=== PATIENT | female | born 1945 | race American Indian/Alaskan Native ===

== ENCOUNTER 2016-06-17 13:46 | Emergency (ER) | payer MEDICARE, MEDICAID ==
[2016-06-17] MEDS ORDERED: Ondansetron ODT TAB* 4 MG PO ONE (14:49)
[2016-06-17] MEDS ORDERED: Phenazopyridine TAB* 100 MG PO ONE (14:49)
--- NOTE | 2016-06-17 15:39 | RAD ---
Indication: Right great toe injury. 3 views of the right great toe demonstrates no fracture. No other bone or joint abnormality is identified. IMPRESSION: No fracture of the right great toe is noted.
--- NOTE | 2016-06-17 15:43 | ED ---
Skin Complaint - HPI Summary HPI Summary: 71F w/ PMH of DM and HTN presents with right great toe injury today. She state she does not take anything for her DM but has diabetic neuropathy in her feet. She states she did not notice any injury today but her toe was normal today and then she noticed her nail was bleeding. She is here for antibiotic prophylaxis as she has a previous foot infection and almost had her foot amputated. She cleaned the area and placed neosporin on it. The nail is still on her foot but is very loose. Denies any chest pain, SOB, or headache. Has history of HTN and took medication today. - History of Current Complaint Chief Complaint: EDExtremityLower Time Seen by Provider: 06/17/16 14:48 Stated Complaint: TOE PAIN Pain Intensity: 0 - Additional Pertinent History Primary Care Physician: JORDAN - Allergy/Home Medications Allergies/Adverse Reactions: Allergies Allergy/AdvReac Type Severity Reaction Status Date / Time Codeine Allergy Intermediate Hives Verified 10/06/15 13:42 Latex Allergy Intermediate Hives Verified 10/06/15 13:42 Sulfa Drugs Allergy Intermediate Hives Verified 10/06/15 13:42 Adhesive Tape Allergy Rash Verified 10/06/15 13:42 PMH/Surg Hx/FS Hx/Imm Hx Endocrine/Hematology History: Reports: Hx Diabetes - TYPE II- NO MEDICATION FOR - DIET CONTROLLED PER PATIENT, Hx Thyroid Disease - GOITERS Denies: Hx Anticoagulant Therapy Cardiovascular History: Reports: Hx Hypercholesterolemia, Hx Hypertension - ON MEDICATION FOR Denies: Hx Congestive Heart Failure, Hx Pacemaker/ICD Respiratory History: Reports: Hx Asthma, Hx Chronic Obstructive Pulmonary Disease (COPD) Denies: Hx Sleep Apnea GI History: Reports: Hx Gastroesophageal Reflux Disease, Other GI Disorders - ESOPHAGUS "WEAK"-DIFF SWALLOWING PILLS AT TIMES History: Reports: Hx Kidney Infection, Other Problems/Disorders - KIDNEY INFECTIONS Denies: Hx Renal Disease Musculoskeletal History: Reports: Hx Arthritis, Hx Rheumatoid Arthritis, Hx Gout , Other Musculoskeletal History - ARTHRITIS Sensory History: Reports: Hx Contacts or Glasses - reading Denies: Hx Hearing Aid Opthamlomology History: Reports: Hx Contacts or Glasses - reading Neurological History: Reports: Hx Headaches - ONCE IN A WHILE, Hx Seizures - A CHILD, Hx Transient Ischemic Attacks (TIA) Denies: Hx Dementia Psychiatric History: Reports: Hx Depression, Hx Suicide Attempt - in the past- 1980, Hx Substance Abuse - in the past - Surgical History Surgery Procedure, Year, and Place: TONSILECTOMY. ADENOIDECTOMY. TUBAL LIGATION-[facility]. HYSTERECTOMY-[facility]. CHOLECYSTECTOMY-[facility]. PARTIAL THYROIDECTOMY LEFT- [facility] Hx Anesthesia Reactions: No - Immunization History Date of Tetanus Vaccine: UNKNOWN Date of Influenza Vaccine: UNKNOWN Infectious Disease History: No Infectious Disease History: Denies: Hx Hepatitis, Hx Human Immunodeficiency Virus (HIV), Traveled Outside the [place] in Last 30 Days - Family History Known Family History: Positive: None - reviewed & noncontributory, Cardiac Disease - AAA - Social History Alcohol Use: None Hx Substance Use: No Substance Use Type: Reports: None Hx Tobacco Use: Yes - quit 1985 Smoking Status (MU): Former Smoker Type: Cigarettes Amount Used/How Often: 2 PPD X 23 YEARS Have You Smoked in the Last Year: No Review of Systems Negative: Fever Negative: Chest Pain Negative: Shortness Of Breath Positive: Other - nail abrasion All Other Systems Reviewed And Are Negative: Yes Physical Exam Triage Information Reviewed: Yes Vital Signs On Initial Exam: Initial Vitals Temp Pulse Resp BP Pulse Ox 97.3 F 57 97 06/17/16 13:58 06/17/16 13:58 06/17/16 13:58 06/17/16 13:58 06/17/16 13:58 Vital Signs Reviewed: Yes Appearance: Positive: Well-Appearing Skin: Positive: Warm, Dry Head/Face: Positive: Normal Head/Face Inspection Eyes: Positive: Normal, Conjunctiva Clear Respiratory/Lung Sounds: Positive: Clear to Auscultation, Breath Sounds Present Cardiovascular: Positive: Normal, RRR Musculoskeletal: Positive: Strength/ROM Intact - of great toe right, Other - good pulsess, has no sensation of toe at baseline, nail is loose on nailbed with abrasion around nail Diagnostics - Vital Signs Vital Signs Temp Pulse Resp BP Pulse Ox 06/17/16 14:26 97.3 F 57 97 06/17/16 13:58 97.3 F 57 97 - Laboratory Lab Statement: Any lab studies that have been ordered have been reviewed, and results considered in the medical decision making process. - Radiology toe Xray Interpretation: No Acute Changes Radiology Interpretation Completed By: Radiologist Course/Dx - Course Course Of Treatment: 71F presents with injury to right great toe today that does not know how got as has DM neuropathy and can not feel toes. Cleaned area prior to arrival. on exam no suturable area clean toe and placed steri strips on to keep nail on as long as possible, will place on keflex due to DM and previous foot infection. xray toe normal. told to follow up with primary as BP is high and for wound check. BP on manual was 178/80 and denies any symptoms for HTN. patient understands and agrees with plan - Differential Diagnoses - Skin Complaint Differential Diagnoses: Abscess, Cellulitis, Other - laceration - Diagnoses Provider Diagnoses: Injury of great toe, Hypertension Discharge - Discharge Plan Condition: Good Disposition: HOME Prescriptions: Cephalexin CAP* [Keflex CAP*] 500 mg PO QID #27 cap Referrals: Neno Busch MD [Primary Care Provider] - Additional Instructions: Take antibiotics four times a day for 7 days, first dose given in ED Keep area clean and dry, apply neosporin to area Follow up with primary within 3 days for wound check and for high blood pressure Establish care with sawdust drier for foot care Return to ED if develop fever, spread redness, or any new or worsening symptoms
[2016-06-17] MEDS ORDERED: Cephalexin CAP* 500 MG PO ONE (15:45)
[2016-06-17 15:46] VITALS: BP 172/80
== END 2016-06-17 16:05 | disposition home or self-care (01) ==
LOC: ED 13:46
DX: S90.411A Abrasion, right great toe, initial encounter (principal); I10 Essential (primary) hypertension; X58.XXXA Exposure to other specified factors, initial encounter; Y93.9 Activity, unspecified; Y92.9 Unspecified place or not applicable
CPT/HCPCS: 99282

== ENCOUNTER → 2017-09-25 06:47 | Day surgery (SDC) | payer MEDICARE, MEDICAID ==
[~2017-09-25 06:47] MED LIST: Atenolol TAB* 50 MG PO ONE; Heparin 2 UNITS/ML IVPREMIX* 2,000 ML IV ONE; Heparin(*) 1000 UNIT/ML 10 ML VIAL CATH LAB IV ONE; Iohexol 350 (CONTRAST) 200 ML MDV IV ONE; LORazepam TAB(*) 1 MG ONE; Lidocaine 1%* 5 ML VIAL ONE; Lisinopril TAB* 10 MG PO ONE; Metoprolol Tartrate IV* 1 MG/ML 5 ML VIAL ONE; Midazolam* 1 MG/ML 5 ML VIAL (5 MG) ONE; VERAPAMIL 2.5 MG/ML 2 ML VIAL ** 5 mg/2 ml ONE; fentaNYL* 50 MCG/ML 2 ML VIAL (100 MCG VIAL) ONE; nitroGLYCERIN DRIP* 25,000 MCG/250 ML BTL ONE
[2017-09-25 09:13] LABS: ABS Basophils 0 10^3/ul (0-0.2); ABS Eosinophils 0.1 10^3/ul (0-0.6); ABS Lymphocytes 1.4 10^3/ul (1.0-4.8); ABS Monocytes 0.4 10^3/ul (0-0.8); ABS Neutrophils 5.5 10^3/ul (1.5-7.7); ABS Nucleated RBC 0 10^3/ul; Hematocrit 32 % (35-47); Hemoglobin 10.4 g/dl (12.0-16.0); Lymphocyte % 18.7 % (25-47); Mean Corpuscular HGB Conc 33 g/dl (31-36); Mean Corpuscular Hemoglobin 26 pg (27-31); Mean Corpuscular Volume 78 fL (80-97); Mean Platelet Volume 7.8 um3 (7.4-10.4); Nucleated Red Blood Cells % 0; Platelet Count 232 10^3/ul (150-450); Red Blood Count 4.08 10^6/ul (4.00-5.40); Red Cell Distribution Width 17 % (10.5-15); White Blood Count 7.5 10^3/ul (3.5-10.8)
[2017-09-25 09:28] LABS: INR 0.94 (0.77-1.02)
[2017-09-25 09:32] LABS: EGFR Non-African American 78.1 (>60)
[2017-09-25 13:50] VITALS: BP 174/65
--- NOTE | 2017-09-25 21:12 | RAD ---
CPT II Codes: G9500 Procedure(s) performed: 1. Diagnostic pelvic and bilateral lower extremity arteriogram. 2. Atherectomy and balloon angioplasty of the left superficial femoral artery. 3. Minx closure device to the right common femoral arteriotomy. Date of service: September 25, 2017 Indication for procedure: Lower extremity claudication pain and history of poorly healing foot bones Comparison: EDY/PVR May 15, 2017 Contrast: 95 mL Omnipaque 350 Fluoroscopy Time: 17.9 minutes Vessels Accessed: Percutaneous access was obtained with ultrasound guidance in the right common femoral artery in the retrograde direction towards the heart. Catheter arteriography, with the catheter tip located within the lumen of the following arteries, was performed at the right external iliac artery, aorta, left external iliac artery, left common femoral artery, left superficial femoral artery and left popliteal artery. Anesthesia: Conscious sedation with IV Fentanyl and Versed as well as local 1% lidocaine injected locally at the arteriotomy site. Conscious sedation time: Timeout: 0825 hours Case end: 1035 hours Total conscious sedation time: 2 hours and 10 minutes Additional medications: * 500 mcg IA nitroglycerin injected intermittently throughout the course of the procedure to alleviate arterial spasm and to control hypertension. * IV heparin 5000 Units to achieve a goal ACT of 250-300. * The patient received 1 mg of p.o. Ativan prior to the onset of the procedure. * Metoprolol 15 mg IV administered in 5 mg aliquots PROCEDURE NOTE AND INTRAPROCEDURAL IMAGING FINDINGS: Immediately prior to the procedure the patient signed consent after thoroughly discussing all risks, benefits and alternative therapies. The patient was positioned on the fluoroscopy table in the supine position and the bilateral groins were shaved, prepped and the patient was draped in standard sterile fashion. Using fluoroscopic imaging the location of the right common femoral head was marked externally with a skin marker on the patient's groin. Utilizing sonographic guidance and palpation, the right common femoral artery was cannulated overlying the femoral head with an 18-gauge needle. An ultrasound image was saved. A 0.035" wire was slowly and smoothly advanced into the common femoral artery under fluoroscopic imaging. No buckling of the wire was visualized to indicate dissection. With the wire securing percutaneous arterial access, the needle was removed and a 5-[place] SideArm access sheath was advanced under fluoroscopic control into the common femoral artery retrograde into the left external iliac artery securing access. Through the side arm of the access sheath arteriography of the right common femoral artery demonstrated an appropriate puncture of the common femoral artery above the bifurcation and below the inferior epigastric artery. The patient's most recent CT angiogram is dated June 26, 2015 and therefore contrast arteriography is necessary to carefully identify and treat vascular disease. Over the wire a multiside hole flush catheter was advanced into the aorta and contrast arteriography was performed showing the lower abdominal aorta and bilateral iliac arterial system to be adequately patent as far as the bilateral common femoral arteries. The wire was reinserted and utilizing a 5-[place]er C2 catheter access was obtained into the contralateral left side iliac arterial system and a wire was advanced into the left superficial femoral artery. The 5-[place]er catheter was advanced over the wire and contrast arteriography from the left common femoral artery was obtained demonstrating multifocal stenoses in the left superficial femoral artery with the most severe stenosis at the mid-level left superficial femoral artery. From the same access point a second superficial arteriogram was performed demonstrating patent flow in the popliteal artery and proximal anterior tibial artery and tibioperoneal trunk. A third arteriogram was performed from this point more inferiorly including the superior half of the left lower leg which demonstrated no significant filling of the posterior tibial artery and mild multifocal stenoses in the anterior tibial artery but with adequate filling of the CHARLIE and peroneal artery. A long stiff hydrophilic wire was advanced through the catheter and advanced into the left superficial femoral artery securing access. The 5-[place] SideArm sheath was removed and exchanged for a 65 cm 6-[place] sheath which was then advanced over the wire under fluoroscopic control until the tip terminating in the left common femoral artery. Over the wire a 4-[place] curved tip catheter was advanced until the tip was in the left popliteal artery and arteriography of the left lower leg and foot was performed demonstrating in-line flow provided by the anterior tibial artery. The peroneal artery is hypertrophied and provides collateral filling to the plantar arteries while there is little to no significant filling of the diminutive posterior tibial artery. Through the 4-[place]er catheter a 0.014" Viper wire was advanced under fluoroscopic control into the distal left peroneal artery securing access. Over this wire a Diamondback 2.0 Solid orbital atherectomy system was advanced and orbital atherectomy was performed across the proximal and mid level left superficial femoral artery at the previously identified sites of stenoses. Contrast was intermittently injected through the sheath with the tip in the left common femoral artery to evaluate for improved patency and for any complications such as extravasation. The atherectomy system was removed and a 5 mm x 200 mm Passeo balloon was advanced over the wire and balloon angioplasty was performed across the length of the left superficial femoral artery. During each inflation the balloon remained inflated for a minimum of 3 minutes to address spasm. The balloon was inflated to 12 micki corresponding to an approximate diameter measurement of 5.2 mm. After this series of inflation is there are was vastly improved flow briskly through the left superficial femoral artery injecting from the sheath now located at the left external iliac artery. The 0.035 inch stiff hydrophilic wire was reinserted and the long access sheath was removed and exchanged for a 11 cm 6-[place]er sheath which was advanced until the tip was in the right external iliac artery. From this access point arteriography of the right lower extremity was performed demonstrating multifocal stenoses throughout the proximal mid level and upper distal right superficial femoral artery similar to the contralateral side. Patent flow was documented in the right popliteal artery. The anterior tibial artery becomes occluded shortly after its branch point and 2 vessel runoff into the right foot is provided by the posterior tibial and peroneal arteries. Through the side arm of the access sheath arteriography of the right common femoral artery demonstrated an appropriate puncture of the common femoral artery above the bifurcation and below the inferior epigastric artery. After an appropriate resterilization of the arteriotomy and exchange for new sterile gloves, a Minx closure device was deployed at the common femoral arteriotomy and pressure held for approximately 20 minutes. There were no signs of bleeding at the percutaneous arterial access site and the site was dressed with sterile gauze and Tegaderm. The patient tolerated the procedure well and was transferred to angiography holding bay for standard post procedural observation. SUMMARY OF PROCEDURE, IMAGING FINDINGS AND INTERVENTIONS PERFORMED: 1. Diagnostic studies performed: * Arterial access was obtained at the right common femoral artery in the retrograde direction (i.e. towards the heart) with ultrasound guidance. A sonographic image was recorded. * Diagnostic catheter angiography (necessary to perform the appropriate interventions) was performed with the catheter tip in the right external iliac artery, aorta, left external iliac artery, left common femoral artery, left superficial femoral artery and left popliteal artery.. * Catheter arteriography was performed of the lower abdominal aorta, bilateral iliac arterial system and the bilateral lower extremities as far as the forefeet bilaterally. * At the conclusion of the procedure arteriography was performed through the side arm of the access sheath to image the distal right external iliac artery, right common femoral artery and proximal superficial femoral artery and femoral profundus. 2. Interpretation of diagnostic studies performed: * Multifocal stenoses identified in the bilateral superficial femoral arteries. * 2 vessel runoff is provided in the left lower leg by the anterior tibial artery and peroneal artery. The peroneal artery fills the plantar arteries. There is essentially no filling seen in the left posterior tibial artery. * The right anterior tibial artery becomes occluded shortly after its branch point. The patient receives dominant blood flow provided by the right posterior tibial artery supplemented by the peroneal artery. * Arteriography performed for the purpose of deploying a percutaneous arterial closure device demonstrates adequately patent right external iliac artery, common femoral artery and proximal superficial femoral artery and femoral profundus. 3. Surgical interventions performed: * Atherectomy of the left superficial femoral artery utilizing a 2.0 Diamondback Solid orbital atherectomy device followed by balloon angioplasty with a 5 mm x 200 mm Passeo balloon. * Closure of the right common femoral artery was achieved with a Minx closure device followed by 20 minutes of gentle manual pressure. 4. Interpretation of interventions performed: * Final arteriography demonstrated vastly improved brisk flow through the left superficial femoral artery into the popliteal and proximal infrapopliteal left arteries. Plan: 1. Aspirin 81 mg p.o. daily for life. 2. Plavix 75 mg p.o. daily x 6 months. 3. Clinical and imaging follow-up according to standard Interventional Radiology protocol.
== END | disposition home or self-care (01) ==
LOC: CHICATH 06:47
PROVIDERS: ATTEND Radiology Diagnostic Radiology
DX: I70.223 Atherosclerosis of native arteries of extremities with rest pain, bilateral legs (principal); I10 Essential (primary) hypertension; E03.9 Hypothyroidism, unspecified; E11.9 Type 2 diabetes mellitus without complications; Z79.01 Long term (current) use of anticoagulants; Z87.891 Personal history of nicotine dependence; E78.5 Hyperlipidemia, unspecified
CPT/HCPCS: 36415; 75716; 76937; 80048; 85025; 85347; 85610; 99156; 99157; A9270-GY; C1724; C1760; C1769; C1887; C1894; J1644; J2250; J3010; J3490

== ENCOUNTER 2017-11-18 16:38 | Emergency (ER) | payer MEDICARE, MEDICAID ==
[2017-11-18] MEDS ORDERED: NS 0.9% 500 ML* 500 ML IV ONE (17:35)
[2017-11-18 19:04] LABS: EGFR Non-African American 62.2 (>60)
[2017-11-18] MEDS ORDERED: NS 0.9% 1000 ML* 1,000 ML IV ONE (19:19)
[2017-11-18 19:20] LABS: ABS Basophils 0.1 10^3/ul (0-0.2); ABS Eosinophils 0.1 10^3/ul (0-0.6); ABS Lymphocytes 2.4 10^3/ul (1.0-4.8); ABS Monocytes 0.8 10^3/ul (0-0.8); ABS Neutrophils 12.8 10^3/ul (1.5-7.7); ABS Nucleated RBC 0 10^3/ul; Eosinophil % 0.7 % (0-6); Hematocrit 36 % (35-47); Hemoglobin 11.3 g/dl (12.0-16.0); Lymphocyte % 14.6 % (25-47); Mean Corpuscular HGB Conc 31 g/dl (31-36); Mean Corpuscular Hemoglobin 23 pg (27-31); Mean Corpuscular Volume 74 fL (80-97); Mean Platelet Volume 8.6 um3 (7.4-10.4); Nucleated Red Blood Cells % 0; Platelet Count 298 10^3/ul (150-450); Red Cell Distribution Width 19 % (10.5-15); White Blood Count 16.1 10^3/ul (3.5-10.8)
[2017-11-18] MEDS ORDERED: Loperamide CAP* 2 MG PO ONE (21:06)
--- NOTE | 2017-11-18 21:06 | ED ---
Nausea/Vomiting/Diarrhea HPI - HPI Summary HPI Summary: Patient complains of intermittent diarrhea 2 months. States it started after leg stents placed in 09/25/17. Patient states she diarrhea is uncontrollable and she does not always get to the bathroom in time. Denies blood or pain. Patient states she takes Pepto-Bismol and will be fine for a couple days before diarrhea returns. States one episode of diarrhea in a day before she takes Pepto-Bismol and symptoms resolved. Denies fever, cough, sore throat, CP, SOB, N/V/, abdominal pain, change in urine, vaginal symptoms, blood in stools. Medical history is DM, HDL, HTN, blood clots. Patient on Plavix. - History of Current Complaint Chief Complaint: EDAbdPain Stated Complaint: LOOSE STOOL Time Seen by Provider: 11/18/17 17:32 Hx Obtained From: Patient Onset/Duration: Gradual Onset Timing: Intermittent Episodes Lasting: Severity Currently: None Pain Intensity: 0 Pain Scale Used: 0-10 Numeric Diarrhea Presence: Yes Diarrhea Characteristics: Watery - Allergies/Home Medications Allergies/Adverse Reactions: Allergies Allergy/AdvReac Type Severity Reaction Status Date / Time Adhesive Tape Allergy Rash Verified 11/18/17 17:08 codeine Allergy Hives Verified 11/18/17 17:08 latex Allergy Hives Verified 11/18/17 17:08 Sulfa (Sulfonamide Allergy Hives Verified 11/18/17 17:08 Antibiotics) PMH/Surg Hx/FS Hx/Imm Hx Endocrine/Hematology History: Reports: Hx Diabetes - TYPE II- NO MEDICATION FOR - DIET CONTROLLED PER PATIENT, Hx Thyroid Disease - GOITERS Denies: Hx Anticoagulant Therapy Cardiovascular History: Reports: Hx Hypercholesterolemia, Hx Hypertension - ON MEDICATION FOR Denies: Hx Congestive Heart Failure, Hx Pacemaker/ICD Respiratory History: Reports: Hx Asthma, Hx Chronic Obstructive Pulmonary Disease (COPD) Denies: Hx Sleep Apnea GI History: Reports: Hx Gastroesophageal Reflux Disease, Other GI Disorders - ESOPHAGUS "WEAK"-DIFF SWALLOWING PILLS AT TIMES History: Reports: Hx Kidney Infection, Other Problems/Disorders - KIDNEY INFECTIONS Denies: Hx Renal Disease Musculoskeletal History: Reports: Hx Arthritis, Hx Rheumatoid Arthritis, Hx Gout , Other Musculoskeletal History - ARTHRITIS Sensory History: Reports: Hx Contacts or Glasses - reading Denies: Hx Hearing Aid Opthamlomology History: Reports: Hx Contacts or Glasses - reading Neurological History: Reports: Hx Headaches - ONCE IN A WHILE, Hx Seizures - A CHILD, Hx Transient Ischemic Attacks (TIA) Denies: Hx Dementia Psychiatric History: Reports: Hx Depression, Hx Suicide Attempt - in the past- 1980, Hx Substance Abuse - in the past - Surgical History Surgery Procedure, Year, and Place: TONSILECTOMY. ADENOIDECTOMY. TUBAL LIGATION-[facility]. HYSTERECTOMY-[facility]. CHOLECYSTECTOMY-[facility]. PARTIAL THYROIDECTOMY LEFT- [facility] Hx Anesthesia Reactions: No - Immunization History Date of Tetanus Vaccine: UNKNOWN Date of Influenza Vaccine: UNKNOWN Infectious Disease History: No Infectious Disease History: Denies: Hx Hepatitis, Hx Human Immunodeficiency Virus (HIV), Traveled Outside the [place] in Last 30 Days - Family History Known Family History: Positive: None - reviewed & noncontributory, Cardiac Disease - AAA - Social History Alcohol Use: None Hx Substance Use: No Substance Use Type: Reports: None Hx Tobacco Use: Yes - quit 1985 Smoking Status (MU): Former Smoker Type: Cigarettes Amount Used/How Often: 2 PPD X 23 YEARS Have You Smoked in the Last Year: No Review of Systems Constitutional: Negative Eyes: Negative ENT: Negative Cardiovascular: Negative Respiratory: Negative Positive: Diarrhea Genitourinary: Negative Musculoskeletal: Negative Skin: Negative Neurological: Negative Psychological: Normal All Other Systems Reviewed And Are Negative: Yes Physical Exam Triage Information Reviewed: Yes Vital Signs On Initial Exam: Initial Vitals Temp Pulse Resp BP Pulse Ox 97.9 F 79 16 144/99 97 11/18/17 16:47 11/18/17 16:47 11/18/17 16:47 11/18/17 16:47 11/18/17 16:47 Vital Signs Reviewed: Yes Appearance: Positive: Well-Appearing Skin: Positive: Warm Head/Face: Positive: Normal Head/Face Inspection Eyes: Positive: Normal Neck: Positive: Supple Respiratory/Lung Sounds: Positive: Clear to Auscultation Cardiovascular: Positive: Normal Abdomen Description: Positive: Nontender Musculoskeletal: Positive: Normal Neurological: Positive: Normal Psychiatric: Positive: Normal AVPU Assessment: Alert - Ocate Coma Scale Best Eye Response: 4 - Spontaneous Best Motor Response: 6 - Obeys Commands Best Verbal Response: 5 - Oriented Coma Scale Total: 15 Diagnostics - Vital Signs Vital Signs Temp Pulse Resp BP Pulse Ox 11/18/17 20:56 72 197/94 11/18/17 20:43 62 194/73 97 11/18/17 20:13 58 164/65 96 11/18/17 20:00 68 95 11/18/17 19:45 72 95 11/18/17 19:42 73 95 11/18/17 16:47 97.9 F 79 16 144/99 97 - Laboratory Lab Results: Lab Results 11/18/17 11/18/17 Range/Units 18:33 18:33 WBC 16.1 H (3.5-10.8) 10^3/ul RBC 4.90 (4.00-5.40) 10^6/ul Hgb 11.3 L (12.0-16.0) g/dl Hct 36 (35-47) % MCV 74 L (80-97) fL MCH 23 L (27-31) pg MCHC 31 (31-36) g/dl RDW 19 H (10.5-15) % Plt Count 298 (150-450) 10^3/ul MPV 8.6 (7.4-10.4) um3 Neut % (Auto) 79.3 (38-83) % Lymph % (Auto) 14.6 L (25-47) % [place] % (Auto) 4.8 (0-7) % Eos % (Auto) 0.7 (0-6) % Baso % (Auto) 0.6 (0-2) % Absolute Neuts (auto) 12.8 H (1.5-7.7) 10^3/ul Absolute Lymphs (auto) 2.4 (1.0-4.8) 10^3/ul Absolute Monos (auto) 0.8 (0-0.8) 10^3/ul Absolute Eos (auto) 0.1 (0-0.6) 10^3/ul Absolute Basos (auto) 0.1 (0-0.2) 10^3/ul Absolute Nucleated RBC 0 10^3/ul Nucleated RBC % 0 Microcytosis 1+ Sodium 137 (135-145) mmol/L Potassium 4.9 (3.5-5.0) mmol/L Chloride 110 (101-111) mmol/L Carbon Dioxide 21 L (22-32) mmol/L Anion Gap 6 (2-11) mmol/L BUN 31 H (6-24) mg/dL Creatinine 0.89 (0.51-0.95) mg/dL Est GFR ( Amer) 75.2 (>60) Est GFR (Non-Af Amer) 62.2 (>60) BUN/Creatinine Ratio 34.8 H (8-20) Glucose 162 H (70-100) mg/dL Calcium 10.7 H (8.6-10.3) mg/dL Total Bilirubin 0.20 (0.2-1.0) mg/dL AST 12 L (13-39) U/L ALT 9 (7-52) U/L Alkaline Phosphatase 131 H (34-104) U/L C-Reactive Protein 19.76 H (<8.01) mg/L Total Protein 7.2 (6.4-8.9) g/dL Albumin 3.9 (3.2-5.2) g/dL Globulin 3.3 (2-4) g/dL Albumin/Globulin Ratio 1.2 (1-3) Result Diagrams: 11/18/17 18:33 11/18/17 18:33 Lab Statement: Any lab studies that have been ordered have been reviewed, and results considered in the medical decision making process. Naus/Vom/Diarrhea Course/Dx - Course Course Of Treatment: Patient complains of intermittent diarrhea 2 months. States it started after leg stents placed in 09/25/17. Patient states she diarrhea is uncontrollable and she does not always get to the bathroom in time. Denies blood or pain. Patient states she takes Pepto-Bismol and will be fine for a couple days before diarrhea returns. States one episode of diarrhea in a day before she takes Pepto-Bismol and symptoms resolved. Denies fever, cough, sore throat, CP, SOB, N/V/, abdominal pain, change in urine, vaginal symptoms, blood in stools. Medical history is DM, HDL, HTN, blood clots. Patient on Plavix. no travel. Vital signs within normal limits. White count 16.1. Normal CR. BUN/CR ratio 34. Patient given 1 L of fluids. Fecal lactoferrin negative. Rx for Imodium. - Differential Dx/Diagnosis Provider Diagnoses: diarrhea Condition At Discharge: Stable Discharge - Sign-Out/Discharge Documenting (check all that apply): Patient Departure - Discharge Plan Condition: Stable Disposition: HOME Prescriptions: Loperamide CAP* [Imodium CAP*] 2 mg PO TID 7 Days #20 cap Patient Education Materials: Acute Diarrhea (ED) Referrals: Neno Busch MD [Primary Care Provider] - Additional Instructions: Follow-up with primary care. Return to the ED for any new or worsening symptoms - Billing Disposition and Condition Condition: STABLE Disposition: Home
[2017-11-18 22:33] VITALS: BP 190/103
== END 2017-11-18 22:31 | disposition home or self-care (01) ==
LOC: ED 16:38
DX: R19.7 Diarrhea, unspecified (principal); E11.9 Type 2 diabetes mellitus without complications; I10 Essential (primary) hypertension; E78.5 Hyperlipidemia, unspecified; Z86.718 Personal history of other venous thrombosis and embolism; Z87.891 Personal history of nicotine dependence; Z79.02 Long term (current) use of antithrombotics/antiplatelets; Z79.899 Other long term (current) drug therapy; Z88.5 Allergy status to narcotic agent; Z88.2 Allergy status to sulfonamides
CPT/HCPCS: 36415; 80053; 83630; 85025; 86140; 87045; 87046; 87899; 96360; 99283; A9270-GY

== ENCOUNTER 2018-02-01 18:53 | Inpatient (IN) | payer MEDICARE, MEDICAID ==
[2018-02-01] MEDS ORDERED: hydrALAZINE IV* 20 MG/ML VIAL IV SLOW PU ONE ×2 (19:48→20:24)
[2018-02-01] MEDS ORDERED: Albuterol/Ipratropium NEB.SOL* Albuterol 2.5 MG/Ipratropium 0.5 MG 3 ML INH ONE (19:49)
[2018-02-01] MEDS ORDERED: Magnesium Sulfate 2 GM IV* 2 GM/50 ML BAG IVPB ONE (19:51)
[2018-02-01] MEDS ORDERED: methylPREDNISolone 125 MG* 2 ML VIAL IV ONE (19:51)
--- NOTE | 2018-02-01 19:51 | ED ---
Shortness of Breath - HPI Summary HPI Summary: Patient is a 72 y/o F presenting to ED via ambulance with complaints of slight SOB and intermittent cough onsetting a few days ago. Patient notes that she lives with a roommate who recently went to ED, came back. A few days later, patient states that she developed Sx. No respiratory distress is noted at this time. On triage, associated severity is rated 9/10, nothing is noted to aggravate/alleviate Sx. Home medications and allergies are reviewed. - History of Current Complaint Chief Complaint: EDUpperRespComplaint Hx Obtained From: Patient Onset/Duration: Lasting Days - a few, Still Present Timing: Intermittent Episodes Lasting: - cough Current Severity: Severe Aggrevating Factors: Nothing Alleviating Factors: Nothing - Allergy/Home Medications Allergies/Adverse Reactions: Allergies Allergy/AdvReac Type Severity Reaction Status Date / Time Adhesive Tape Allergy Rash Verified 11/18/17 17:08 codeine Allergy Hives Verified 11/18/17 17:08 latex Allergy Hives Verified 11/18/17 17:08 Sulfa (Sulfonamide Allergy Hives Verified 11/18/17 17:08 Antibiotics) PMH/Surg Hx/FS Hx/Imm Hx Endocrine/Hematology History: Reports: Hx Diabetes - TYPE II- NO MEDICATION FOR - DIET CONTROLLED PER PATIENT, Hx Thyroid Disease - GOITERS Denies: Hx Anticoagulant Therapy Cardiovascular History: Reports: Hx Hypercholesterolemia, Hx Hypertension - ON MEDICATION FOR Denies: Hx Congestive Heart Failure, Hx Pacemaker/ICD Respiratory History: Reports: Hx Asthma, Hx Chronic Obstructive Pulmonary Disease (COPD) Denies: Hx Sleep Apnea GI History: Reports: Hx Gastroesophageal Reflux Disease, Other GI Disorders - ESOPHAGUS "WEAK"-DIFF SWALLOWING PILLS AT TIMES History: Reports: Hx Kidney Infection, Other Problems/Disorders - KIDNEY INFECTIONS Denies: Hx Renal Disease Musculoskeletal History: Reports: Hx Arthritis, Hx Rheumatoid Arthritis, Hx Gout , Other Musculoskeletal History - ARTHRITIS Sensory History: Reports: Hx Contacts or Glasses - reading Denies: Hx Hearing Aid Opthamlomology History: Reports: Hx Contacts or Glasses - reading Neurological History: Reports: Hx Headaches - ONCE IN A WHILE, Hx Seizures - A CHILD, Hx Transient Ischemic Attacks (TIA) Denies: Hx Dementia Psychiatric History: Reports: Hx Depression, Hx Suicide Attempt - in the past- 1980, Hx Substance Abuse - in the past - Surgical History Surgery Procedure, Year, and Place: TONSILECTOMY. [place] [place]. CHOLECYSTECTOMY-[facility]. PARTIAL THYROIDECTOMY LEFT- [facility] Hx Anesthesia Reactions: No - Immunization History Date of Tetanus Vaccine: UNKNOWN Date of Influenza Vaccine: UNKNOWN Infectious Disease History: No Infectious Disease History: Denies: Hx Hepatitis, Hx Human Immunodeficiency Virus (HIV), Traveled Outside the [place] in Last 30 Days - Family History Known Family History: Positive: Cardiac Disease - AAA - Social History Alcohol Use: None Hx Substance Use: No Substance Use Type: Reports: None Hx Tobacco Use: Yes - quit 1985 Smoking Status (MU): Former Smoker Type: Cigarettes Amount Used/How Often: 2 PPD X 23 YEARS Have You Smoked in the Last Year: No Review of Systems Negative: Fever - on vitals, temp is 98.6 F Positive: Shortness Of Breath, Cough All Other Systems Reviewed And Are Negative: Yes Physical Exam - Summary Physical Exam Summary: VITAL SIGNS: Reviewed. GENERAL: Patient is a well-developed and morbidly obese female who is lying comfortable in the stretcher. Patient is not in any acute respiratory distress. Patient has poor hygiene HEAD AND FACE: No signs of trauma. No ecchymosis, hematomas or skull depressions. No sinus tenderness. EYES: PERRLA, EOMI x 2, No injected conjunctiva, no nystagmus. EARS: Hearing grossly intact. Ear canals and tympanic membranes are within normal limits. MOUTH: Oropharynx within normal limits. NECK: Supple, trachea is midline, no adenopathy, no JVD, no carotid bruit, no c- spine tenderness, neck with full ROM. CHEST: Symmetric, no tenderness at palpation LUNGS: Decreased breath sounds bilaterally. No wheezing or crackles. CVS: Regular rate and rhythm, S1 and S2 present, no murmurs or gallops appreciated. ABDOMEN: Soft, non-tender. No signs of distention. No rebound no guarding, and no masses palpated. Bowel sounds are normal. EXTREMITIES: FROM in all major joints, no edema, no cyanosis or clubbing. NEURO: Alert and oriented x 3. No acute neurological deficits. Speech is normal and follows commands. SKIN: Dry and warm Triage Information Reviewed: Yes Vital Signs On Initial Exam: Initial Vitals Temp Pulse Resp BP Pulse Ox 98.6 F 80 20 215/88 93 02/01/18 19:11 02/01/18 19:11 02/01/18 19:11 02/01/18 19:11 02/01/18 19:11 Vital Signs Reviewed: Yes Diagnostics - Vital Signs Vital Signs Temp Pulse Resp BP Pulse Ox 02/01/18 19:11 98.6 F 80 20 215/88 93 - Laboratory Result Diagrams: 02/01/18 19:55 02/01/18 19:55 Lab Statement: Any lab studies that have been ordered have been reviewed, and results considered in the medical decision making process. - Radiology CXR Radiology Interpretation Completed By: ED Physician Summary of Radiographic Findings: CXR: right lower lobe infiltrate, pending official report. - EKG 2038 Cardiac Rate: NL - RATE OF 93 BPM EKG Rhythm: Sinus Rhythm Summary of EKG Findings: EKG showed sinus rhythm with rate of 93 BPM,. Normal axis. Normal interval. No ischemic changes. Course/Dx - Course Course Of Treatment: Patient is a 72 y/o F presenting to ED via ambulance with complaints of slight SOB and intermittent cough onsetting a few days ago. Patient notes that she lives with a roommate who recently went to ED, came back. A few days later, patient states that she developed Sx. No respiratory distress is noted at this time. On physical exam, patient is noted to be morbidly obese with poor hygiene. She has decreased breath sounds bilaterally. CXR: right lower lobe infiltrate. EKG showed sinus rhythm with rate of 93 BPM,. Normal axis. Normal interval. No ischemic changes. Labs showed Hgb 9.6 Hct 32 , MCV 69, MCH 21, MCHC 30, RDW 21, BUN/creatinine ratio 30.6, glucose 208, lactic acid 1.5, AST 10, Alk phos 124, trop 0, CRP 69.38, BNP 365. Influenza A, B were negative. During ED course, patient received solu-medrol 125 mg IV ED ONCE ONE, magnesium sulfate 2 mg in 50 mls @ 50 mls/hr IVPB ONCE ONE, Levaquin/ dextrose 750 mg in 150 mls @ 100 mls/hr IVPB ONCE ONE, apresoline 10 mg IV SLOW PU ED ONCE ONE x2, duoneb 1 neb INH ED ONCE ONE. Patient's case was discussed with Dr. Villaseñor, Dr. Villaseñor accepts patient for admission. - Diagnoses Provider Diagnoses: PNA (pneumonia), HTN (hypertension) - Physician Notifications Discussed Care of Patient With: Baylee Villaseñor Time Discussed With Above Provider: 21:48 Instructed by Provider To: Other - 2049 - hospitalist was paged at this time. 2147 - Patient's case was discussed with Dr. Villaseñor, Dr. Villaseñor accepts patient for admission. Discharge - Sign-Out/Discharge Documenting (check all that apply): Patient Departure - admit - Discharge Plan Condition: Good Disposition: ADMITTED TO [facility] Referrals: Neno Busch MD [Primary Care Provider] - - Attestation Statements Document Initiated by Scribe: Yes Documenting Scribe: OLIVIA ESCUDERO Provider For Whom Scribe is Documenting (Include Credential): PATRICK LINDA MD Scribe Attestation: I, OLIVIA ESCUDERO, scribed for PATRICK LINDA MD on 02/01/18 at 2211. Status of Scribe Document: Ready
[2018-02-01] MEDS ORDERED: Levofloxacin 750 MG IVPREMIX(* 750 MG/150 ML BAG IVPB ONE (20:09)
[2018-02-01 20:17] LABS: ABS Basophils 0 10^3/ul (0-0.2); ABS Eosinophils 0.1 10^3/ul (0-0.6); ABS Lymphocytes 1.7 10^3/ul (1.0-4.8); ABS Monocytes 0.7 10^3/ul (0-0.8); ABS Neutrophils 6.7 10^3/ul (1.5-7.7); ABS Nucleated RBC 0 10^3/ul; Eosinophil % 1.6 %; Hematocrit 32 % (35-47); Hemoglobin 9.6 g/dl (12.0-16.0); Lymphocyte % 18.3 %; Mean Corpuscular HGB Conc 30 g/dl (31-36); Mean Corpuscular Hemoglobin 21 pg (27-31); Mean Corpuscular Volume 69 fL (80-97); Mean Platelet Volume 8.2 fL (7.4-10.4); Nucleated Red Blood Cells % 0; Platelet Count 238 10^3/ul (150-450); Red Blood Count 4.62 10^6/ul (4.00-5.40); Red Cell Distribution Width 21 % (10.5-15); White Blood Count 9.2 10^3/ul (3.5-10.8)
[2018-02-01 20:36] LABS: INR 0.94 (0.77-1.02)
[2018-02-01 20:39] LABS: EGFR Non-African American 79.4 (>60)
[2018-02-01] MEDS ORDERED: Dextrose 50% Syringe 50 ML* 25 GM/50 ML SYRINGE IV PUSH PRN (22:24)
[2018-02-01] MEDS ORDERED: Acetaminophen TAB* 325 MG PO PRN (22:24)
[2018-02-01] MEDS ORDERED: Albuterol 2.5 MG/3 ML NEB.SOL* (0.083%) INH PRN (22:24)
[2018-02-01] MEDS ORDERED: amLODIPine TAB* 5 MG PO ONE (22:28)
[2018-02-01] MEDS: Nitroglycerin 2% OINT* 1 GM PAK TOPICAL SCH (22:42)
[2018-02-01] MEDS ORDERED: Albuterol/Ipratropium NEB.SOL* Albuterol 2.5 MG/Ipratropium 0.5 MG 3 ML INH SCH (23:00)
[2018-02-01] MEDS: Albuterol 2.5 MG/3 ML NEB.SOL* (0.083%) INH SCH (23:32)
[2018-02-02] MEDS: predniSONE TAB* 20 MG PO SCH ×2 (00:46→08:57)
--- NOTE | 2018-02-02 01:25 | HP ---
CC: Dr. Busch* HISTORY AND PHYSICAL: DATE OF ADMISSION: 02/01/18 PRIMARY CARE PROVIDER: Dr. Busch. ATTENDING PHYSICIAN WHILE IN THE HOSPITAL: Dr. Baylee Villaseñor * (report dictated by Traci Lee NP) CHIEF COMPLAINT: 1. Shortness of breath. 2. Cough. 3. Not feeling well. HISTORY OF PRESENT ILLNESS: Ms. Juarez is a 72-year-old female patient, who is morbidly obese, carries a history of COPD, hypertension, hyperlipidemia, and diabetes along with COPD, who comes into the ED today stating that recently one of her roommates contracted, she believes, pneumonia or URI. She subsequently in the last few days has been having feeling congested, stuffed up, aching all over, feeling warm, just not feeling well. She noted that yesterday around 2 in the morning, she had a significant amount of shortness of breath. She just could not get comfortable. She was concerned because the breathing just was not getting any better. She denied having any chest pain. She did admit to having shortness of breath. She does state that she noted the breathing just was not getting any better and that she was concerned. She did admit to having a cough that has been again nonproductive. She says that she does have a chest pain when she is coughing. She denied any orthopnea or weight gain. She did admit to having URI- type symptoms, congestion, runny nose prior to this. She denied any vomiting, denied having any diarrhea. She did admit to no known fevers, but she came into the ED, there was concern for possible pneumonia on x- ray. She was noted in the ER to have a significantly elevated blood pressure in the 200s systolic. She does state that she has been taking her medications as prescribed. Because of the concern for pneumonia, we were asked to evaluate for admission. PAST MEDICAL HISTORY: 1. Diabetes. 2. Hypertension. 3. Hyperlipidemia. 4. COPD. 5. PAD. 6. Neuropathy. 7. Hypothyroid. PAST SURGICAL HISTORY: She has had: 1. Tonsillectomy. 2. Cholecystectomy. 3. Hysterectomy. 4. Thyroidectomy. 5. Tubal ligation. MEDICATIONS: Home meds, I need to get an accurate list, I do have a list from [employer], which include: 1. Bumex 1 mg p.o. daily. 2. Crestor 20 mg daily. 3. Multivitamin 1 tablet daily. 4. [place] 1 tablet 4 times a day as needed. 5. Hydrochlorothiazide 25 mg daily. 6. Mobic 15 mg p.o. daily with food. 7. Lisinopril 10 mg daily. 8. Symbicort 2 puffs b.i.d. 9. Synthroid 200 mcg daily. 10. Atenolol 50 mg daily. 11. Ventolin 2 puffs every 4 hours as needed. 12. Glipizide 5 mg by mouth every day. 13. Simethicone 80 mg 4 times a day after meals. That was from an old list on [employer]. We will certainly need to confirm that with her pharmacy in the morning when it does open. ALLERGIES TO MEDICATIONS: Include TAPE, CODEINE, LATEX, and SULFA. FAMILY HISTORY: Her mother had of a AAA rupture. Father had a history of ND. SOCIAL HISTORY: She is a former smoker. She does not drink alcohol. Surrogate decision maker is her daughter. REVIEW OF SYSTEMS: There is no documented fever here. She denied any significant weight change. There was no double vision. She denied having any ear discharge. There was rhinorrhea. There was sore throat. There was no thyroid enlargement. She denied having any chest pain. There was no orthopnea, there was no nocturnal dyspnea. She denied having any abdominal pain. There was no nausea or vomiting. There was no dysuria, no frequency. There was no seizure, no loss of consciousness. No pruritus and no skin ulceration. Review of 14 systems completed, all others negative. PHYSICAL EXAMINATION GENERAL: At this time, Ms. Juarez is a 72-year-old female patient. She is morbidly obese. She is sitting in the ED stretcher. She does not appear to be in any acute distress. VITAL SIGNS: Blood pressure 193/52 with a pulse of 103, respirations 20, O2 sat 95%, temperature 98.6. HEENT: Head: Atraumatic and normocephalic. Eyes: EOMs are intact. Her sclerae were anicteric and not pale. Throat: Oral mucosa appears to be moist. No oropharyngeal erythema. NECK: Supple. LUNGS: She had bilateral wheezing, more so on the left lower base. She had equal diaphragmatic expansion. HEART: Sounds S1, S2. No murmurs, rubs, or gallops. ABDOMEN: Soft, flat, nontender. Bowel sounds were present. EXTREMITIES: Pulses were 2+ throughout. She is moving all 4 extremities with 5 /5 strength. No peripheral edema. NEUROLOGIC: She is awake, she is alert, she is oriented x3. Her had no gross focal deficits. SKIN: Intact. DIAGNOSTIC STUDIES/LAB DATA: WBC of 9.2, RBC of 4.62, hemoglobin of 9.6, hematocrit of 32, her platelet count was 238. Her INR was 0.94, her PTT was 32.6. Her sodium was 139, potassium 4, chloride 109, bicarb 24, BUN 22, creatinine 0.72, glucose 208, lactate 1.5, calcium 10. Total bili 0.2, AST 10, ALT 8, alk phos 124. Troponin 0. CRP 59. BNP of 365. Albumin of 3.7. Serology was negative for flu. Chest x-ray: When I reviewed, I do appreciate that it looks like she has a right lower lobe infiltrate. I looked at the previous chest x-ray. I do not see that previously. We will await official read. She did have an EKG obtained today which does show a normal sinus rhythm. She had no ST elevation or T-wave inversion. There was rate of 93. We looked at the previous EKG, it appears to be similar. Old medical records were reviewed. ASSESSMENT AND PLAN: Ms. Juarez is a 72-year-old female patient with multiple medical problems coming into the ED today with complaints of cough, shortness of breath, upper respiratory infection symptoms. She will be admitted under inpatient status for: 1. Pneumonia. Again, this could be viral; however, she does have a history of chronic obstructive pulmonary disease, so I do think she deserves antibiotics. I will send off barrios cultures with blood cultures. She did not appear to be septic. She just has the elevated heart rate. No white count was noted, but the x-ray was concerning. I will get legionella, Streptococcus pneumoniae antigen. We will continue with Dulera. Prednisone has been ordered. Standing nebs as well and we will continue with aggressive pulmonary toileting and we will continue to follow closely. I have ordered again DuoNebs every 4 hours, steroids, and antibiotics along with Dulera. 2. Diabetes. She will be placed on lispro sliding scale. 3. Peripheral artery disease. Continue aspirin, Plavix, statin therapy. 4. Hyperlipidemia. Continue statin therapy. 5. Hypertension. Not well controlled. I did note that back in the Vascular note from June of this year, her blood pressure was in the 200. I question if it is not well controlled. I have started amlodipine down here in the ER with the nitro paste to see if this helps alleviate. She does have a headache. So, I am getting a CT of the brain and we will continue to follow, we will cycle her troponin, and we will get an echo as well and we will continue to monitor. 6. Neuropathy. Continue meds as prescribed. 7. Hypothyroid. Continue Synthroid. 8. DVT prophylaxis. She will be placed on heparin subcu. 9. Code status. Full code. 10. Fluids, electrolytes, and nutrition. She can have a heart-healthy diet. TIME SPENT: On the admission was 60 minutes, greater than half of the time was spent [id number] with the patient obtaining my history and physical, other half of the time was spent going over the plan of care with the patient and implementing plan of care. I did discuss the plan of care with my attending, Dr. Villaseñor; she is in agreement. TRACI LEE NP [id number]/[facility] #: [id number] [place]
[2018-02-02] MEDS: Nystatin TOP POWDER* 15 GM BTL TOPICAL SCH ×4 (01:57→21:04)
[2018-02-02] MEDS: Levothyroxine TAB* 100 MCG TAB PO SCH (05:38)
[2018-02-02 06:57] LABS: ABS Basophils 0 10^3/ul (0-0.2); ABS Eosinophils 0 10^3/ul (0-0.6); ABS Lymphocytes 0.8 10^3/ul (1.0-4.8); ABS Monocytes 0.1 10^3/ul (0-0.8); ABS Neutrophils 10.8 10^3/ul (1.5-7.7); ABS Nucleated RBC 0 10^3/ul; Eosinophil % 0 %; Hematocrit 30 % (35-47); Hemoglobin 9.2 g/dl (12.0-16.0); Lymphocyte % 6.8 %; Mean Corpuscular HGB Conc 30 g/dl (31-36); Mean Corpuscular Hemoglobin 21 pg (27-31); Mean Corpuscular Volume 69 fL (80-97); Mean Platelet Volume 8.6 fL (7.4-10.4); Nucleated Red Blood Cells % 0; Platelet Count 235 10^3/ul (150-450); Red Blood Count 4.43 10^6/ul (4.00-5.40); Red Cell Distribution Width 21 % (10.5-15); White Blood Count 11.7 10^3/ul (3.5-10.8)
[2018-02-02 07:02] LABS: INR 1.02 (0.77-1.02)
[2018-02-02] MEDS: Mometasone/Formoter 200/5 MDI INH SCH ×2 (07:52→19:42)
[2018-02-02 08:16] LABS: EGFR Non-African American 78.1 (>60)
[2018-02-02] MEDS ORDERED: NS 0.9% 250 ML* 250 ML ONE (08:26)
[2018-02-02] MEDS: Lisinopril TAB* 10 MG PO SCH (08:57)
[2018-02-02] MEDS: amLODIPine TAB* 5 MG PO SCH (08:57)
[2018-02-02] MEDS: Nitroglycerin 2% OINT* 1 GM PAK TOPICAL SCH ×2 (08:58→12:47)
[2018-02-02] MEDS: Clopidogrel TAB* 75 MG PO SCH (08:58)
[2018-02-02] MEDS: Aspirin 81 mg CHEW TAB* 81 MG TAB.CHEW PO SCH (08:58)
[2018-02-02] MEDS: Atorvastatin* 40 MG TAB PO SCH (08:58)
[2018-02-02] MEDS: Atenolol TAB* 50 MG PO SCH (08:58)
[2018-02-02] MEDS ORDERED: Levothyroxine TAB* 50 MCG TAB PO SCH (09:00)
[2018-02-02] MEDS: Insulin LISPRO* 1 UNITS UNIT SUBCUT SCH ×3 (09:01→17:39)
[2018-02-02] MEDS: Azithromycin IV(*) 500 MG in NS 0.9% 250 ML* 250 ML IVPB SCH (10:01)
[2018-02-02] MEDS: cefTRIAXone(*) 1 GM in NS 0.9% 50 ML* 50 ML IVPB SCH (11:11)
--- NOTE | 2018-02-02 11:19 | ECHO ---
Patient: TRISTIAN NINO [facility] Rec#: [id number] : 1945 Date: 02/02/2018 Age: 72y Height: 163 cm / 64.2 in Weight: 116.1 kg / 255.9 lbs Sex: F BSA: 2.2 Room#: [facility] Admit Date#: 02/01/2018 Type: Inpatient Referring: Ashish Lee NP Reading: Jorge Luis Hamilton MD Reverberatory Skimmer: Lisa Kaur RN RDCS CC: Neno Busch MD Transthoracic Echocardiogram Indication: Shortness of breath BP: 129/46 HR: 73 Rhythm: NSR Findings History: HTN, HLD, DM, hypothyroidism, PAD, former smoker, morbid obesity Technical Comments: The study quality is fair. The study is technically limited due to patient body habitus. The study is technically limited due to the patient's history of COPD. Left Ventricle: The left ventricular chamber size is normal. Moderate concentric left ventricular hypertrophy is observed. Global left ventricular wall motion and contractility are within normal limits. The left ventricle appears hyperdynamic. The estimated ejection fraction is greater than 65%. Abnormal left ventricular diastolic filling is observed, consistent with impaired relaxation. Left Atrium: The left atrium is mild to moderately dilated. Right Ventricle: The right ventricular cavity size is normal. The right ventricular global systolic function is normal. Right Atrium: The right atrium is mildly dilated. Aortic Valve: The aortic valve is trileaflet. The aortic valve leaflets are mildly thickened. There is aortic annular calcification. There is a trace of aortic regurgitation. There is no evidence of aortic stenosis. Mitral Valve: The mitral valve leaflets are mildly thickened. There is a trace of mitral regurgitation. There is no evidence of mitral stenosis. Tricuspid Valve: The tricuspid valve leaflets are normal. There is trace to mild tricuspid regurgitation. There is evidence of moderate pulmonary hypertension. Pulmonic Valve: The pulmonic valve structure is not well visualized. There is a trace pulmonic regurgitation. There is no pulmonic stenosis. Pericardium: There is no significant pericardial effusion. A pericardial fat pad is visualized. Aorta: There is no dilatation of the ascending aorta. There is no dilatation of the aortic arch. There is no dilation of the aortic root. Pulmonary Artery: The main pulmonary artery is not well visualized. Venous: The venous system is not well visualized. The inferior vena cava is not visualized. Conclusions Moderate concentric left ventricular hypertrophy is observed. Global left ventricular wall motion and contractility are within normal limits. The left ventricle appears hyperdynamic. The estimated ejection fraction is greater than 65%. The right ventricular global systolic function is normal. There is a trace of aortic regurgitation. There is a trace of mitral regurgitation. There is trace to mild tricuspid regurgitation. There is no significant pericardial effusion. Measurements Name Value Normal Range RVDdMajor (2D) 2.8 cm (2.2 - 4.4) RAd ISD 4CH 5 cm (3.4 - 4.9) RA (A4C)W 5 cm (2.9 - 4.6) IVSd (2D) 1.4 cm (0.6 - 1) LVPWd (2D) 1.4 cm (0.6 - 1) LVIDd (2D) 3.9 cm (3.6 - 5.4) LVIDs (2D) 1.9 cm - LV FS (2D) 51 % (25 - 45) Aortic Annulus 2 cm (1.4 - 2.6) Ao root diameter (2D) 2.8 cm (2.1 - 3.5) Ascending Ao 3 cm (2.1 - 3.4) Aortic arch 2.7 cm (1.8 - 3.4) LA dimension (AP) 2D 4.7 cm (2.3 - 3.8) LAd ISD 4CH 6 cm (2.9 - 5.3) LA ISD 4CH W 5 cm (2.5 - 4.5) Name Value Normal Range LA ESV BP (A/L) index 42 ml/m2 - Name Value Normal Range MV E-wave Vmax 1.1 m/sec - MV deceleration time 254 msec - MV A-wave Vmax 1.4 m/sec - MV E:A ratio 0.8 ratio - LV septal e' Vmax 0.07 m/sec - LV lateral e' Vmax 0.07 m/sec - LV E:e' septal ratio 15.7 ratio - LV E:e' lateral ratio 15.7 ratio - Name Value Normal Range AV Vmax 1.7 m/sec - AV VTI 34.1 cm - AV peak gradient 12 mmHg - AV mean gradient 7 mmHg - LVOT Vmax 1 m/sec - LVOT VTI 25 cm - LVOT peak gradient 4 mmHg - LVOT mean gradient 2 mmHg - KEKE Vmax 0.99 m/sec - Name Value Normal Range TR Vmax 3.1 m/sec - TR peak gradient 38 mmHg - RAP 8 mmHg - RVSP 46 mmHg - Name Value Normal Range PV Vmax 1.2 m/sec -
--- NOTE | 2018-02-02 15:00 | PN ---
Subjective Date of Service: 02/02/18 Interval History: Cough about the same, non-productive. Less SOB. No more wheezing. No chest pain. No new c/o. Objective Active Medications: Acetaminophen (Tylenol Tab*) 650 mg PO Q4H PRN PRN Reason: FEVER/PAIN Albuterol (Ventolin 2.5 Mg/3 Ml Neb.Tiffany*) 2.5 mg INH Q2H PRN PRN Reason: SOB/WHEEZING Amlodipine Besylate (Norvasc Tab*) 10 mg PO DAILY [facility] Last Admin: 02/02/18 08:57 Dose: 10 mg Aspirin (Aspirin 81 Mg Chew Tab*) 81 mg PO DAILY [facility] Last Admin: 02/02/18 08:58 Dose: 81 mg Atenolol (Tenormin Tab*) 50 mg PO DAILY [facility] Last Admin: 02/02/18 08:58 Dose: 50 mg Atorvastatin Calcium (Lipitor*) 40 mg PO DAILY [facility] Last Admin: 02/02/18 08:58 Dose: 40 mg Clopidogrel Bisulfate (Plavix Tab*) 75 mg PO DAILY [facility] Last Admin: 02/02/18 08:58 Dose: 75 mg Dextrose (D50w Syringe 50 Ml*) 12.5 gm IV PUSH .FOR FS < 60 - SS PRN PRN Reason: FS < 60 Ceftriaxone Sodium 1 gm/ (Sodium Chloride) 50 mls @ 200 mls/hr IVPB Q24H [facility] Last Admin: 02/02/18 11:11 Dose: 200 mls/hr Azithromycin 500 mg/ Sodium (Chloride) 250 mls @ 250 mls/hr IVPB Q24H [facility] Last Admin: 02/02/18 10:01 Dose: 250 mls/hr Insulin Human Lispro (Humalog*) 0 units SUBCUT [facility]; Protocol Last Admin: 02/02/18 12:47 Dose: 15 units Levothyroxine Sodium (Synthroid Tab*) 200 mcg PO DAILY@0600 [facility] Last Admin: 02/02/18 05:38 Dose: 200 mcg Lisinopril (Prinivil Tab*) 10 mg PO DAILY [facility] Last Admin: 02/02/18 08:57 Dose: 10 mg Mometasone Furoate/Formoterol Fumar (Dulera 200/5 Mdi*) 2 puff INH BID [facility] Last Admin: 02/02/18 07:52 Dose: 2 puff Nitroglycerin (Nitroglycerin 2% Oint*) 1 inch TOPICAL 0800,1400 [facility]; Protocol Last Admin: 02/02/18 12:47 Dose: 1 inch Nystatin (Nystatin Top Powder*) 1 applic TOPICAL TID [facility] Last Admin: 02/02/18 12:47 Dose: 1 note Prednisone (Deltasone Tab*) 60 mg PO DAILY [facility] Last Admin: 02/02/18 08:57 Dose: 60 mg Vital Signs - 8 hr 02/02/18 02/02/18 02/02/18 07:09 07:53 08:00 Temperature 98.2 F Pulse Rate 72 71 Respiratory 22 20 16 Rate Blood Pressure 158/55 (mmHg) O2 Sat by Pulse 100 99 Oximetry 02/02/18 11:14 Temperature 98.2 F Pulse Rate 65 Respiratory 20 Rate Blood Pressure 105/51 (mmHg) O2 Sat by Pulse 99 Oximetry Oxygen Devices in Use Now: None Appearance: Alert, partly up in bed. In good spirits. Looks comfortable. Occ mild cough during my visit. Eyes: No Scleral Icterus Respiratory: Symmetrical Chest Expansion and Respiratory Effort, Clear to Auscultation, Clear to Percussion Cardiovascular: NL Sounds; No Murmurs; No JVD, RRR, No Edema, - Extremities: No Clubbing, Cyanosis, - - Tr edema BL Skin: No Rash or Ulcers, No Nodules or Sclerosis, - Neurological: Alert and Oriented x 3, NL Sensation - Result Diagrams: 02/02/18 06:36 02/02/18 06:36 Microbiology and Other Data: Microbiology 02/01/18 21:18 Influenza Types A,B Antigen - Final Nasal Specimen received for Influenza A/B Molecular testing Assess/Plan/Problems-Billing Assessment: - Patient Problems (1) Pneumonia Current Visit: Yes Status: Acute Code(s): J18.9 - PNEUMONIA, UNSPECIFIED ORGANISM SNOMED Code(s): 765209110 Comment: Not completely certain dx but would treat as such. Change to oral antibiotics on discharge. Continue prednisone taper. D/C benzonatate, little benefit. (2) DM type 2 (diabetes mellitus, type 2) Current Visit: No Status: Chronic Priority: Medium Comment: Start Lantus insulin 02/02. Pt gave herself 2 insulin injections so far, seems confident about this. (3) Morbid exogenous obesity Current Visit: Yes Status: Acute Code(s): E66.01 - MORBID (SEVERE) OBESITY DUE TO EXCESS CALORIES SNOMED Code(s): 835217702 Comment: BMI 45.3 02/02/18. (4) Elevated troponin Current Visit: Yes Status: Acute Code(s): R74.8 - ABNORMAL LEVELS OF OTHER SERUM ENZYMES SNOMED Code(s): 184801748 Comment: Peaked at 0.18. ECG and echo OK, suspect demand ischemia. Consider outpt stress test. (5) S/P complete thyroidectomy Current Visit: No Status: Acute Priority: High Onset Date: 03/22/14 Code (s): E89.0 - POSTPROCEDURAL HYPOTHYROIDISM SNOMED Code(s): 228095536 Comment: Continue levothyroxine. Addon TSH 0.33, would repeat in 2-4 weeks.
[2018-02-02] MEDS ORDERED: Dextrose 50% Syringe 50 ML* 25 GM/50 ML SYRINGE IV PUSH PRN (15:03)
[2018-02-02] MEDS ORDERED: Insulin GLARGINE(*) 1 UNITS UNIT SUBCUT SCH (16:00)
[2018-02-02] MEDS ORDERED: Insulin LISPRO* 1 UNITS UNIT SUBCUT SCH (16:30)
[2018-02-02] MEDS: Benzonatate CAP* 100 MG PO SCH (20:57)
[2018-02-03] MEDS: Levothyroxine TAB* 100 MCG TAB PO SCH (06:13)
[2018-02-03] MEDS: Mometasone/Formoter 200/5 MDI INH SCH (07:48)
[2018-02-03] MEDS: Insulin LISPRO* 1 UNITS UNIT SUBCUT SCH ×2 (07:56→12:35)
[2018-02-03] MEDS: Nitroglycerin 2% OINT* 1 GM PAK TOPICAL SCH ×2 (07:59→14:57)
[2018-02-03] MEDS: Clopidogrel TAB* 75 MG PO SCH (08:03)
[2018-02-03] MEDS: Atorvastatin* 40 MG TAB PO SCH (08:03)
[2018-02-03] MEDS: Aspirin 81 mg CHEW TAB* 81 MG TAB.CHEW PO SCH (08:04)
[2018-02-03] MEDS: Benzonatate CAP* 100 MG PO SCH ×2 (08:05→14:57)
[2018-02-03] MEDS: amLODIPine TAB* 5 MG PO SCH (08:05)
[2018-02-03] MEDS: Atenolol TAB* 50 MG PO SCH (08:05)
[2018-02-03] MEDS: Nystatin TOP POWDER* 15 GM BTL TOPICAL SCH ×2 (08:06→14:58)
[2018-02-03] MEDS: Lisinopril TAB* 10 MG PO SCH (08:07)
[2018-02-03] MEDS: Azithromycin IV(*) 500 MG in NS 0.9% 250 ML* 250 ML IVPB SCH (08:51)
[2018-02-03] MEDS ORDERED: predniSONE TAB* 50 MG PO SCH (09:00)
--- NOTE | 2018-02-03 09:38 | PN ---
Subjective Date of Service: 02/03/18 Interval History: Some non-productive cough, little benefit if any from benzonatate. Walks to [place]. Requests walker. Objective Active Medications: Acetaminophen (Tylenol Tab*) 650 mg PO Q4H PRN PRN Reason: FEVER/PAIN Albuterol (Ventolin 2.5 Mg/3 Ml Neb.Tiffany*) 2.5 mg INH Q2H PRN PRN Reason: SOB/WHEEZING Amlodipine Besylate (Norvasc Tab*) 10 mg PO DAILY [facility] Last Admin: 02/03/18 08:05 Dose: 10 mg Aspirin (Aspirin 81 Mg Chew Tab*) 81 mg PO DAILY [facility] Last Admin: 02/03/18 08:04 Dose: 81 mg Atenolol (Tenormin Tab*) 50 mg PO DAILY [facility] Last Admin: 02/03/18 08:05 Dose: 50 mg Atorvastatin Calcium (Lipitor*) 40 mg PO DAILY [facility] Last Admin: 02/03/18 08:03 Dose: 40 mg Benzonatate (Tessalon Cap*) 200 mg PO TID [facility] Last Admin: 02/03/18 08:05 Dose: 200 mg Clopidogrel Bisulfate (Plavix Tab*) 75 mg PO DAILY [facility] Last Admin: 02/03/18 08:03 Dose: 75 mg Dextrose (D50w Syringe 50 Ml*) 12.5 gm IV PUSH .FOR FS < 60 - SS PRN PRN Reason: FS < 60 Ceftriaxone Sodium 1 gm/ (Sodium Chloride) 50 mls @ 200 mls/hr IVPB Q24H [facility] Last Admin: 02/02/18 11:11 Dose: 200 mls/hr Azithromycin 500 mg/ Sodium (Chloride) 250 mls @ 250 mls/hr IVPB Q24H [facility] Last Admin: 02/03/18 08:51 Dose: 250 mls/hr Insulin Glargine (Lantus(*)) 25 units SUBCUT Q24H [facility] Last Admin: 02/02/18 16:29 Dose: 25 units Insulin Human Lispro (Humalog*) 0 units SUBCUT AC [facility]; Protocol Last Admin: 02/03/18 07:56 Dose: 6 units Levothyroxine Sodium (Synthroid Tab*) 200 mcg PO DAILY@0600 [facility] Last Admin: 02/03/18 06:13 Dose: 200 mcg Lisinopril (Prinivil Tab*) 10 mg PO DAILY [facility] Last Admin: 02/03/18 08:07 Dose: 10 mg Mometasone Furoate/Formoterol Fumar (Dulera 200/5 Mdi*) 2 puff INH BID [facility] Last Admin: 02/03/18 07:48 Dose: 2 puff Nitroglycerin (Nitroglycerin 2% Oint*) 1 inch TOPICAL 0800,1400 [facility]; Protocol Last Admin: 02/03/18 07:59 Dose: 1 inch Nystatin (Nystatin Top Powder*) 1 applic TOPICAL TID [facility] Last Admin: 02/03/18 08:06 Dose: 1 note Prednisone (Deltasone Tab*) 50 mg PO DAILY [facility] Last Admin: 02/03/18 08:04 Dose: 50 mg Vital Signs - 8 hr 02/03/18 02/03/18 02/03/18 03:54 07:29 07:50 Temperature 98.1 F 97.4 F Pulse Rate 56 53 55 Respiratory 20 20 16 Rate Blood Pressure 140/44 161/71 (mmHg) O2 Sat by Pulse 99 100 99 Oximetry 02/03/18 08:00 Temperature Pulse Rate Respiratory 20 Rate Blood Pressure (mmHg) O2 Sat by Pulse Oximetry Oxygen Devices in Use Now: None Appearance: Alert, partly up in bed. In good spirits. Looks comfortable. No cough during my visit. Eyes: No Scleral Icterus Neck: NL Appearance and Movements; NL JVP, No Thyroid Enlargement, Masses Respiratory: Symmetrical Chest Expansion and Respiratory Effort, Clear to Auscultation, Clear to Percussion Cardiovascular: NL Sounds; No Murmurs; No JVD, RRR, No Edema, - Extremities: No Edema, No Clubbing, Cyanosis, - Skin: No Rash or Ulcers, No Nodules or Sclerosis, - Neurological: Alert and Oriented x 3, NL Sensation Result Diagrams: 02/02/18 06:36 02/02/18 06:36 Microbiology and Other Data: Microbiology 02/01/18 21:18 Influenza Types A,B Antigen - Final Nasal Specimen received for Influenza A/B Molecular testing Assess/Plan/Problems-Billing Assessment: - Patient Problems (1) Pneumonia Current Visit: Yes Status: Acute Code(s): J18.9 - PNEUMONIA, UNSPECIFIED ORGANISM SNOMED Code(s): 562257994 Comment: Not completely certain dx but would treat as such. Change to oral antibiotics on discharge. Continue prednisone taper. D/C benzonatate, little benefit. (2) DM type 2 (diabetes mellitus, type 2) Current Visit: No Status: Chronic Priority: Medium Comment: Start Lantus insulin 02/02. Pt gave herself 2 insulin injections so far, seems confident about this. (3) Morbid exogenous obesity Current Visit: Yes Status: Acute Code(s): E66.01 - MORBID (SEVERE) OBESITY DUE TO EXCESS CALORIES SNOMED Code(s): 167381599 Comment: BMI 45.3 02/02/18. (4) Elevated troponin Current Visit: Yes Status: Acute Code(s): R74.8 - ABNORMAL LEVELS OF OTHER SERUM ENZYMES SNOMED Code(s): 987541870 Comment: Peaked at 0.18. ECG and echo OK, suspect demand ischemia. Consider outpt stress test. (5) S/P complete thyroidectomy Current Visit: No Status: Acute Priority: High Onset Date: 03/22/14 Code (s): E89.0 - POSTPROCEDURAL HYPOTHYROIDISM SNOMED Code(s): 132415510 Comment: Continue levothyroxine. Addon TSH 0.33, would repeat in 2-4 weeks. Status and Disposition: Discharge home. Pt to get walker. VNS referral made.
[2018-02-03] MEDS: cefTRIAXone(*) 1 GM in NS 0.9% 50 ML* 50 ML IVPB SCH (10:31)
[2018-02-03 12:06] VITALS: BP 149/61
--- NOTE | 2018-02-03 13:26 | PN ---
Progress Note - Progress Note Date of Service: 02/03/18 Note: Time spent on discharge including exam of patient, discussion with patient, nurse, CM, PT, CM, review of EMR and preparation of medical documents 45 minutes.
--- NOTE | 2018-02-04 01:02 | DS ---
CC: Dr. Busch * DISCHARGE SUMMARY: DATE OF ADMISSION: DATE OF DISCHARGE: 02/03/18 HOSPITAL COURSE: This 72-year-old woman presented with shortness of breath, cough, and malaise. She had a lot of wheezing. She very likely had pneumonia. The chest x-ray did not show this and also, her white blood cell count was normal. Possibly, she had bronchitis and in any event, she was treated with intravenous steroids and antibiotics. She got better. Her white count did go up, but actually after getting steroids, her blood sugar was quite high. She has had a history of diabetes in the past for which she was not on any medication. I think while she is on tapering dose of prednisone, she will need insulin. I would like to have the visiting nurse check her frequently and see if she still needs insulin after the prednisone has gone. I told the patient to only take insulin for [address] then [address] Busch for further instructions. This will be based on her fingerstick readings. The patient was given a walker. The physical therapy tested her. She went up and down 10 steps well. There are landings at her home stairwell and that is all she will need to get into her apartment. FINAL DIAGNOSES: 1. Pneumonia versus bronchitis. 2. Diabetes. 3. Morbid obesity. 4. Elevated troponin likely demand ischemia. 5. Status post complete thyroidectomy. The patient's echocardiogram was unremarkable. The clinical picture was most compatible with demand ischemia. It may be I would leave it up to the primary care doctor to consider whether or not an outpatient stress test would be worthwhile. CONDITION ON DISCHARGE: Improved. DISPOSITION ON DISCHARGE: Discharged home. DISCHARGE MEDICATIONS: 1. Cefuroxime 500 mg b.i.d. for 5 days. 2. Glargine insulin 25 units daily at 5 p.m. for 7 days. 3. Prednisone 10 mg taper from 4 to 0 over 4 days. 4. Lisinopril 10 mg daily. 5. Bumetanide 1 mg daily. 6. Clopidogrel 75 mg daily. 7. Hydrocodone/acetaminophen one 4 times a day p.r.n. 8. Atenolol 50 mg daily. 9. Rosuvastatin 20 mg daily. 10. Budesonide and formoterol 2 puffs b.i.d. 11. Meloxicam 15 mg daily. 12. Levothyroxine 200 mcg daily. 13. Albuterol 2.5 mg by inhalation 4 times a day. 14. Loperamide 2 mg t.i.d. 15. Aspirin 81 mg daily. CONDITION ON DISCHARGE: stable DISPOSITION ON DISCHARGE: discharge home [id number]/[facility] #: [id number] MTDD
== END 2018-02-03 15:00 | disposition home health service (06) | DRG 194 ==
LOC: ED 18:53 → MEDTELE 22:20
PROVIDERS: ADMIT Internal Medicine; ATTEND Internal Medicine
DX: J18.9 Pneumonia, unspecified organism (principal); J44.0 Chronic obstructive pulmonary disease with (acute) lower respiratory infection; Z68.42 Body mass index [BMI] 45.0-49.9, adult; I24.8 Other forms of acute ischemic heart disease; I10 Essential (primary) hypertension; E04.9 Nontoxic goiter, unspecified; K21.9 Gastro-esophageal reflux disease without esophagitis; M19.90 Unspecified osteoarthritis, unspecified site; F32.9 Major depressive disorder, single episode, unspecified; M06.9 Rheumatoid arthritis, unspecified; E89.0 Postprocedural hypothyroidism; E11.40 Type 2 diabetes mellitus with diabetic neuropathy, unspecified; E11.51 Type 2 diabetes mellitus with diabetic peripheral angiopathy without gangrene; E66.01 Morbid (severe) obesity due to excess calories; J40 Bronchitis, not specified as acute or chronic; E78.5 Hyperlipidemia, unspecified; M10.9 Gout, unspecified; Z86.73 Personal history of transient ischemic attack (TIA), and cerebral infarction without residual deficits; Z91.5 Personal history of self-harm; Z98.51 Tubal ligation status; Z88.2 Allergy status to sulfonamides; Z88.8 Allergy status to other drugs, medicaments and biological substances; Z91.040 Latex allergy status; Z90.710 Acquired absence of both cervix and uterus; Z90.49 Acquired absence of other specified parts of digestive tract; Z82.49 Family history of ischemic heart disease and other diseases of the circulatory system; Z87.891 Personal history of nicotine dependence; Z79.02 Long term (current) use of antithrombotics/antiplatelets; Z79.82 Long term (current) use of aspirin; Z79.4 Long term (current) use of insulin
CPT/HCPCS: 36415; 70450; 71045; 80048; 80053; 83605; 83880; 84443; 84484; 85025; 85610; 85730; 86140; 87040; 93005; 93306; 94640; 99284; A9270-GY; G8978-GP-CI; G8979-GP-CI; G8980-GP-CI; J0360; J0456; J0696; J2930; J3475; J7512

== ENCOUNTER 2018-04-15 16:20 | Inpatient (IN) | payer MEDICARE, MEDICAID ==
--- NOTE | 2018-04-15 16:56 | ED ---
Shortness of Breath - HPI Summary HPI Summary: 73 year old F brought in by EMS to [facility] with a chief complaint of increasing shortness of breath since last night. The patient rates the pain 0/10 in severity. Symptoms aggravated by nothing. Symptoms alleviated by nothing. Patient reports cough, right-sided chest pain radiating to her back, and insomnia. Patient was hospitalized on 04/09/18. She was discharged home with Prednisone and antibiotics. She is still taking these. Patient has nebulizer at home but cannot find it. - History of Current Complaint Chief Complaint: EDShortnessOfBreath Time Seen by Provider: 04/15/18 16:48 Hx Obtained From: Patient Onset/Duration: Lasting Days - last night, Still Present Timing: Constant Current Severity: None Aggrevating Factors: Nothing Alleviating Factors: Nothing - Allergy/Home Medications Allergies/Adverse Reactions: Allergies Allergy/AdvReac Type Severity Reaction Status Date / Time Adhesive Tape Allergy Rash Verified 11/18/17 17:08 codeine Allergy Hives Verified 11/18/17 17:08 latex Allergy Hives Verified 11/18/17 17:08 Sulfa (Sulfonamide Allergy Hives Verified 11/18/17 17:08 Antibiotics) Home Medications: Home Medications HYDROcodone/ACETAM 10-325 MG(N 1 tab PO QID PRN 04/15/18 [History Confirmed ] glipiZIDE TAB.XL* [Glucotrol XL*] 5 mg PO DAILY 04/15/18 [History Confirmed ] PMH/Surg Hx/FS Hx/Imm Hx Previously Healthy: No Endocrine/Hematology History: Reports: Hx Diabetes - TYPE II- NO MEDICATION FOR - DIET CONTROLLED PER PATIENT, Hx Thyroid Disease - GOITERS Denies: Hx Anticoagulant Therapy Cardiovascular History: Reports: Hx Hypercholesterolemia, Hx Hypertension - ON MEDICATION FOR Denies: Hx Congestive Heart Failure, Hx Pacemaker/ICD Respiratory History: Reports: Hx Asthma, Hx Chronic Obstructive Pulmonary Disease (COPD) Denies: Hx Sleep Apnea GI History: Reports: Hx Gastroesophageal Reflux Disease, Other GI Disorders - ESOPHAGUS "WEAK"-DIFF SWALLOWING PILLS AT TIMES History: Reports: Hx Kidney Infection, Other Problems/Disorders - KIDNEY INFECTIONS Denies: Hx Renal Disease Musculoskeletal History: Reports: Hx Arthritis, Hx Rheumatoid Arthritis, Hx Gout , Other Musculoskeletal History - ARTHRITIS Sensory History: Reports: Hx Contacts or Glasses - reading Denies: Hx Hearing Aid Opthamlomology History: Reports: Hx Contacts or Glasses - reading Neurological History: Reports: Hx Headaches - ONCE IN A WHILE, Hx Seizures - A CHILD, Hx Transient Ischemic Attacks (TIA) Denies: Hx Dementia Psychiatric History: Reports: Hx Depression, Hx Suicide Attempt - in the past- 1980, Hx Substance Abuse - in the past - Surgical History Surgery Procedure, Year, and Place: TONSILECTOMY. [place]OM[place] [place]. CHOLECYSTECTOMY-[facility]. PARTIAL THYROIDECTOMY LEFT- [facility] Hx Anesthesia Reactions: No - Immunization History Date of Tetanus Vaccine: UNKNOWN Date of Influenza Vaccine: 11/2017 Immunizations Up to Date: Yes Infectious Disease History: No Infectious Disease History: Denies: Hx Hepatitis, Hx Human Immunodeficiency Virus (HIV), Traveled Outside the [place] in Last 30 Days - Family History Known Family History: Positive: Cardiac Disease - AAA - Social History Alcohol Use: Rare Alcohol Amount: former ETOH user Hx Substance Use: No Substance Use Type: Reports: None Hx Tobacco Use: Yes - quit 1985 Smoking Status (MU): Former Smoker Type: Cigarettes Amount Used/How Often: 2 PPD X 23 YEARS Have You Smoked in the Last Year: No Review of Systems Positive: Chest Pain Positive: Shortness Of Breath, Cough Positive: Other - insomnia All Other Systems Reviewed And Are Negative: Yes Physical Exam - Summary Physical Exam Summary: Appearance: The patient is well-nourished in no acute distress and in no acute pain. Skin: The skin is warm and dry and skin color reflects adequate perfusion. HEENT: The head is normocephalic and atraumatic. The pupils are equal and reactive. The conjunctivae are clear and without drainage. Nares are patent and without drainage. Mouth reveals moist mucous membranes and the throat is without erythema and exudate. The external ears are intact. The ear canals are patent and without drainage. The tympanic membranes are intact. Neck: The neck is supple with full range of motion and non-tender. There are no carotid bruits. There is no neck vein distension. Respiratory: Patient has diffuse expiratory wheezes Cardiovascular: Heart is regular rate and rhythm. There is no murmur or rub auscultated. There is no peripheral edema and pulses are symmetrical and equal. Abdomen: The abdomen is soft and non-tender. There are normal bowel sounds heard in all four quadrants and there is no organomegaly palpated. Musculoskeletal: There is no back tenderness noted. Extremities are non-tender with full range of motion. There is good capillary refill. There is no peripheral edema or calf tenderness elicited. Neurological: Patient is alert and oriented to person, place and time. The patient has symmetrical motor strength in all four extremities. Cranial nerves are grossly intact. Deep tendon reflexes are symmetrical and equal in all four extremities. Psychiatric: The patient has an appropriate affect and does not exhibit any anxiety or depression Triage Information Reviewed: Yes Vital Signs On Initial Exam: Initial Vitals Temp Pulse Resp BP Pulse Ox 97.7 F 59 24 221/122 94 04/15/18 16:33 04/15/18 16:33 04/15/18 16:33 04/15/18 16:33 04/15/18 16:33 Vital Signs Reviewed: Yes Diagnostics - Vital Signs Vital Signs Temp Pulse Resp BP Pulse Ox 04/15/18 16:33 97.7 F 59 24 221/122 94 - Laboratory Result Diagrams: 04/15/18 17:15 04/15/18 17:15 Lab Statement: Any lab studies that have been ordered have been reviewed, and results considered in the medical decision making process. - Radiology CXR Radiology Interpretation Completed By: Radiologist Summary of Radiographic Findings: 1. Stigmata of obstructive lung disease. No acute pulmonary or cardiac process evident. ED physician has reviewed this report. - EKG 1714 Cardiac Rate: Bradycardia - 57 BPM EKG Rhythm: Sinus Bradycardia Course/Dx - Course Course Of Treatment: Ms. Juarez was in the hospital in January for pneumonia. She went home and was doing okay until in the last few days when she is began to develop a cough and shortness of breath. This exacerbated by the fact that she cannot find her nebulizer machine. She was nontoxic in appearance but obviously short of breath on arrival with diffuse wheezing and drop her pulse ox with any activity. Chest x-ray was clear and her influenza A was positive. She got some nebulizers and some Solu-Medrol here but continued to be marginal. I consult the hospitalist for further evaluation and admission. - Diagnoses Provider Diagnoses: Influenza, Respiratory insufficiency - Physician Notifications Discussed Care of Patient With: Nick Galindo Time Discussed With Above Provider: 18:26 Instructed by Provider To: Other - Dr. Galindo, hospitalist, agrees to admit patient - Critical Care Time Critical Care Time: 30-74 min Discharge - Sign-Out/Discharge Documenting (check all that apply): Patient Departure - Admit Patient Received Moderate/Deep Sedation with Procedure: No - Discharge Plan Condition: Fair Disposition: ADMITTED TO [facility] - Billing Disposition and Condition Condition: FAIR Disposition: Admitted to [facility] - Attestation Statements Document Initiated by Rafalibe: Yes Documenting Scribe: Maddi Delcid Provider For Whom Evan is Documenting (Include Credential): Ezekiel Coulter MD Scribe Attestation: Maddi Torres, scribed for Ezekiel Coutler MD on 04/15/18 at 2113. Scribe Documentation Reviewed: Yes Provider Attestation: The documentation as recorded by the Maddi maciel accurately reflects the service I personally performed and the decisions made by , Ezekiel Coulter MD Status of Scribe Document: Viewed
[2018-04-15 17:51] LABS: ABS Basophils 0 10^3/ul (0-0.2); ABS Eosinophils 0 10^3/ul (0-0.6); ABS Lymphocytes 1.4 10^3/ul (1.0-4.8); ABS Monocytes 0.3 10^3/ul (0-0.8); ABS Neutrophils 7.7 10^3/ul (1.5-7.7); ABS Nucleated RBC 0 10^3/ul; Eosinophil % 0.1 %; Hematocrit 33 % (35-47); Hemoglobin 10.2 g/dl (12.0-16.0); Lymphocyte % 14.5 %; Mean Corpuscular HGB Conc 31 g/dl (31-36); Mean Corpuscular Hemoglobin 24 pg (27-31); Mean Corpuscular Volume 77 fL (80-97); Mean Platelet Volume 9.1 fL (7.4-10.4); Nucleated Red Blood Cells % 0; Platelet Count 205 10^3/ul (150-450); Red Blood Count 4.31 10^6/ul (4.00-5.40); Red Cell Distribution Width 24 % (10.5-15); White Blood Count 9.4 10^3/ul (3.5-10.8)
[2018-04-15 17:58] LABS: INR 0.98 (0.77-1.02)
[2018-04-15 17:59] LABS: Influenza A Molecular POSITIVE (Negative)
[2018-04-15 18:02] LABS: Albumin 3.8 g/dL (3.2-5.2); Albumin/Globulin Ratio 1.4 (1-3); BUN/Creatinine Ratio 40.8 (8-20); C Reactive Protein 3.31 mg/L (<8.01); Calcium 10.6 mg/dL (8.6-10.3); EGFR Non-African American 74.4 (>60); Globulin 2.8 g/dL (2-4); Potassium 4.7 mmol/L (3.5-5.0); Total Bilirubin 0.2 mg/dL (0.2-1.0); Total Protein 6.6 g/dL (6.4-8.9)
[2018-04-15] MEDS ORDERED: Oseltamivir CAP* 75 MG CAP PO ONE (18:26)
[2018-04-15] MEDS ORDERED: Hydrocodone/Acetamin 10/325 1 TAB PO PRN (18:39)
--- NOTE | 2018-04-15 18:53 | ADMNOTE ---
Subjective Date of Service: 04/15/18 Interval History: ADMISSION HISTORY AND PHYSICAL EXAM: Allergies Allergy/AdvReac Type Severity Reaction Status Date / Time Adhesive Tape Allergy Rash Verified 11/18/17 17:08 codeine Allergy Hives Verified 11/18/17 17:08 latex Allergy Hives Verified 11/18/17 17:08 Sulfa (Sulfonamide Allergy Hives Verified 11/18/17 17:08 Antibiotics) Home Medications Medication Instructions Recorded Confirmed Type Bumetanide TAB* [Bumex 1 MG TAB*] 1 mg PO DAILY 11/29/11 04/15/18 History Clopidogrel TAB* [Plavix TAB*] 75 mg PO DAILY 11/29/11 04/15/18 History Atenolol TAB* [Tenormin TAB* 25 MG] 50 mg PO DAILY 03/15/14 04/15/18 History Albuterol 2.5MG/3ML (0.083%)* 2.5 mg INH QID 06/25/15 04/15/18 History [Ventolin 2.5 MG/3 ML NEB.JANIE*] Levothyroxine TAB* [Synthroid TAB*] 200 mcg PO DAILY 06/25/15 04/15/18 History Aspirin 81 mg CHEW TAB* 81 mg PO DAILY 02/01/18 04/15/18 History Insulin Glargine,Hum.rec.anlog 25 units SUBCUT DAILY #1 box 02/03/18 04/15/18 Rx [Lantus Solostar 5x3 ML PENS] DOXYcycline CAP(*) [DOXYcycline 100 mg PO BID #20 cap 04/11/18 04/15/18 Rx 100MG CAP(*)] predniSONE [Prednisone 20 MG TAB] 40 mg PO DAILY 5 Days #10 tablet 04/11/18 Rx HYDROcodone/ACETAM 10-325 MG(N 1 tab PO QID PRN 04/15/18 04/15/18 History glipiZIDE TAB.XL* [Glucotrol XL*] 5 mg PO DAILY 04/15/18 04/15/18 History HPI: The patient has had increased SOB, some dry cough for several days. She was in the ER 04/12 and was prescribed prednisone 40 mg daily and doxycycline 100 mg bid. She took these meds but was no better. She states she hasn't seen her nebulizer since 01/2018. Family History: Findings - Mother of ruptured AAA. Father of [place]. Social History: Findings - Former smoker. No alcohol abuse. Lives alone. Her 2 oldest sons are her SDM's. Past Medical History: Findings - DM, HT, HL,COPD, PAD, Hypothyroid,tonsillectomy , hysterectomy, choleycstectomy,thyroidectomy, tubal ligation Review of Systems - Measurements Intake and Output: Intake and Output Last 24 Hours 04/13/18 04/14/18 04/15/18 04/16/18 06:59 06:59 06:59 06:59 Weight 256 lb - Review of Systems Constitutional Symptoms: Negative: Weight Gain, Weight Loss, Weakness, Fatigue, Fever, Night Sweats, Unexplained Falls, Other Dermatology: Positive: Normal HEENT: Positive: Normal Eyes: Positive: Normal Thyroid: Positive: Primary Hypothyroidism Pulmonary: Positive: Cough, Shortness of Breath, COPD Cardiology: Positive: Normal Gastroenterology: Positive: Abdominal Pain - LLQ pain today, worse with cough Genital - Urinary: Positive: Normal Musculoskeletal: Positive: Joint Pain Endocrinology: Positive: Thyroid Problems, Diabetes Mellitus Hematologic/Lymphatic: Positive: Anemia Neurology: Positive: Normal Psychiatry: Positive: Normal Allergic/Immunologic: Negative: Hx Anaphylaxis, Hx Angioedema, Hx Environmental, Hx Seasonal, Athsma, Hx HIV, Immunocompromise, Swollen Glands LymphNodes, Other Objective Active Medications: Hydrocodone Bitart/Acetaminophen (Hydrocodone/Acetam 10-325 Mg(N) 1 tab PO QID PRN PRN Reason: PAIN Albuterol (Ventolin 2.5 Mg/3 Ml Neb.Janie*) 2.5 mg INH QID [facility] Aspirin (Aspirin 81 Mg Chew Tab*) 81 mg PO DAILY [facility] Atenolol (Tenormin Tab*) 50 mg PO DAILY [facility] Clopidogrel Bisulfate (Plavix Tab*) 75 mg PO DAILY [facility] Doxycycline Hyclate (Vibramycin Cap(*)) 100 mg PO BID [facility] Enoxaparin Sodium (Lovenox(*)) 40 mg SUBCUT Q24H [facility] Glipizide (Glucotrol Xl*) 5 mg PO DAILY [facility] Levothyroxine Sodium (Synthroid Tab*) 200 mcg PO DAILY [facility] Non-Formulary Medication (Bumetanide Tab*) 1 mg PO DAILY [facility] Non-Formulary Medication (Insulin Glargine,Hum.Rec.Anlog [Lantus Solostar 5x3 Ml Pens]) 25 units SUBCUT DAILY [facility] Prednisone (Deltasone Tab*) 30 mg PO DAILY [facility] Vital Signs - 8 hr 04/15/18 04/15/18 04/15/18 16:32 16:33 16:46 Temperature 97.7 F Pulse Rate 56 59 58 Respiratory 19 24 24 Rate Blood Pressure 221/122 221/122 205/62 (mmHg) O2 Sat by Pulse 92 94 94 Oximetry 04/15/18 04/15/18 17:01 18:00 Temperature Pulse Rate 56 52 Respiratory 23 19 Rate Blood Pressure 189/60 (mmHg) O2 Sat by Pulse 92 93 Oximetry Oxygen Devices in Use Now: Nasal Cannula Appearance: Alert, sitting up on ED stretcher. Occ dry cough, otherwise looks comfortable. In fair spirits. Eyes: No Scleral Icterus Ears/Nose/Mouth/Throat: Clear Oropharnyx, Mucous Membranes Moist Neck: NL Appearance and Movements; NL JVP, No Thyroid Enlargement, Masses Respiratory: Symmetrical Chest Expansion and Respiratory Effort, Clear to Percussion, - - mild scattered rhonchi BL Cardiovascular: NL Sounds; No Murmurs; No JVD, RRR, No Edema, - Abdominal: No Hepatosplenomegaly, - - soft, obese. Mild L abd tenderness. Nl BS Extremities: No Edema, No Clubbing, Cyanosis, - Skin: No Rash or Ulcers, No Nodules or Sclerosis, - Neurological: Alert and Oriented x 3, NL Sensation Result Diagrams: 04/15/18 17:15 04/15/18 17:15 Microbiology and Other Data: Microbiology 04/15/18 17:36 Influenza Types A,B Antigen - Final Nasal Specimen received for Influenza A/B Molecular testing Assess/Plan/Problems-Billing Assessment: - Patient Problems (1) Influenza A Current Visit: Yes Status: Acute Code(s): J10.1 - FLU DUE TO OTH IDENT INFLUENZA VIRUS W OTH RESP MANIFEST SNOMED Code(s): 130166846 (2) COPD (chronic obstructive pulmonary disease) Current Visit: Yes Status: Acute Code(s): J44.9 - CHRONIC OBSTRUCTIVE PULMONARY DISEASE, UNSPECIFIED SNOMED Code(s): 56707172 Comment: Start to taper prednisone 04/16 as not wheezing in ED. Complete doxycycline course started 04/12 in ED. (3) DM type 2 (diabetes mellitus, type 2) Current Visit: No Status: Chronic Priority: Medium Comment: Continue glipizide. Lispro by SS achs. (4) S/P complete thyroidectomy Current Visit: No Status: Acute Priority: High Onset Date: 03/22/14 Code (s): E89.0 - POSTPROCEDURAL HYPOTHYROIDISM SNOMED Code(s): 683559973 Comment: Continue levothyroxine. Addon TSH 0.33 02/09, repeat addon requested. (5) Morbid exogenous obesity Current Visit: No Status: Acute Code(s): E66.01 - MORBID (SEVERE) OBESITY DUE TO EXCESS CALORIES SNOMED Code(s): 843490293 Comment: BMI 44.3 04/15/18. (6) Anemia Current Visit: Yes Status: Acute Code(s): D64.9 - ANEMIA, UNSPECIFIED SNOMED Code(s): 820498381 Comment: Chronic, stable. Needs outpt fup.
[2018-04-15] MEDS ORDERED: Dextrose 50% Syringe 50 ML* 25 GM/50 ML SYRINGE IV PUSH PRN (20:49)
[2018-04-15] MEDS: amLODIPine TAB* 5 MG PO SCH (21:27)
[2018-04-15] MEDS: DOXYcycline CAP(*) 100 MG PO SCH (21:27)
[2018-04-15] MEDS: Enoxaparin(*) 40 MG/0.4 ML SYR SUBCUT SCH (21:27)
[2018-04-15] MEDS: Insulin LISPRO* 1 UNITS UNIT SUBCUT SCH (21:59)
[2018-04-15] MEDS: hydrALAZINE IV* 20 MG/ML VIAL IV SLOW PU PRN (22:07)
[2018-04-15] MEDS: Nystatin CREAM* 15 GM TUBE TOPICAL SCH (22:10)
[2018-04-15] MEDS: Mometasone/Formoter 200/5 MDI INH SCH (23:02)
[2018-04-15] MEDS: Albuterol 2.5 MG/3 ML NEB.SOL* (0.083%) INH SCH (23:02)
[2018-04-16] MEDS: Levothyroxine TAB* 100 MCG TAB PO SCH (05:40)
[2018-04-16] MEDS ORDERED: Dextrose 50% Syringe 50 ML* 25 GM/50 ML SYRINGE IV PUSH PRN (06:42)
[2018-04-16] MEDS: Mometasone/Formoter 200/5 MDI INH SCH ×2 (07:17→19:15)
[2018-04-16] MEDS: Albuterol 2.5 MG/3 ML NEB.SOL* (0.083%) INH SCH (07:17)
[2018-04-16] MEDS ORDERED: Albuterol 2.5 MG/3 ML NEB.SOL* (0.083%) INH PRN (07:25)
[2018-04-16] MEDS ORDERED: predniSONE TAB* 20 MG PO SCH (09:00)
[2018-04-16] MEDS: Insulin LISPRO* 1 UNITS UNIT SUBCUT SCH ×5 (09:00→21:17)
[2018-04-16] MEDS ORDERED: Insulin GLARGINE(*) 1 UNITS UNIT SUBCUT SCH (09:00)
[2018-04-16] MEDS ORDERED: Insulin GLARGINE(*) 1 UNITS UNIT ONE (09:03)
[2018-04-16] MEDS: Insulin GLARGINE(*) 1 UNITS UNIT SUBCUT SCH (09:08)
[2018-04-16] MEDS: Clopidogrel TAB* 75 MG PO SCH (09:10)
[2018-04-16] MEDS: DOXYcycline CAP(*) 100 MG PO SCH ×2 (09:10→21:17)
[2018-04-16] MEDS: Atenolol TAB* 50 MG PO SCH (09:10)
[2018-04-16] MEDS: Oseltamivir CAP* 75 MG CAP PO SCH ×2 (09:10→21:17)
[2018-04-16] MEDS: Aspirin 81 mg CHEW TAB* 81 MG TAB.CHEW PO SCH (09:10)
[2018-04-16] MEDS: glipiZIDE TAB.XL* 5 MG PO SCH (09:10)
[2018-04-16] MEDS: Bumetanide TAB* 1 MG PO SCH (09:14)
[2018-04-16] MEDS: Nystatin CREAM* 15 GM TUBE TOPICAL SCH ×3 (09:15→21:19)
--- NOTE | 2018-04-16 14:33 | PN ---
Subjective Date of Service: 04/16/18 Interval History: Somewhat better, still feels weak. Family History: Findings - Mother of ruptured AAA. Father of [place]. Social History: Findings - Former smoker. No alcohol abuse. Lives alone. Her 2 oldest sons are her SDM's. Past Medical History: Findings - DM, HT, HL,COPD, PAD, Hypothyroid,tonsillectomy , hysterectomy, choleycstectomy,thyroidectomy, tubal ligation Objective Active Medications: Hydrocodone Bitart/Acetaminophen ([place] 10/325 (Nf)) 1 tab PO QID PRN PRN Reason: PAIN Albuterol (Ventolin 2.5 Mg/3 Ml Neb.Tiffany*) 2.5 mg INH [id number] AWAKE PRN PRN Reason: SOB/WHEEZING Amlodipine Besylate (Norvasc Tab*) 5 mg PO BEDTIME [facility] Last Admin: 04/15/18 21:27 Dose: 5 mg Aspirin (Aspirin 81 Mg Chew Tab*) 81 mg PO DAILY [facility] Last Admin: 04/16/18 09:10 Dose: 81 mg Atenolol (Tenormin Tab*) 50 mg PO DAILY [facility] Last Admin: 04/16/18 09:10 Dose: 50 mg Bumetanide (Bumex Tab*) 1 mg PO DAILY [facility] Last Admin: 04/16/18 09:14 Dose: 1 mg Clopidogrel Bisulfate (Plavix Tab*) 75 mg PO DAILY [facility] Last Admin: 04/16/18 09:10 Dose: 75 mg Dextrose (D50w Syringe 50 Ml*) 12.5 gm IV PUSH .FOR FS < 60 - SS PRN PRN Reason: FS < 60 Doxycycline Hyclate (Vibramycin Cap(*)) 100 mg PO BID [facility] Last Admin: 04/16/18 09:10 Dose: 100 mg Enoxaparin Sodium (Lovenox(*)) 40 mg SUBCUT Q24H [facility] Last Admin: 04/15/18 21:27 Dose: 40 mg Glipizide (Glucotrol Xl*) 5 mg PO DAILY [facility] Last Admin: 04/16/18 09:10 Dose: 5 mg Hydralazine HCl (Apresoline Iv*) 5 mg IV SLOW PU Q6H PRN PRN Reason: SBP>180 Last Admin: 04/15/18 22:07 Dose: 5 mg Insulin Glargine (Lantus(*)) 20 units SUBCUT DAILY [facility] Last Admin: 04/16/18 09:08 Dose: 20 units Insulin Human Lispro (Humalog*) 0 units SUBCUT ACHS [facility]; Protocol Last Admin: 04/16/18 13:19 Dose: 9 units Levothyroxine Sodium (Synthroid Tab*) 200 mcg PO 0600 [facility] Last Admin: 04/16/18 05:40 Dose: 200 mcg Mometasone Furoate/Formoterol Fumar (Dulera 200/5 Mdi*) 2 puff INH BID [facility] Last Admin: 04/16/18 07:17 Dose: 2 puff Nystatin (Nystatin Cream*) 1 applic TOPICAL TID [facility] Last Admin: 04/16/18 13:20 Dose: 1 applic Oseltamivir Phosphate (Tamiflu Cap*) 75 mg PO BID [facility] Last Admin: 04/16/18 09:10 Dose: 75 mg Prednisone (Deltasone Tab*) 30 mg PO DAILY [facility] Last Admin: 04/16/18 09:09 Dose: 30 mg Vital Signs - 8 hr 04/16/18 07:29 Pulse Rate 54 Respiratory 18 Rate O2 Sat by Pulse 100 Oximetry Oxygen Devices in Use Now: None Appearance: Alert, partly up in bed. In fair spirits. Looks comfortable, occ mild cough. Respiratory: Symmetrical Chest Expansion and Respiratory Effort, Clear to Auscultation, Clear to Percussion Cardiovascular: NL Sounds; No Murmurs; No JVD, RRR, No Edema, - Extremities: No Edema, No Clubbing, Cyanosis, - Skin: No Rash or Ulcers, No Nodules or Sclerosis, - Neurological: Alert and Oriented x 3, NL Sensation Result Diagrams: 04/15/18 17:15 04/15/18 17:15 Microbiology and Other Data: Microbiology 04/15/18 17:36 Influenza Types A,B Antigen - Final Nasal Specimen received for Influenza A/B Molecular testing Assess/Plan/Problems-Billing Assessment: - Patient Problems (1) Influenza A Current Visit: Yes Status: Acute Code(s): J10.1 - FLU DUE TO OTH IDENT INFLUENZA VIRUS W OTH RESP MANIFEST SNOMED Code(s): 790089373 (2) COPD (chronic obstructive pulmonary disease) Current Visit: Yes Status: Acute Code(s): J44.9 - CHRONIC OBSTRUCTIVE PULMONARY DISEASE, UNSPECIFIED SNOMED Code(s): 32522892 Comment: Continue to taper prednisone. Complete doxycycline course started in ED. (3) DM type 2 (diabetes mellitus, type 2) Current Visit: No Status: Chronic Priority: Medium Comment: Continue glipizide. Lispro by SS achs. Adequate glycemic control 04/17, should improve as prednisone tapered. (4) S/P complete thyroidectomy Current Visit: No Status: Acute Priority: High Onset Date: 03/22/14 Code (s): E89.0 - POSTPROCEDURAL HYPOTHYROIDISM SNOMED Code(s): 215615433 Comment: Continue levothyroxine. Addon TSH 0.33 02/09, repeat 1.00 on . (5) Morbid exogenous obesity Current Visit: No Status: Acute Code(s): E66.01 - MORBID (SEVERE) OBESITY DUE TO EXCESS CALORIES SNOMED Code(s): 154004635 Comment: BMI 44.3 04/15/18. (6) Anemia Current Visit: Yes Status: Acute Code(s): D64.9 - ANEMIA, UNSPECIFIED SNOMED Code(s): 391764496 Comment: Chronic, stable. Needs outpt fup.
[2018-04-16] MEDS: amLODIPine TAB* 5 MG PO SCH (21:17)
[2018-04-16] MEDS: Enoxaparin(*) 40 MG/0.4 ML SYR SUBCUT SCH (21:17)
[2018-04-17] MEDS: Levothyroxine TAB* 100 MCG TAB PO SCH (06:08)
[2018-04-17] MEDS: Mometasone/Formoter 200/5 MDI INH SCH ×2 (08:08→19:19)
[2018-04-17] MEDS: Insulin LISPRO* 1 UNITS UNIT SUBCUT SCH ×4 (08:35→20:55)
[2018-04-17] MEDS: Insulin GLARGINE(*) 1 UNITS UNIT SUBCUT SCH (09:13)
[2018-04-17] MEDS: Bumetanide TAB* 1 MG PO SCH (09:14)
[2018-04-17] MEDS: Clopidogrel TAB* 75 MG PO SCH (09:14)
[2018-04-17] MEDS: DOXYcycline CAP(*) 100 MG PO SCH ×2 (09:14→20:53)
[2018-04-17] MEDS: hydrALAZINE IV* 20 MG/ML VIAL IV SLOW PU PRN (09:14)
[2018-04-17] MEDS: glipiZIDE TAB.XL* 5 MG PO SCH (09:14)
[2018-04-17] MEDS: Aspirin 81 mg CHEW TAB* 81 MG TAB.CHEW PO SCH (09:15)
[2018-04-17] MEDS: Oseltamivir CAP* 75 MG CAP PO SCH ×2 (09:15→20:54)
[2018-04-17] MEDS: predniSONE TAB* 20 MG PO SCH (09:15)
[2018-04-17] MEDS: Nystatin CREAM* 15 GM TUBE TOPICAL SCH ×3 (09:15→23:02)
[2018-04-17] MEDS: Atenolol TAB* 50 MG PO SCH (09:15)
--- NOTE | 2018-04-17 12:32 | PN ---
Subjective Date of Service: 04/17/18 Interval History: HOSPITALIST PROGRESS NOTE Patient seen and examined at bedside. Care reviewed and d/w Willa Crabtree RN. She feels a little better today. Dyspnea and cough are improving. Feels weak. Family History: Unchanged from Admission Social History: Unchanged from Admission Past Medical History: Unchanged from Admission Objective Active Medications: Hydrocodone Bitart/Acetaminophen ([place] 10/325 (Nf)) 1 tab PO QID PRN PRN Reason: PAIN Albuterol (Ventolin 2.5 Mg/3 Ml Neb.Tiffany*) 2.5 mg INH [id number] AWAKE PRN PRN Reason: SOB/WHEEZING Amlodipine Besylate (Norvasc Tab*) 5 mg PO BEDTIME [facility] Last Admin: 04/16/18 21:17 Dose: 5 mg Aspirin (Aspirin 81 Mg Chew Tab*) 81 mg PO DAILY [facility] Last Admin: 04/17/18 09:15 Dose: 81 mg Atenolol (Tenormin Tab*) 50 mg PO DAILY [facility] Last Admin: 04/17/18 09:15 Dose: 50 mg Bumetanide (Bumex Tab*) 1 mg PO DAILY [facility] Last Admin: 04/17/18 09:14 Dose: 1 mg Clopidogrel Bisulfate (Plavix Tab*) 75 mg PO DAILY [facility] Last Admin: 04/17/18 09:14 Dose: 75 mg Dextrose (D50w Syringe 50 Ml*) 12.5 gm IV PUSH .FOR FS < 60 - SS PRN PRN Reason: FS < 60 Doxycycline Hyclate (Vibramycin Cap(*)) 100 mg PO BID [facility] Last Admin: 04/17/18 09:14 Dose: 100 mg Enoxaparin Sodium (Lovenox(*)) 40 mg SUBCUT Q24H [facility] Last Admin: 04/16/18 21:17 Dose: 40 mg Glipizide (Glucotrol Xl*) 5 mg PO DAILY [facility] Last Admin: 04/17/18 09:14 Dose: 5 mg Hydralazine HCl (Apresoline Iv*) 5 mg IV SLOW PU Q6H PRN PRN Reason: SBP>180 Last Admin: 04/17/18 09:14 Dose: 5 mg Insulin Glargine (Lantus(*)) 20 units SUBCUT DAILY [facility] Last Admin: 04/17/18 09:13 Dose: 20 units Insulin Human Lispro (Humalog*) 0 units SUBCUT ACHS [facility]; Protocol Last Admin: 04/17/18 12:21 Dose: Not Given Levothyroxine Sodium (Synthroid Tab*) 200 mcg PO 0600 [facility] Last Admin: 04/17/18 06:08 Dose: 200 mcg Mometasone Furoate/Formoterol Fumar (Dulera 200/5 Mdi*) 2 puff INH BID [facility] Last Admin: 04/17/18 08:08 Dose: 2 puff Nystatin (Nystatin Cream*) 1 applic TOPICAL TID [facility] Last Admin: 04/17/18 09:15 Dose: 1 applic Oseltamivir Phosphate (Tamiflu Cap*) 75 mg PO BID [facility] Last Admin: 04/17/18 09:15 Dose: 75 mg Prednisone (Deltasone Tab*) 20 mg PO DAILY [facility] Last Admin: 04/17/18 09:15 Dose: 20 mg Vital Signs - 8 hr 04/17/18 04/17/18 04/17/18 08:04 08:35 09:31 Temperature 97.9 F Pulse Rate 49 72 Respiratory 18 17 Rate Blood Pressure 185/55 182/52 162/60 (mmHg) O2 Sat by Pulse 97 Oximetry 04/17/18 04/17/18 12:10 12:17 Temperature 98.3 F Pulse Rate 52 Respiratory 18 Rate Blood Pressure 93/54 150/50 (mmHg) O2 Sat by Pulse 97 Oximetry Oxygen Devices in Use Now: None Appearance: Morbid obese elderly lady lying in bed in [facility]. Eyes: No Scleral Icterus Ears/Nose/Mouth/Throat: Mucous Membranes Moist Neck: Trachea Midline Respiratory: Symmetrical Chest Expansion and Respiratory Effort, - - BS+ bilaterally diminished with no added sounds Cardiovascular: RRR - Normal S1 and S2 Neurological: Alert and Oriented x 3, NL Muscle Strength and Tone Result Diagrams: 04/15/18 17:15 04/15/18 17:15 Assess/Plan/Problems-Billing Assessment: Mrs Juarez is a 73yo F with PMH of morbid obesity with BMI 44, HTN, HLD, DM, COPD , hypothyroidism who presented to ED with c/o increased dyspnea and dry cough, found to have COPD exacerbation secondary to Influenza. - Patient Problems (1) COPD exacerbation Comment: - Secondary to Influenza. - Improving. - Continue prednisone and bronchodilators. (2) Influenza Comment: - Continue Tamiflu. (3) HTN (hypertension) Comment: - Uncontrolled. - Increase Amldipine, continue Atenolol. - Hydralazine IV PRN. (4) Diabetes Comment: - Continue glipizide, Lantus, and Lispro SS. (5) DVT prophylaxis Comment: - Lovenox. (6) Full code status Status and Disposition: OBV. There is concern with patient's living situation. States she sometimes has to crawl to get to her 3rd floor apartment. Also concerns re: personal hygiene as she cannot reach certain areas of her body. CM to assist with discharge plan.
[2018-04-17] MEDS ORDERED: amLODIPine TAB* 5 MG PO ONE (12:35)
[2018-04-17] MEDS: amLODIPine TAB* 5 MG PO SCH (20:54)
[2018-04-17] MEDS: Enoxaparin(*) 40 MG/0.4 ML SYR SUBCUT SCH (20:55)
[2018-04-18] MEDS: Levothyroxine TAB* 100 MCG TAB PO SCH (05:34)
[2018-04-18] MEDS: Mometasone/Formoter 200/5 MDI INH SCH ×2 (08:18→19:59)
--- NOTE | 2018-04-18 09:24 | PN ---
Subjective Date of Service: 04/18/18 Interval History: HOSPITALIST PROGRESS NOTE Patient seen and examined at bedside. Care reviewed and d/w Bradly Rossi RN. She feels a little better today. Dyspnea is less intense. Family History: Unchanged from Admission Social History: Unchanged from Admission Past Medical History: Unchanged from Admission Objective Active Medications: Hydrocodone Bitart/Acetaminophen ([place] 10/325 (Nf)) 1 tab PO QID PRN PRN Reason: PAIN Albuterol (Ventolin 2.5 Mg/3 Ml Neb.Tiffany*) 2.5 mg INH [id number] AWAKE PRN PRN Reason: SOB/WHEEZING Amlodipine Besylate (Norvasc Tab*) 10 mg PO BEDTIME [facility] Last Admin: 04/17/18 20:54 Dose: 10 mg Aspirin (Aspirin 81 Mg Chew Tab*) 81 mg PO DAILY [facility] Last Admin: 04/17/18 09:15 Dose: 81 mg Atenolol (Tenormin Tab*) 50 mg PO DAILY [facility] Last Admin: 04/17/18 09:15 Dose: 50 mg Bumetanide (Bumex Tab*) 1 mg PO DAILY [facility] Last Admin: 04/17/18 09:14 Dose: 1 mg Clopidogrel Bisulfate (Plavix Tab*) 75 mg PO DAILY [facility] Last Admin: 04/17/18 09:14 Dose: 75 mg Dextrose (D50w Syringe 50 Ml*) 12.5 gm IV PUSH .FOR FS < 60 - SS PRN PRN Reason: FS < 60 Doxycycline Hyclate (Vibramycin Cap(*)) 100 mg PO BID [facility] Last Admin: 04/17/18 20:53 Dose: 100 mg Enoxaparin Sodium (Lovenox(*)) 40 mg SUBCUT Q24H [facility] Last Admin: 04/17/18 20:55 Dose: 40 mg Glipizide (Glucotrol Xl*) 5 mg PO DAILY [facility] Last Admin: 04/17/18 09:14 Dose: 5 mg Hydralazine HCl (Apresoline Iv*) 5 mg IV SLOW PU Q6H PRN PRN Reason: SBP>180 Last Admin: 04/17/18 09:14 Dose: 5 mg Insulin Glargine (Lantus(*)) 20 units SUBCUT DAILY [facility] Last Admin: 04/17/18 09:13 Dose: 20 units Insulin Human Lispro (Humalog*) 0 units SUBCUT ACHS [facility]; Protocol Last Admin: 04/17/18 20:55 Dose: 3 units Levothyroxine Sodium (Synthroid Tab*) 200 mcg PO 0600 [facility] Last Admin: 04/18/18 05:34 Dose: 200 mcg Mometasone Furoate/Formoterol Fumar (Dulera 200/5 Mdi*) 2 puff INH BID [facility] Last Admin: 04/18/18 08:18 Dose: 2 puff Nystatin (Nystatin Cream*) 1 applic TOPICAL TID [facility] Last Admin: 04/17/18 23:02 Dose: 1 applic Oseltamivir Phosphate (Tamiflu Cap*) 75 mg PO BID [facility] Last Admin: 04/17/18 20:54 Dose: 75 mg Prednisone (Deltasone Tab*) 20 mg PO DAILY [facility] Last Admin: 04/17/18 09:15 Dose: 20 mg Vital Signs - 8 hr 04/18/18 08:20 Pulse Rate 57 Respiratory 16 Rate O2 Sat by Pulse 98 Oximetry Oxygen Devices in Use Now: None Appearance: Elderly morbid obese lady sitting up in bed in [facility]. Eyes: No Scleral Icterus Ears/Nose/Mouth/Throat: Mucous Membranes Moist Neck: Trachea Midline Respiratory: Symmetrical Chest Expansion and Respiratory Effort, Clear to Auscultation Cardiovascular: RRR - Normal S1 and S2 Neurological: Alert and Oriented x 3, NL Muscle Strength and Tone Result Diagrams: 04/15/18 17:15 04/15/18 17:15 Assess/Plan/Problems-Billing Assessment: Mrs Juarez is a 73yo F with PMH of morbid obesity with BMI 44, HTN, HLD, DM, COPD , hypothyroidism who presented to ED with c/o increased dyspnea and dry cough, found to have COPD exacerbation secondary to Influenza. - Patient Problems (1) COPD exacerbation Comment: - Secondary to Influenza/Bronchitis. - Improving. - Continue prednisone, doxycycline, and bronchodilators. (2) Influenza Comment: - Continue Tamiflu. (3) HTN (hypertension) Comment: - Better controlled. - Continue Amlodipine, Atenolol. - Hydralazine IV PRN. (4) Diabetes Comment: - Continue glipizide, Lantus, and Lispro SS. (5) DVT prophylaxis Comment: - Lovenox. (6) Physical deconditioning Comment: - PT input appreciated - trial of stairs. If unable to, will require placement. (7) Full code status Status and Disposition: OBV. There is concern with patient's living situation. States she sometimes has to crawl to get to her 3rd floor apartment. Also concerns re: personal hygiene as she cannot reach certain areas of her body. She's reluctant to accept rehab due to her cats.
[2018-04-18] MEDS: Insulin LISPRO* 1 UNITS UNIT SUBCUT SCH ×4 (09:27→21:30)
[2018-04-18] MEDS: predniSONE TAB* 20 MG PO SCH (10:35)
[2018-04-18] MEDS: Bumetanide TAB* 1 MG PO SCH (10:35)
[2018-04-18] MEDS: Oseltamivir CAP* 75 MG CAP PO SCH ×2 (10:35→21:29)
[2018-04-18] MEDS: DOXYcycline CAP(*) 100 MG PO SCH ×2 (10:35→21:29)
[2018-04-18] MEDS: glipiZIDE TAB.XL* 5 MG PO SCH (10:35)
[2018-04-18] MEDS: Atenolol TAB* 50 MG PO SCH (10:35)
[2018-04-18] MEDS: Clopidogrel TAB* 75 MG PO SCH (10:35)
[2018-04-18] MEDS: Aspirin 81 mg CHEW TAB* 81 MG TAB.CHEW PO SCH (10:35)
[2018-04-18] MEDS: Nystatin CREAM* 15 GM TUBE TOPICAL SCH ×3 (10:36→21:42)
[2018-04-18] MEDS: Insulin GLARGINE(*) 1 UNITS UNIT SUBCUT SCH (10:36)
[2018-04-18] MEDS: Enoxaparin(*) 40 MG/0.4 ML SYR SUBCUT SCH (21:31)
[2018-04-18] MEDS: amLODIPine TAB* 5 MG PO SCH (21:31)
[2018-04-19] MEDS: Levothyroxine TAB* 100 MCG TAB PO SCH (05:41)
[2018-04-19] MEDS: Mometasone/Formoter 200/5 MDI INH SCH (07:19)
[2018-04-19] MEDS: Insulin LISPRO* 1 UNITS UNIT SUBCUT SCH ×2 (07:53→12:41)
[2018-04-19] MEDS: glipiZIDE TAB.XL* 5 MG PO SCH (09:07)
[2018-04-19] MEDS: predniSONE TAB* 20 MG PO SCH (09:07)
[2018-04-19] MEDS: DOXYcycline CAP(*) 100 MG PO SCH (09:07)
[2018-04-19] MEDS: Bumetanide TAB* 1 MG PO SCH (09:07)
[2018-04-19] MEDS: Nystatin CREAM* 15 GM TUBE TOPICAL SCH ×2 (09:07→13:18)
[2018-04-19] MEDS: Insulin GLARGINE(*) 1 UNITS UNIT SUBCUT SCH (09:07)
[2018-04-19] MEDS: Aspirin 81 mg CHEW TAB* 81 MG TAB.CHEW PO SCH (09:07)
[2018-04-19] MEDS: Clopidogrel TAB* 75 MG PO SCH (09:07)
[2018-04-19] MEDS: Atenolol TAB* 50 MG PO SCH (09:07)
[2018-04-19] MEDS: Oseltamivir CAP* 75 MG CAP PO SCH (09:07)
[2018-04-19 12:41] VITALS: BP 160/57
--- NOTE | 2018-04-19 22:51 | DS ---
CC: Dr. Busch* DISCHARGE SUMMARY: DATE OF ADMISSION: 04/15/18 DATE OF DISCHARGE: 04/19/18 PRIMARY CARE PROVIDER: Dr. Busch. DISCHARGE DIAGNOSES: 1. Acute chronic obstructive pulmonary disease exacerbation. 2. Influenza. 3. Bronchitis. SECONDARY DIAGNOSES: 1. Morbid obesity with a BMI of 44. 2. Hypertension. 3. Hyperlipidemia. 4. Type 2 diabetes. 5. Chronic obstructive pulmonary disease. 6. Hypothyroidism. MEDICATION LIST: 1. Levothyroxine 200 mcg p.o. daily. 2. Hydrocodone/acetaminophen 10/325 mg 1 tablet p.o. 4 times a day p.r.n. pain. 3. Plavix 75 mg p.o. daily. 4. Glipizide 5 mg p.o. daily. 5. Aspirin 81 mg p.o. daily. 6. Albuterol nebulized 2.5 mg 4 times a day. 7. Atenolol 50 mg p.o. daily. 8. Bumetanide 1 mg p.o. daily. 9. Lantus 25 units subcutaneously daily. NEW MEDICATIONS: 1. Prednisone taper as follows: 40 mg p.o. daily for 3 days , 30 mg for 3 days, 20 mg for 3 days, 10 mg for 3 days, 5 mg for 3 days and stop. 2. Tamiflu 75 mg p.o. b.i.d. for 4 more doses. 3. Doxycycline 100 mg p.o. b.i.d. for 3 more days. 4. Dulera 200/5 two puffs inhaled b.i.d. 5. Amlodipine 10 mg p.o. daily. HOSPITAL COURSE: Mrs. Juarez is a 73-year-old lady with past medical history as stated above who presented to the emergency room with complaints of cough and shortness of breath. For more details of her presentation, I refer to her history and physical. In the emergency room, she had a chest x-ray that showed stigmata of COPD, but no acute pulmonary or cardiac process evident. Her serology was positive for influenza A and she was admitted for further management. She did have improvement of her symptoms and responded well to doxycycline, prednisone, Tamiflu, and bronchodilators. The patient was found to have mild anemia with a hemoglobin of 10.2, microcytosis, hypochromia, and a RDW of 24. She may benefit of further anemia workup as an outpatient. While in the hospital, there was concern for the patient's ability to care for herself in her apartment. She lives in a third floor apartment and had difficulties climbing those stairs. There were also some concerns regarding her personal hygiene. I discussed with the patient the possibility of going to a penitentiary facility for subacute rehab and she declined it. She actually did well with physical therapy and it was deemed that she would not need further rehab. The patient was thought to be medically stable for discharge today and she had a referral to [facility] and also [facility]. PHYSICAL EXAMINATION: Vital signs: Temperature 97.2, heart rate 67, respiratory rate 16, oxygen saturation 98% on room air, blood pressure is 115/ 52. General: The patient is a pleasant, elderly, morbid obese lady, sitting up on the chair, in no acute distress. CVS: S1 and S2. Regular rate and rhythm. Chest: Breath sounds bilaterally diminished with no added sounds. Neuro: She is alert and oriented x3, able to move all 4 extremities. DIET: Heart-healthy consistent carb diet. ACTIVITY: As tolerated. DISPOSITION: To home. STATUS WHILE IN THE HOSPITAL: Inpatient. CONDITION AT THE TIME OF DISCHARGE: Fair. Please keep in mind this is a summarized version of this patient's hospital stay. If you need more information , please feel free to call me at [phone] or please obtain the full medical records. TIME SPENT: Approximately 45 minutes were spent to complete this discharge. [id number]/CPS #: [id number] [place]
== END 2018-04-19 14:45 | disposition home health service (06) | DRG 191 ==
LOC: ED 16:20 → MED 19:21 → OBSVTOIN 04-16 16:00
PROVIDERS: ADMIT Internal Medicine; ATTEND Internal Medicine
DX: J44.1 Chronic obstructive pulmonary disease with (acute) exacerbation (principal); I10 Essential (primary) hypertension; E78.5 Hyperlipidemia, unspecified; E11.51 Type 2 diabetes mellitus with diabetic peripheral angiopathy without gangrene; E89.0 Postprocedural hypothyroidism; E66.01 Morbid (severe) obesity due to excess calories; D64.9 Anemia, unspecified; K21.9 Gastro-esophageal reflux disease without esophagitis; M06.9 Rheumatoid arthritis, unspecified; M10.9 Gout, unspecified; F32.9 Major depressive disorder, single episode, unspecified; J10.1 Influenza due to other identified influenza virus with other respiratory manifestations; Z82.49 Family history of ischemic heart disease and other diseases of the circulatory system; Z87.891 Personal history of nicotine dependence; Z68.41 Body mass index [BMI] 40.0-44.9, adult; Z90.710 Acquired absence of both cervix and uterus; Z90.49 Acquired absence of other specified parts of digestive tract; Z98.51 Tubal ligation status; Z88.5 Allergy status to narcotic agent; Z88.2 Allergy status to sulfonamides; Z91.040 Latex allergy status; Z91.048 Other nonmedicinal substance allergy status; Z79.82 Long term (current) use of aspirin; Z79.02 Long term (current) use of antithrombotics/antiplatelets; Z79.4 Long term (current) use of insulin
CPT/HCPCS: 36415; 71046; 80053; 83605; 84443; 84484; 85025; 85610; 86140; 87040; 93005; 94640; 99284; A9270-GY; G0378; G8978-GP-CI; G8979-GP-CI; G8980-GP-CI; J0360; J1650; J7512

== ENCOUNTER 2018-12-18 12:12 | Emergency (ER) | payer MEDICARE, MEDICAID ==
--- NOTE | 2018-12-18 12:40 | ED ---
Complex/Multi-Sys Presentation - HPI Summary HPI Summary: The patient is a 73 y/o F arriving by ambulance to [facility] with a chief complaint of fatigue gradually worsening over the last few days. She reports that her in March 2018, and she has since been declining. She has been falling asleep more frequently and longer than usual. She additionally c/o neck pain and back pain. She also reports occasional nausea, and chest heaviness (none presently). She denies any fevers, SOB, vomiting, diarrhea, or dysuria. She has been noted to be non-compliant with her medications, but she states she has been taking them. She was supposed to visit her PCP yesterday, but she didnt go because she slept through the appointment. PMHx: DM, thyroid disease with surgery, HLD, HTN, asthma, COPD, GERD, arthritis, sciatica, seizures, TIA, depression, suicide attempt, substance abuse. Former smoker, rare EtOH, history of substance use. Medications reviewed. Allergies noted. - History Of Current Complaint Chief Complaint: EDGeneral Time Seen by Provider: 12/18/18 12:20 Hx Obtained From: Patient Onset/Duration: Gradual Onset, Lasting Days, Still Present Timing: Days Severity Currently: Moderate Severity Initially: Mild Aggravating Factor(s): medication non-compliant, passing of Alleviating Factor(s): nothing Associated Signs And Symptoms: Positive: Chest Pain - chest heaviness, Other - neck pain; Negative:. Negative: SOB, Vomiting, Diarrhea, Dysuria, Fever - Allergies/Home Medications Allergies/Adverse Reactions: Allergies Allergy/AdvReac Type Severity Reaction Status Date / Time Adhesive Tape Allergy Rash Verified 11/18/17 17:08 codeine Allergy Hives Verified 11/18/17 17:08 latex Allergy Hives Verified 11/18/17 17:08 Sulfa (Sulfonamide Allergy Hives Verified 11/18/17 17:08 Antibiotics) PMH/Surg Hx/FS Hx/Imm Hx Endocrine/Hematology History: Reports: Hx Diabetes, Hx Thyroid Disease Denies: Hx Anticoagulant Therapy Cardiovascular History: Reports: Hx Hypercholesterolemia, Hx Hypertension Denies: Hx Congestive Heart Failure, Hx Pacemaker/ICD Respiratory History: Reports: Hx Asthma, Hx Chronic Obstructive Pulmonary Disease (COPD) Denies: Hx Sleep Apnea GI History: Reports: Hx Gastroesophageal Reflux Disease, Other GI Disorders - ESOPHAGUS "WEAK"-DIFF SWALLOWING PILLS AT TIMES History: Reports: Hx Kidney Infection, Other Problems/Disorders - KIDNEY INFECTIONS Denies: Hx Renal Disease Musculoskeletal History: Reports: Hx Arthritis, Hx Rheumatoid Arthritis, Hx Gout , Other Musculoskeletal History - ARTHRITIS Sensory History: Reports: Hx Contacts or Glasses - reading Denies: Hx Hearing Aid Opthamlomology History: Reports: Hx Contacts or Glasses - reading Neurological History: Reports: Hx Headaches - ONCE IN A WHILE, Hx Seizures - A CHILD, Hx Transient Ischemic Attacks (TIA) Denies: Hx Dementia Psychiatric History: Reports: Hx Depression, Hx Suicide Attempt - in the past- 1980, Hx Substance Abuse - in the past - Surgical History Surgical History: Yes Surgery Procedure, Year, and Place: TONSILECTOMY. ADENOIDECTOMY. TUBAL LIGATION-[facility]. HYSTERECTOMY-[facility]. CHOLECYSTECTOMY-[facility]. PARTIAL THYROIDECTOMY LEFT- [facility] Hx Anesthesia Reactions: No - Immunization History Date of Tetanus Vaccine: UNKNOWN Date of Influenza Vaccine: 11/2017 Infectious Disease History: No Infectious Disease History: Denies: Hx Hepatitis, Hx Human Immunodeficiency Virus (HIV), Traveled Outside the [place] in Last 30 Days - Family History Known Family History: Positive: Cardiac Disease - AAA - Social History Alcohol Use: Rare Alcohol Amount: former ETOH user Hx Substance Use: No Substance Use Type: Reports: None Hx Tobacco Use: Yes - quit 1985 Smoking Status (MU): Former Smoker Type: Cigarettes Amount Used/How Often: 2 PPD X 23 YEARS Have You Smoked in the Last Year: No Review of Systems Positive: Fatigue, Other - increased sleeping. Negative: Fever Positive: Chest Pain - chest heaviness (none presently) Positive: Nausea. Negative: Vomiting, Diarrhea Negative: dysuria Positive: Arthralgia All Other Systems Reviewed And Are Negative: Yes Physical Exam - Summary Physical Exam Summary: Constitutional: Well-developed, Obese, Alert. (-) Distressed Skin: Warm, Dry HENT: Normocephalic; Atraumatic Eyes: Conjunctiva normal Neck: Musculoskeletal ROM normal neck. (-) JVD, (-) Stridor, (-) Nuchal rigidity Cardio: Rhythm regular, rate normal, Heart sounds normal; Intact distal pulses; Radial pulses are 2+ and symmetric. (-) Murmur Pulmonary/Chest wall: Effort normal. (-) Respiratory distress, (-) Wheezes, (-) Rales Abd: Soft, (-) tenderness, (-) Distension, (-) Guarding, (-) Rebound Musculoskeletal: (-) Edema, No CTL midline tenderness, paraspinal CTL tenderness. Strength 5/5 BUE BLE. Lymph: (-) Cervical adenopathy Neuro: Alert, Oriented x3 Psych: Mood and affect Normal Triage Information Reviewed: Yes Vital Signs On Initial Exam: Initial Vitals Pulse Resp BP Pulse Ox 65 20 244/119 96 12/18/18 12:09 12/18/18 12:09 12/18/18 12:09 12/18/18 12:09 Vital Signs Reviewed: Yes Procedures - Sedation Patient Received Moderate/Deep Sedation with Procedure: No Diagnostics - Vital Signs Vital Signs Temp Pulse Resp BP Pulse Ox 12/18/18 12:13 97.0 F 72 16 230/98 96 12/18/18 12:09 65 20 244/119 96 - Laboratory Result Diagrams: 12/18/18 12:39 12/18/18 12:39 Lab Statement: Any lab studies that have been ordered have been reviewed, and results considered in the medical decision making process. - Radiology CXR Radiology Interpretation Completed By: Radiologist Summary of Radiographic Findings: Impression: Findings consistent with COPD, no evidence for acute disease. ED physician has reviewed this report. - EKG 1221 Cardiac Rate: NL - 66 BPM EKG Rhythm: Sinus Rhythm Summary of EKG Findings: An EKG at 1221 reveals normal sinus rhythm 66 BPM, nml axis, nml intervals. No STEMI. No acute changes. ED physician has reviewed and interpreted this EKG. Re-Evaluation - Re-Evaluation First Eval Re-Evaluation Time: 15:23 Change: Improved Comment: Her SBP is 230 mmHg. We will continue to treat. Denies CP or SOB Second Eval Re-Evaluation Time: 15:35 Change: Improved Comment: BP is 162/75 mmHg. We discussed plan for discharge. Complex Multi-Symp Course/Dx Course Of Treatment: 73 y/o F w DM, HTN p.w fatigue. - patient denies infectious symptoms, reports intermittent chest pressure nonexertional, currently denying pain. Patient has life stressors including passing of her back in March. Patient missed her PCP appointment yesterday secondary to sleeping. Suspect that there could be some depression aspects to her that she, however, we'll check labs including troponin and EKG to assess her cardiac causes, check a chest x-ray and UA to assess for infectious causes, check a TSH given history of hypothyroidism. - regarding CP - normal EKG, trop , neg CXR for infectious symptoms, not currently having pain. No HOUSER. Do not suspect ACS. - regarding MSK pain, likely 2/2 obesity and position. No midline tenderness, no trauma. No infectious symptoms. - Diagnoses Provider Diagnoses: Fatigue Discharge ED - Sign-Out/Discharge Documenting (check all that apply): Patient Departure - Patient will be discharged home. - Discharge Plan Condition: Stable Disposition: HOME Patient Education Materials: Fatigue (ED) Referrals: Neno Busch MD [Primary Care Provider] - 3 Days Additional Instructions: You were seen in the emergency department for fatigue. Your labs did not show any evidence of infection. If any studies were not completed at the time of discharge you will be called with the relevant results. Please follow up with your primary care doctor in the next 2-3 days and return to the emergency department for worsening or concerning symptoms. It was a pleasure taking care of you today. - Billing Disposition and Condition Condition: STABLE Disposition: Home - Attestation Statements Document Initiated by Evan: Yes Documenting Scribe: Rosalinda Fatima Provider For Whom Evan is Documenting (Include Credential): Dr. Mojgan Quinteros MD Scribe Attestation: Rosalinda Torres scribed for Dr. Mojgan Quinteros MD on 12/18/18 at 1605. Scribe Documentation Reviewed: Yes Provider Attestation: The documentation as recorded by the Rosalinda maciel accurately reflects the service I personally performed and the decisions made by me, Dr. Mojgan Quinteros MD Status of Scribe Document: Viewed
[2018-12-18 12:46] LABS: ABS Eosinophils 0.1 10^3/ul (0-0.6); ABS Lymphocytes 1.5 10^3/ul (1.0-4.8); ABS Monocytes 0.5 10^3/ul (0-0.8); ABS Neutrophils 4.5 10^3/ul (1.5-7.7); Eosinophil % 1.8 %; Hematocrit 39 % (35-47); Hemoglobin 12.4 g/dL (12.0-16.0); Lymphocyte % 22.5 %; Mean Corpuscular HGB Conc 32 g/dL (31-36); Mean Corpuscular Hemoglobin 26 pg (27-31); Mean Corpuscular Volume 82 fL (80-97); Mean Platelet Volume 8.1 fL (7.4-10.4); Nucleated Red Blood Cells % 0.1; Platelet Count 181 10^3/uL (150-450); Red Blood Count 4.73 10^6 /uL (3.70-4.87); Red Cell Distribution Width 18 % (10-15); White Blood Count 6.5 10^3/uL (3.5-10.8)
[2018-12-18] MEDS ORDERED: hydrALAZINE IV* 20 MG/ML VIAL IV SLOW PU ONE (12:52)
[2018-12-18 13:04] LABS: Albumin 3.5 g/dL (3.2-5.2); Albumin/Globulin Ratio 1.2 (1-3); BUN/Creatinine Ratio 32.4 (8-20); Calcium 9.9 mg/dL (8.6-10.3); EGFR African American 97.4 (>60); EGFR Non-African American 80.5 (>60); Potassium 3.9 mmol/L (3.5-5.0); Total Bilirubin 0.2 mg/dL (0.2-1.0); Total Protein 6.5 g/dL (6.4-8.9)
[2018-12-18 13:05] LABS: Troponin I 0.01 ng/mL (<0.04)
[2018-12-18] MEDS ORDERED: hydrALAZINE TAB* 25 MG PO ONE (14:20)
[2018-12-18 15:04] LABS: Urine Appearance Cloudy; Urine Bilirubin Negative (Negative); Urine Blood Negative (Negative); Urine Color Yellow; Urine Glucose Negative (Negative); Urine Ketones Negative (Negative); Urine Nitrite Negative (Negative); Urine Protein Negative (Negative); Urine Specific Gravity 1.017 (1.010-1.030); Urine Urobilinogen Negative (Negative)
[2018-12-18 15:08] LABS: T4, Total 8.88 mcg/dL (6.09-12.23)
[2018-12-18 15:12] LABS: TSH (Thyroid Stimulating Horm) 4.09 mcIU/mL (0.34-5.60)
[2018-12-18 16:11] VITALS: BP 164/73
== END 2018-12-18 16:00 | disposition home or self-care (01) ==
LOC: ED 12:12
DX: R53.83 Other fatigue (principal); E11.9 Type 2 diabetes mellitus without complications; E03.9 Hypothyroidism, unspecified; E78.00 Pure hypercholesterolemia, unspecified; I10 Essential (primary) hypertension; J44.9 Chronic obstructive pulmonary disease, unspecified; K21.9 Gastro-esophageal reflux disease without esophagitis; Z90.710 Acquired absence of both cervix and uterus; Z90.49 Acquired absence of other specified parts of digestive tract; Z87.891 Personal history of nicotine dependence; Z88.5 Allergy status to narcotic agent; Z88.2 Allergy status to sulfonamides; Z91.040 Latex allergy status; Z79.899 Other long term (current) drug therapy
CPT/HCPCS: 36415; 71046; 80053; 81003; 84436; 84443; 84484; 85025; 93005; 96374; 99284; A9270-GY; J0360

== ENCOUNTER 2019-01-12 12:35 | Observation (INO) | payer MEDICARE, MEDICAID ==
--- NOTE | 2019-01-12 12:46 | ED ---
Back Pain - HPI Summary HPI Summary: Patient is a 73 y/o F presenting to the ED via EMS for a chief complaint of lower back pain. Patient states she typically has back pain that began after giving to her son several years ago, but has worsened over the last week. On 01/12/19, the patient was unable to stand up or walk due to the back pain. She is able to ambulate the bilateral LE. Patient also notes intermittent chills and urinary incontinence. Patient denies fever, bilateral LE weakness, numbness, paresthesia including saddle paresthesia, or bowel incontinence. Patient notified her PCP who told the patient to go to the ED. PMHx is significant for hypertension, hypercholesterolemia, arthritis, diabetes mellitus , and COPD. Patient denies an MRI of her back in the past. Patient is a former smoker, and denies alcohol or drug use. She did not take her medications on . Allergies noted. Medications reviewed. - History of Current Complaint Stated Complaint: BACK PAIN PER EMS Hx Obtained From: Patient Onset/Duration: Gradual Onset, Still Present Onset/Duration: Atraumatic, Still Present Timing: Intermittent Back Pain Location: Is Discrete @ - Lower back Severity Initially: Moderate Severity Currently: Moderate Pain Scale Used: 0-10 Numeric Aggravating Symptom(s): Walking Associated Signs And Symptoms: Positive: Bladder Incontinence, Pain with Weight Bearing. Negative: Fever, Weakness, Numbness, Tingling, Bowel Incontinence Related History: Previous Back Injury - Allergies/Home Medications Allergies/Adverse Reactions: Allergies Allergy/AdvReac Type Severity Reaction Status Date / Time Adhesive Tape Allergy Rash Verified 01/12/19 15:20 codeine Allergy Hives Verified 01/12/19 15:20 latex Allergy Hives Verified 01/12/19 15:20 Sulfa (Sulfonamide Allergy Hives Verified 01/12/19 15:20 Antibiotics) Home Medications: Home Medications Loperamide CAP* [Imodium CAP*] 2 mg PO BID PRN 01/12/19 [History Confirmed 01/12] Nabumetone TAB* [Relafen TAB*] 750 mg PO BID 01/12/19 [History Confirmed ] Rosuvastatin (NF) [Crestor] 20 mg PO DAILY 01/12/19 [History Confirmed 01/12/19] Vit B Comp/C/FA/Iron Sulf/Neil [Stress Formula with Iron Tab] 1 each PO DAILY [History Confirmed 01/12/19] traZODone TAB* [Desyrel TAB*] 50 mg PO BEDTIME 01/12/19 [History Confirmed 01/12] PMH/Surg Hx/FS Hx/Imm Hx Previously Healthy: Yes Endocrine/Hematology History: Reports: Hx Diabetes, Hx Thyroid Disease Denies: Hx Anticoagulant Therapy Cardiovascular History: Reports: Hx Hypercholesterolemia, Hx Hypertension Denies: Hx Congestive Heart Failure, Hx Pacemaker/ICD Respiratory History: Reports: Hx Asthma, Hx Chronic Obstructive Pulmonary Disease (COPD), Other Respiratory Problems/Disorders Denies: Hx Sleep Apnea GI History: Reports: Hx Gastroesophageal Reflux Disease, Other GI Disorders - ESOPHAGUS "WEAK"-DIFF SWALLOWING PILLS AT TIMES History: Reports: Hx Kidney Infection, Other Problems/Disorders - KIDNEY INFECTIONS Denies: Hx Renal Disease Musculoskeletal History: Reports: Hx Arthritis, Hx Rheumatoid Arthritis, Hx Gout , Other Musculoskeletal History - ARTHRITIS Sensory History: Reports: Hx Contacts or Glasses - reading Denies: Hx Legally Blind, Hx Deafness, Hx Hearing Aid Opthamlomology History: Reports: Hx Contacts or Glasses - reading Denies: Hx Legally Blind EENT History: Denies: Hx Deafness Neurological History: Reports: Hx Headaches - ONCE IN A WHILE, Hx Seizures - A CHILD, Hx Transient Ischemic Attacks (TIA) Denies: Hx Dementia Psychiatric History: Reports: Hx Depression, Hx Suicide Attempt - in the past- 1980, Hx Substance Abuse - in the past - Surgical History Surgical History: Yes Surgery Procedure, Year, and Place: TONSILECTOMY. ADENOIDECTOMY. TUBAL LIGATION-[facility] [place]. HYSTERECTOMY-[facility] [place]. CHOLECYSTECTOMY-[facility] [place]. PARTIAL THYROIDECTOMY LEFT- [facility] [place] Hx Anesthesia Reactions: No - Immunization History Date of Tetanus Vaccine: UNKNOWN Date of Influenza Vaccine: 11/2017 Infectious Disease History: Denies: Hx Hepatitis, Hx Human Immunodeficiency Virus (HIV) - Family History Known Family History: Positive: Cardiac Disease - AAA - Social History Occupation: Disabled Lives: Alone Alcohol Use: Rare Alcohol Amount: former ETOH user Hx Substance Use: No Substance Use Type: Reports: None Hx Tobacco Use: Yes - quit 1985 Smoking Status (MU): Former Smoker Type: Cigarettes Amount Used/How Often: 2 PPD X 23 YEARS Have You Smoked in the Last Year: No Review of Systems Positive: Chills. Negative: Fever Positive: incontinence - Urinary Positive: Myalgia - Back, Other - Negative bowel incontinence Negative: Weakness - Negative bilateral LE, Paresthesia - Including negative saddle anesthesia, Numbness All Other Systems Reviewed And Are Negative: Yes Physical Exam - Summary Physical Exam Summary: Constitutional: Well-developed, Well-nourished, Alert. (-) Distressed Skin: Warm, Dry HENT: Normocephalic; Atraumatic Eyes: Conjunctiva normal Neck: Musculoskeletal ROM normal neck. (-) JVD, (-) Stridor, (-) Tracheal deviation Cardio: Rhythm regular, rate normal, Heart sounds normal; Intact distal pulses; Radial pulses are 2+ and symmetric. (-) Murmur Pulmonary/Chest wall: Effort normal. (-) Respiratory distress, (-) Wheezes, (-) Rales Abd: Soft, (-) tenderness, (-) Distension, (-) Guarding, (-) Rebound Musculoskeletal: (-) Edema. Midline lumbar tenderness, able to roll on her back but has pain, sensation intact, able to range both lower extremities. Lymph: (-) Cervical adenopathy Neuro: Alert, Oriented x3 Psych: Mood and affect Normal Triage Information Reviewed: Yes Vital Signs Reviewed: Yes Procedures - Sedation Patient Received Moderate/Deep Sedation with Procedure: No Diagnostics - Laboratory Result Diagrams: 01/12/19 13:20 01/12/19 13:20 Lab Statement: Any lab studies that have been ordered have been reviewed, and results considered in the medical decision making process. - CT Lumbar Spine CT CT Interpretation Completed By: Radiologist Summary of CT Findings: Lumbar Spine CT IMPRESSION: DEGENERATIVE DISC DISEASE AND OSTEOARTHRITIS. NO ACUTE OSSEOUS INJURY TO THE CERVICAL SPINE. Reviewed by Dr. Broderick. - EKG 15:00 Cardiac Rate: Other Rate - 70 BPM EKG Rhythm: Atrial Fibrillation ST Segment: Normal Ectopy: None Summary of EKG Findings: EKG at 15:00 shows 70 BPM with atrial fibrillation, T wave inversion in lead III, no STEMI. Reviewed and interpreted by Dr. Broderick. Re-Evaluation - Re-Evaluation First Eval Re-Evaluation Time: 14:03 Change: Improved Comment: At 14:03, patient looks more comfortable after receiving medication. Second Eval Re-Evaluation Time: 14:58 Change: Unchanged Comment: At 14:58, patient was sleeping and woke up with left-sided chest pain. I will get an EKG and give NTG. Back Pain Course/Dx - Course Course Of Treatment: Patient is here with lower back pain. Patient's had chronic lower back pain acutely got worse this past couple of days. Patient is an difficulty walking today but was able to transfer to the stretcher via EMS. Patient had no clinical symptoms consistent with cauda equina. Patient has history of diabetes so ESR and CRP were sent which were borderline elevated but not consistent with epidural abscess. Patient had negative CT scan for any acute changes. During her stay here, patient developed left-sided chest pain that was relieved with nitroglycerin. Given patient's heart score of 5, she was admitted to the hospital. - Diagnoses Provider Diagnoses: Chest pain, Back pain, Hypertensive crisis - Provider Notifications Discussed Care Of Patient With: Hari Padilla - At 16:04, Dr. Hari Padilla agrees to admit the patient to [facility] [place] with a diagnosis of chest pain, lower back pain, and hypertensive crisis. Time Discussed With Above Provider: 16:04 Instructed by Provider To: Admit As Inpatient Discharge ED - Sign-Out/Discharge Documenting (check all that apply): Patient Departure - Admit - Discharge Plan Condition: Stable Disposition: ADMITTED TO [facility] Referrals: Neno Busch MD [Primary Care Provider] - - Billing Disposition and Condition Condition: STABLE Disposition: Admitted to [facility] - Attestation Statements Document Initiated by Evan: Yes Documenting Scribe: Lorrie Breen Provider For Whom Evan is Documenting (Include Credential): Avery Broderick MD Scribe Attestation: Lorrie Torres, scribed for Avery Broderick MD on 01/12/19 at 1823. Scribe Documentation Reviewed: Yes Provider Attestation: The documentation as recorded by the Lorrie maciel accurately reflects the service I personally performed and the decisions made by me, Avery Broderick MD Status of Scribe Document: Viewed
[2019-01-12] MEDS ORDERED: Morphine 4 MG/ML VIAL (1 ml) 4 MG/ML VIAL IV ONE (12:51)
[2019-01-12 13:34] LABS: ABS Eosinophils 0.2 10^3/ul (0-0.6); ABS Lymphocytes 1.7 10^3/ul (1.0-4.8); ABS Monocytes 0.5 10^3/ul (0-0.8); ABS Neutrophils 5.3 10^3/ul (1.5-7.7); Eosinophil % 2.1 %; Hematocrit 38 % (35-47); Hemoglobin 12.3 g/dL (12.0-16.0); Lymphocyte % 22.1 %; Mean Corpuscular HGB Conc 33 g/dL (31-36); Mean Corpuscular Hemoglobin 27 pg (27-31); Mean Corpuscular Volume 82 fL (80-97); Mean Platelet Volume 7.9 fL (7.4-10.4); Platelet Count 187 10^3/uL (150-450); Red Blood Count 4.61 10^6 /uL (3.70-4.87); Red Cell Distribution Width 18 % (10-15); White Blood Count 7.6 10^3/uL (3.5-10.8)
[2019-01-12 13:50] LABS: Albumin 3.6 g/dL (3.2-5.2); Albumin/Globulin Ratio 1.2 (1-3); BUN/Creatinine Ratio 30.6 (8-20); C Reactive Protein 13.89 mg/L (<8.01); Calcium 10.8 mg/dL (8.6-10.3); EGFR African American 95.8 (>60); EGFR Non-African American 79.2 (>60); Potassium 4.4 mmol/L (3.5-5.0); Total Bilirubin 0.3 mg/dL (0.2-1.0); Total Protein 6.6 g/dL (6.4-8.9)
[2019-01-12] MEDS ORDERED: Aspirin 81 mg CHEW TAB* 81 MG TAB.CHEW PO ONE (14:59)
[2019-01-12 15:03] LABS: Erythrocyte Sed Rate 34 mm/Hr (0-29)
[2019-01-12] MEDS: Nitroglycerin TAB 0.4 MG* 0.4 MG TAB SL ONE ×2 (15:05→15:19)
[2019-01-12] MEDS ORDERED: Acetaminophen TAB* 325 MG PO PRN (17:30)
[2019-01-12] MEDS ORDERED: Cyclobenzaprine TAB* 10 MG PO PRN (17:44)
[2019-01-12] MEDS ORDERED: HYDROcodone/ACETAM 10-325 MG(NF) 1 TAB PO PRN (18:04)
[2019-01-12] MEDS ORDERED: Dextrose 50% VIAL 50 ml IV PUSH PRN (18:06)
[2019-01-12 18:12] LABS: TSH (Thyroid Stimulating Horm) 5.87 mcIU/mL (0.34-5.60)
[2019-01-12 19:09] LABS: Free T4 0.75 ng/dL (0.61-1.12)
--- NOTE | 2019-01-12 19:39 | HP ---
CC: Dr. Busch * HISTORY AND PHYSICAL: DATE OF ADMISSION: 01/12/19 PRIMARY CARE PROVIDER: Dr. Busch. ATTENDING PHYSICIAN: Dr. Hari Padilla * (dictated by DENICE Esqueda). CHIEF COMPLAINT: 1. Low back pain. 2. Chest pain. HISTORY OF PRESENT ILLNESS: Ms. Juarez is a 73-year-old female with past medical history of diabetes mellitus, hypertension, hyperlipidemia, and history of tobacco abuse who presented to the ER today with complaints of low back pain. She states that the pain is in the middle of her low back. She does occasionally have neck pain, but has had none since this morning prior to seeking medical attention. She states that her low back pain does not radiate down her legs. She has no history of injury or surgical intervention, although she does report that she had an epidural in 1963 and the provider who performed the epidural said she moved. Since that time, she has had chronic back pain that has been constant. She notes that the pain is better when she is still and worse with movement. Currently, her pain is 0/10 and she believes that her pain was relieved with morphine and Nitro. At baseline, she walks with a walker or cane and she notes that she could not straighten her back today, and when she took a step to walk, she had shooting pain in the mid back that did not radiate anywhere. Again, the patient does have chronic back pain, but it has been worse recently. She has been taking hydrocodone for approximately 10 years and tries to limit its use to approximately 2 times per day. She has had no hydrocodone today. In the ER, the patient was given 4 mg IV morphine. She fell asleep and awoke suddenly with midsternal chest pain. This pain lasted 5 to 10 minutes. She notes that the pain did not change with breathing. She denied associated diaphoresis, nausea, or shortness of breath. Upon waking with chest pain, the patient rang for help and Nitro and aspirin were administered. Since then, the patient has been chest pain free. She notes that she has not taken her blood pressure medications recently and she is currently hypertensive with systolic blood pressure in the low 200s. She does complain of occasional dizziness and lightheadedness, but denies vision changes. She notes that she had a headache today after she took one dose of Nitro, but this has since resolved. In the ER, the patient received a full workup including blood work revealing a mildly elevated ESR and elevated CRP. The patient is noted to be hypertensive with systolic blood pressure of 213/80 currently. EKG was obtained and reveals T-wave inversion in lead V3; otherwise, no ST changes. CT of the L-spine was obtained and revealed degenerative disk disease, osteoarthritis with no acute osseous injury. Aspirin 324 mg, morphine 4 mg IV, and Nitro 0.4 mg sublingual were administered to the patient while she was in the ER. PAST MEDICAL HISTORY: 1. Diabetes mellitus, insulin dependent. 2. Hypertension. 3. Hyperlipidemia. 4. Hypothyroidism. 5. COPD, asthma. 6. GERD. 7. Arthritis. PAST SURGICAL HISTORY: Tonsillectomy, adenoidectomy, tubal ligation, hysterectomy, cholecystectomy, left partial thyroidectomy. HOME MEDICATIONS: 1. Aspirin 81 mg p.o. daily. 2. Atenolol 50 mg p.o. daily. 3. Insulin glargine 25 units subcu daily. 4. Levothyroxine 200 mcg p.o. daily. 5. Loperamide 2 mg p.o. b.i.d. p.r.n. for diarrhea. 6. Nabumetone 750 mg p.o. b.i.d. 7. Rosuvastatin 20 mg p.o. daily. 8. Trazodone 50 mg p.o. at bedtime. 9. Stress Formula With Iron tab 1 tab p.o. daily. DRUG ALLERGIES: ADHESIVE TAPE, rash; CODEINE, hives; LATEX, hives; SULFA, hives. FAMILY HISTORY: Father at the age of 82 from [place]. Mother from [facility]. The patient had 2 brothers who are both , 1 with a history of diabetes mellitus, 1 with a history of CVA. Father also had colon cancer. SOCIAL HISTORY: The patient quit smoking in 1985. Prior to that, she had a 30 - pack-year smoking history. She quit drinking alcohol in 1995. She does not use any recreational drugs. 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 She lives with her 2 roommates. In the event that she is unable to make her own medical decisions , she has appointed her daughter, Lea Ernandez, to be her surrogate decision maker. REVIEW OF SYSTEMS: A 14-point review of systems has been performed, and all the pertinent positives and negatives are in the HPI. All other systems are negative. PHYSICAL EXAMINATION GENERAL: Ms. Juarez is a well-developed, well-nourished, obese, older white female who is lying on her left side in bed. She appears mildly uncomfortable, especially with movement. She is cooperative, appropriate, pleasant. VITAL SIGNS: Temperature 98.3 temporal, heart rate 55, respiratory rate 14, oxygen saturation 96% on room air, blood pressure 213/80. HEENT: PERRL. EOMI. Nonicteric sclerae. Hearing is grossly intact. Oral mucous membranes are moist. There are no lesions. The pharynx is clear. Tongue is at midline. Palate elevates symmetrically. PULMONARY: Symmetrical chest expansion without use of accessory muscles. Lungs are clear to auscultation bilaterally without rhonchi, wheeze, rubs, or rales. There is no digital clubbing or cyanosis. CARDIOVASCULAR: Regular rate and rhythm with S1, S2 present. There are no murmurs, rubs, clicks, or gallops. There appears to be mild JVD. Radial pulses are palpable and equal. ABDOMEN: Obese. Bowel sounds in all quadrants. Soft, nontender to palpation. There is no palpable mass, no visible pulsatile mass, although body habitus limits this aspect of the exam. MUSCULOSKELETAL: Mild tenderness to palpation along the length of the spine with increased tenderness to palpation at the lower lumbar area. Positive left straight leg raise at approximately 20 degrees. NEURO: The patient is awake. She is alert and oriented x3. Cranial nerves are grossly intact. Muscle strength 5/5 bilaterally in the upper and lower extremities. Strength is equal. Filter Press Pumper strength is equal. DIAGNOSTIC STUDIES/LAB DATA: CBC without gross abnormality. ESR 34. Glucose 158. CRP 13.89. Troponin 0.01. ECG shows sinus arrhythmia with a rate of 70, T-wave inversion in lead III. CT of the lumbar spine, impression: Degenerative disk disease and osteoarthritis. No acute osseous injury. ASSESSMENT AND PLAN: Ms. Juarez is a 73-year-old female with a past medical history of diabetes mellitus, hypertension, hyperlipidemia, hypothyroidism, arthritis, chronic low back pain, and former history of tobacco abuse who presented to the ER today with complaints of low back pain. She then developed chest pain that lasted for 5 to 10 minutes and was relieved with Nitro. EKG reveals T-wave inversion. The patient will be admitted for: 1. Low back pain. The patient has an approximately 55-year history of low back pain. She states that her pain has been worse recently. There is concern for abdominal aortic aneurysm due to family history of abdominal aortic aneurysm as well as personal history of hypertension and tobacco abuse. An ultrasound of the abdomen has been ordered. In the meantime, the patient has been offered Tylenol and Flexeril. She will continue on her home hydrocodone. PT and OT had been ordered. 2. Chest pain, rule out acute coronary syndrome. The patient was resting in the ER and awoke with sudden midsternal chest pain that lasted 5 to 10 minutes and was relieved with Nitro. EKG revealed T-wave inversion. The patient's HEART score is 5. YAHAIRA score is 3. Initial troponin was 0.01. We will continue to trend troponins q.3 hours for a total of 3 measurements. EKG has been ordered for the a.m. Risk assessment will be performed with a hemoglobin A1c and lipid panel. Stress test has been ordered for the morning. An echocardiogram will also be ordered. 3. Hypertension. The patient is hypertensive with systolic pressures in the 200s. She has missed her morning dose of atenolol; this will be given now. Hydralazine IV p.r.n. has been ordered for systolic blood pressure greater than 170. 4. Diabetes mellitus. The patient has diabetes mellitus, insulin dependent, and is on glargine 25 units at home. She will be placed on 20 units subcu daily. Lispro sliding scale with fingersticks a.c. has been ordered as well. 5. Hyperlipidemia. Check lipid level. Continue home statin. 6. Hypothyroidism. Check TSH and continue home levothyroxine. 7. DVT prophylaxis. According to the DVT Risk Assessment, the patient scores 3 , placing her at high risk. She will be placed on heparin subcu. 8. Code status. Full code. TIME SPENT: Approximately 60 minutes were spent on this admission, greater than half that time was spent [id number] with the patient obtaining history, performing a physical, and reviewing the plan of care. The case has been reviewed with my attending, Dr. Padilla, who is in agreement with the plan of care. HALLEY MINA, DENICE [id number]/[facility] #: [id number] [place]
[2019-01-12] MEDS: Atenolol TAB* 50 MG PO SCH (20:10)
[2019-01-12] MEDS: hydrALAZINE IV* 20 MG/ML VIAL IV SLOW PU PRN (20:11)
[2019-01-12] MEDS: Heparin VIAL(*) 5000 UNITS/ML VIAL (FIVE THOUSAND) SUBCUT SCH (20:11)
[2019-01-13] MEDS: Levothyroxine TAB* 100 MCG TAB PO SCH (06:10)
[2019-01-13 06:47] LABS: HDL Cholesterol 28.5 mg/dL
[2019-01-13] MEDS ORDERED: Regadenoson* 0.4 MG/5 ML SYRINGE ONE (08:50)
[2019-01-13] MEDS ORDERED: Aminophylline IV* 25 MG/ML 10 ML VIAL ONE (08:51)
[2019-01-13] MEDS ORDERED: Pneumococcal *Vac Polyvalent 0.5 ML VIAL IM ONE (09:00)
[2019-01-13] MEDS ORDERED: hydrALAZINE IV* 20 MG/ML VIAL ONE (09:14)
[2019-01-13] MEDS: hydrALAZINE IV* 20 MG/ML VIAL IV SLOW PU PRN ×4 (09:20→20:49)
[2019-01-13] MEDS: Insulin LISPRO* 1 UNITS UNIT SUBCUT SCH ×4 (09:30→17:20)
[2019-01-13] MEDS: Atorvastatin* 40 MG TAB PO SCH (09:40)
[2019-01-13] MEDS: Aspirin 81 mg CHEW TAB* 81 MG TAB.CHEW PO SCH (09:40)
[2019-01-13] MEDS: Atenolol TAB* 50 MG PO SCH (09:40)
--- NOTE | 2019-01-13 09:45 | ECHO ---
*[facility]* [place] [address] Fax #: [phone] Transthoracic Echocardiogram Patient: Juany Juarez : 1945 Study Date: 01/13/2019 Age: 73 Gender: F HR: 49 bpm Height: 64 in /162.6 cm BSA: 2.19 m^2 Weight: 259.5 lb /117.9 kg BMI: 44.6 kg/m^2 *Mortgage Coordinator: * Lisa Kaur RDCS RN *Referring Physician: * Inocencia LucianoReading Physician: * Carlos Montoya MD Indications: Chest Pain, unspecified. Abnormal EKG. History: Risk factors: Former tobacco use. Hypertension. Diabetes mellitus. Morbidly obese. Dyslipidemia. Conclusions Summary: - Left ventricle: The cavity size is mildly reduced. Wall thickness is mildly to moderately increased. Systolic function is normal. The estimated ejection fraction is 65-70%. Wall motion is normal; there are no regional wall motion abnormalities. - Right ventricle: Systolic function is normal. - Left atrium: The atrium is mildly dilated. - Pulmonary arteries: Systolic pressure is within the normal range, estimated to be 33 mm Hg. - Aortic valve sclerosis and calcification without any significant stenosis by doppler evaluation Study data: Transthoracic echocardiogram. Procedure: Transthoracic echocardiography was performed. Image quality was fair. The study was technically limited due to body habitus and smoking history. Complete 2D, spectral Doppler, and color flow Doppler. Location: Bedside. Patient status: Observation. Patient room number: 448-02. Rhythm: Bradycardia. Findings Left ventricle: The cavity size is mildly reduced. Wall thickness is mildly to moderately increased. Systolic function is normal. The estimated ejection fraction is 65-70%. Wall motion is normal; there are no regional wall motion abnormalities. Left ventricular diastolic function parameters are indeterminate. Right ventricle: The cavity size is normal. Systolic function is normal. Left atrium: The atrium is mildly dilated. Right atrium: The atrium is mildly dilated. Mitral valve: The leaflets are mildly thickened. There is no evidence of stenosis. There is mild regurgitation. Aortic valve: The annulus is mildly calcified. The leaflets are mildly thickened. The findings are consistent with mild stenosis. There is mild regurgitation. Tricuspid valve: Not well visualized. There is no evidence of stenosis. There is trace regurgitation. Pulmonic valve: Not well visualized. There is no evidence of stenosis. There is no significant regurgitation. Aorta: Aortic root: The aortic root is not dilated. Ascending aorta: The ascending aorta is not dilated. Aortic arch: The aortic arch is not visualized. Pericardium: A prominent pericardial fat pad is present. There is no significant pericardial effusion. Pulmonary arteries: Not well visualized. Systolic pressure is within the normal range, estimated to be 33 mm Hg. Systemic veins: Inferior vena cava: Not visualized. Measurements Left ventricle Value Ref Aortic valve Value Ref SAUNDRA, LAX (L) 3.7 cm 3.8 - 5.2 Tamia diam, ED 2.1 cm ---- PW, ED, LAX (H) 1.4 cm 0.6 - 0.9 Tamia diam/bsa, ED 0.9 cm/m^2 ---- PW, ED (H) 1.4 cm 0.6 - 0.9 Peak v, S 1.7 m/sec ---- E', lat tamia, TDI (L) 5.2 cm/sec >=10.0 VTI, S 48.9 cm -- -- E/e', lat tamia, 21 Mean grad, S 8.0 mm Hg ---- TDI Peak grad, S 12.0 mm Hg ---- E', med tamia, TDI (L) 5.1 cm/sec >=7.0 LVOT/AV, VTI ratio 0.4 -- -- E/e', med tamia, 22 YAAKOV, VTI 1.39 cm^2 ---- TDI YAAKOV, Vmax 1.70 cm^2 ---- E', avg, TDI 5.2 cm/sec AR peak v 3.88 m/sec ---- E/e', avg, TDI (H) 22 <=14 AR PHT 531 ms -- -- AR peak grad 60 mm Hg ---- LVOT Value Ref Diam, S 2.10 cm Mitral valve Value Ref Area 3.5 cm^2 Peak E 1.11 m/sec ---- Peak tab, S 0.84 m/sec Peak A 1.06 m/sec ---- VTI, S 19.7 cm Decel time 271 ms ---- Mean grad, S 1 mm Hg Peak grad, D 4.9 mm Hg ---- SV 68 ml Peak E/A ratio 1 ---- SV/bsa 31 ml/m^2 Pulmonic valve Value Ref Ventricular septum Value Ref Peak v, S 0.88 m/sec ---- IVS, ED (H) 1.4 cm 0.6 - 0.9 Peak grad, S 3.0 mm Hg ---- Right ventricle Value Ref Tricuspid valve Value Ref SAUNDRA, LAX 3.2 cm Peak RV-RA grad, S 25 mm Hg ---- SAUNDRA minor ax, A4C 3.5 cm 1.9 - 3.5 Max TR tab 2.5 m/sec ---- mid Pressure, S 33 mm Hg Aortic root Value Ref Root diam 3.0 cm <4.3 Left atrium Value Ref AP dim, ES (H) 4.30 cm 2.70 - Ascending aorta Value Ref 3.80 AAo AP diam, S 3.1 cm ---- ML dim, A4C 4.3 cm SI dim, A4C 5.5 cm Pulmonary artery Value Ref Vol/bsa, ES, A/L 27 ml/m^2 16 - 34 Pressure, S 33.0 mm Hg ---- Right atrium Value Ref ML dim, ES, A4C 3.7 cm 2.6 - 4.4 SI dim, ES, A4C 4.9 cm 3.4 - 5.3 Estimated RAP 8 mm Hg Legend: (L) and (H) anna values outside specified reference range. Prepared and electronically signed by Carlos Montoya MD 01/13/2019 09:45
[2019-01-13] MEDS ORDERED: Lisinopril TAB* 5 MG PO SCH (11:00)
[2019-01-13] MEDS: Heparin VIAL(*) 5000 UNITS/ML VIAL (FIVE THOUSAND) SUBCUT SCH ×2 (11:39→20:49)
[2019-01-13] MEDS: Insulin GLARGINE(*) 1 UNITS UNIT SUBCUT SCH (11:40)
[2019-01-13] MEDS ORDERED: Iodixanol* (CONTRAST) 320 MG/ML 100 ML SDV IV ONE (12:18)
--- NOTE | 2019-01-13 20:00 | PN ---
Subjective Date of Service: 01/13/19 Interval History: Patient had nausea and headache at cardiac portion of stress test, which did resolve with better BP control with hydralazine. Since returning to floor, all resolved. Chest pain resolved. Denies dyspnea, fever/chills. Back pain is at her baseline today. Objective Active Medications: Acetaminophen (Tylenol Tab*) 650 mg PO Q4H PRN PRN Reason: mild to moderate pain Last Admin: 01/12/19 20:10 Dose: 650 mg Hydrocodone Bitart/Acetaminophen (Hydrocodone/Acetam 10-325 Mg(N) 1 tab PO Q8H PRN PRN Reason: PAIN - SEVERE Aspirin (Aspirin 81 Mg Chew Tab*) 81 mg PO DAILY [facility] Last Admin: 01/13/19 09:40 Dose: 81 mg Atenolol (Tenormin Tab*) 50 mg PO DAILY [facility] Last Admin: 01/13/19 09:40 Dose: 50 mg Atorvastatin Calcium (Lipitor*) 40 mg PO DAILY [facility] Last Admin: 01/13/19 09:40 Dose: 40 mg Cyclobenzaprine HCl (Flexeril Tab*) 10 mg PO TID PRN PRN Reason: SPASMS Dextrose (Dextrose 50% Vial 50 Ml*) 25 ml IV PUSH .FOR FS < 60 - SS PRN PRN Reason: FS < 60 Heparin Sodium (Porcine) (Heparin Vial(*)) 5,000 units SUBCUT Q12HR [facility] Last Admin: 01/13/19 11:39 Dose: 5,000 units Hydralazine HCl (Apresoline Iv*) 5 mg IV SLOW PU Q6H PRN PRN Reason: SBP > 170 Last Admin: 01/13/19 09:32 Dose: 5 mg Insulin Glargine (Lantus(*)) 20 units SUBCUT DAILY [facility] Last Admin: 01/13/19 11:40 Dose: 20 units Insulin Human Lispro (Humalog*) 0 units SUBCUT AC [facility]; Protocol Last Admin: 01/13/19 17:20 Dose: 3 unit Levothyroxine Sodium (Synthroid Tab*) 200 mcg PO DAILY@0600 [facility] Last Admin: 01/13/19 06:10 Dose: 200 mcg Levothyroxine Sodium (Synthroid Tab*) 25 mcg PO DAILY@0600 [facility] Lisinopril (Prinivil Tab*) 5 mg PO DAILY [facility] Last Admin: 01/13/19 11:11 Dose: 5 mg Nystatin (Nystatin Top Powder*) 1 applic TOPICAL TID [facility] Vital Signs - 8 hr 01/13/19 14:53 Temperature 97.8 F Pulse Rate 56 Respiratory 18 Rate Blood Pressure 155/52 (mmHg) O2 Sat by Pulse 97 Oximetry Oxygen Devices in Use Now: None Appearance: Obese, elderly white female, laying in bed, appearing in NAD Eyes: No Scleral Icterus, - - PERRL Ears/Nose/Mouth/Throat: Mucous Membranes Moist Neck: Trachea Midline Respiratory: Symmetrical Chest Expansion and Respiratory Effort, Clear to Auscultation Cardiovascular: NL Sounds; No Murmurs; No JVD, RRR Abdominal: - - abd soft, nontender, nondistended Extremities: No Edema, No Clubbing, Cyanosis Skin: No Rash or Ulcers Neurological: Alert and Oriented x 3, NL Muscle Strength and Tone Result Diagrams: 01/12/19 13:20 01/12/19 13:20 Assess/Plan/Problems-Billing Assessment: 73 yo white female with PMHx HTN, HLD, DMT2, COPD, hypothyroidism, ashtma, GERD , chronic back pain presents with worsened back pain and chest pain. - Patient Problems (1) Chest pain Current Visit: Yes Status: Acute Code(s): R07.9 - CHEST PAIN, UNSPECIFIED SNOMED Code(s): 94912440 Comment: -troponins neg x 3 -for unclear reasons, radiology portion of stress test performed in two days and therefore still pending. Cardiology portion without evidence of ischemia. -resolved by time of evaluation today -possibly related to hypertensive urgency -aortic dissection/aneurysm ruled out with CTA (2) DM type 2 (diabetes mellitus, type 2) Current Visit: No Status: Chronic Priority: Medium Comment: -20 U lantus and SS lispro -A1c 7.5 (3) HTN (hypertension) Current Visit: No Status: Chronic Priority: Medium Code(s): I10 - ESSENTIAL (PRIMARY) HYPERTENSION SNOMED Code(s): 30961935 Comment: -significantly hypertensive, requiring 15 mg hydralazine IV today -more controlled in afternoon -started lisinopril -cont atenolol (4) Hypothyroidism Current Visit: No Status: Chronic Priority: Medium Code(s): E03.9 - HYPOTHYROIDISM, UNSPECIFIED SNOMED Code(s): 27936249 Comment: -TSH elevated -increased synthroid to 225 mcg and will need f/u TSH in 4-6wks outpatient (5) Full code status Current Visit: No Status: Acute Code(s): Z78.9 - OTHER SPECIFIED HEALTH STATUS SNOMED Code(s): 636255750 (6) DVT prophylaxis Current Visit: No Status: Acute Code(s): TWJ4706 - SNOMED Code(s): 765113028 Comment: - subQ heparin Status and Disposition: pending stress test
[2019-01-14] MEDS: Nystatin TOP POWDER* 15 GM BTL TOPICAL SCH ×2 (00:44→09:48)
[2019-01-14] MEDS: Levothyroxine TAB* 100 MCG TAB PO SCH (05:54)
[2019-01-14] MEDS ORDERED: Levothyroxine TAB* 25 MCG TAB PO SCH (06:00)
[2019-01-14 07:54] VITALS: BP 153/46
[2019-01-14] MEDS ORDERED: Lisinopril TAB* 5 MG PO SCH (09:00)
[2019-01-14] MEDS: Insulin GLARGINE(*) 1 UNITS UNIT SUBCUT SCH (09:46)
[2019-01-14] MEDS: Insulin LISPRO* 1 UNITS UNIT SUBCUT SCH ×2 (09:46→11:02)
[2019-01-14] MEDS: Atorvastatin* 40 MG TAB PO SCH (09:47)
[2019-01-14] MEDS: Aspirin 81 mg CHEW TAB* 81 MG TAB.CHEW PO SCH (09:47)
[2019-01-14] MEDS: Heparin VIAL(*) 5000 UNITS/ML VIAL (FIVE THOUSAND) SUBCUT SCH (09:47)
[2019-01-14] MEDS: Atenolol TAB* 50 MG PO SCH (09:47)
--- NOTE | 2019-01-14 11:57 | DS ---
CC: Dr. Busch * DISCHARGE SUMMARY: DATE OF ADMISSION: 01/12/19 DATE OF DISCHARGE: 01/14/19 ATTENDING PHYSICIAN WHILE IN THE HOSPITAL: Dr. Shashi Vinson * (dictated by DENICE Dietz) PRIMARY CARE PROVIDER: Dr. Busch. PRIMARY DIAGNOSES: 1. Chest pain likely secondary to hypertensive urgency. 2. Acute on chronic back pain, improved. SECONDARY DIAGNOSES: 1. Diabetes mellitus type 2, insulin dependent. 2. Hypertension. 3. Hyperlipidemia. 4. Hypothyroidism. 5. Chronic obstructive pulmonary disease. 6. Asthma. 7. Gastroesophageal reflux disease. 8. Arthritis. PERTINENT LAB DATA: TSH 5.87, hemoglobin A1c 7.5. STUDIES WHILE IN THE HOSPITAL: Nuclear medicine portion of stress test on , impression: Fixed photopenia of the inferior wall. This may be an artifact of soft tissue attenuation or reflect previous infarct. There is no definite reversibility to suggest ischemia. Assessment: Low risk. Carotid Doppler bilateral on 01/13/19, impression: Less than 50% stenosis of both internal carotids. CTA of chest, abdomen, pelvis: No evidence for aortic dissection. No evidence for pulmonary embolism. COPD. Hepatitic steatosis. Mild splenomegaly. Status post hysterectomy and cholecystectomy. Transthoracic echocardiogram on 01/13/19: Ejection fraction 65% to 70%. Wall motion is normal. There are no regional wall motion abnormalities. Left ventricular diastolic function parameters are indeterminant. Lumbar spine CT 01/12/19: Degenerative disk disease and osteoarthritis. No acute osseous injury to the lumbar spine. HISTORY OF PRESENT ILLNESS/HOSPITAL COURSE: Juany Juarez is a 73-year-old white female with past medical history significant for insulin dependent diabetes mellitus type 2, hypertension, hyperlipidemia, COPD, and history of tobacco abuse, who presented to the emergency department due to chest pain and severe back pain. The patient has had chronic back pain for 50 years approximately, but today it was significantly worse and her pain was relieved with morphine and nitroglycerin in the hospital emergency room. For further details, please see the admitting history and physical written by DENICE Esqueda. Of note, her blood pressure upon arrival to the emergency department was 226/80. On day of discharge, it was still elevated with blood pressures of 167/50 despite already being on 5 mg of lisinopril. Therefore, this was increased to 10 mg on the morning of discharge after this above reading. During her chemical stress test, she did again experience symptoms including nausea, headache, and chest pain; however, the cardiac portion of her stress test was negative and these symptoms did get better after 15 mg of IV hydralazine in total. For unclear reasons, it was decided by Nuclear Medicine to perform a 2-day nuclear stress test on this patient. Ultimately, her stress test was low risk per the nuclear read as well as by the cardiac read. She had resolution of her chest pain on 01/13/19 and her back pain was to her baseline. I believe that her chest pain was secondary to hypertensive urgency. She did not experience any visual changes during her hospital stay and as previously mentioned her pain was relieved with hydralazine and when her blood pressure was improved. Her TSH was elevated and her total levothyroxine dose was increased to 225 mcg. On day of discharge, the patient is feeling well. She denies nausea, abdominal pain, difficulty breathing, or chest pain. She feels her chronic back pain is now at the baseline. She denies visual changes. She has some blurred vision due to cataracts at baseline and denies scotoma and severe headache. It was brought to my attention by nursing staff that the patient had significant erythema under her abdominal folds consistent with candidiasis, and nystatin was started during hospital stay. PHYSICAL EXAMINATION ON THE DAY OF DISCHARGE: General: Obese, elderly white female, lying in hospital bed, appearing comfortable, in no acute distress. Eyes: PERRL. Sclerae anicteric. ENT: Mucous membranes are moist. Neck: Supple. Lungs: Clear to auscultation throughout. Cardio: Regular rate and rhythm without murmurs, rubs, or gallops. Abdomen: Soft, nontender, nondistended. Extremities: No clubbing, cyanosis, or edema. Skin: Erythema to abdominal folds. Neuro: The patient is alert and oriented x3. No focal deficits. Able to move all extremities. No tremors. DISCHARGE PLAN: Diet: Carbohydrate consistent diet. Activity: The patient may return to normal activity as tolerated. The patient will be set up with visiting nurses services at home. The patient was advised to check her blood pressure and record it on days when there are no VNS employed at her home. She should follow with Dr. Busch in 1 week. At this time, she should tell Dr. Busch the recordings of her blood pressure and further management of her hypertension can be discussed at this time. She should have repeat TSH in 4 to 6 weeks and her levothyroxine should be adjusted as needed. She was advised to return to the emergency department service for severe chest pain, difficulty breathing, visual changes, severe headache, or one -sided numbness, weakness, tingling, slurred speech, or facial drooping. DISCHARGE MEDICATIONS: New medications: 1. Lisinopril 10 mg p.o. daily. 2. Levothyroxine 225 mcg p.o. daily. 3. Nystatin powder 1 application topically t.i.d. Continued home medication: 1. Insulin glargine 25 units subcu daily. 2. Loperamide 2 mg p.o. b.i.d. p.r.n. diarrhea. 3. Trazodone 50 mg p.o. at bedtime. 4. Crestor 20 mg p.o. daily. 5. Nabumetone 750 mg p.o. b.i.d. 6. Multivitamin 1 tab p.o. daily. 7. Atenolol 50 mg p.o. daily. 8. Aspirin 81 mg p.o. daily. CONDITION ON DISCHARGE: Stable. DISPOSITION: Home. TIME SPENT: Approximately 35 minutes was spent on this discharge, approximately half that time spent at the bedside evaluating the patient, discussing the plan of care. DENICE DIETZ [id number]/[facility] #: [id number] [place]
== END 2019-01-14 12:47 | disposition home or self-care (01) ==
LOC: ED 12:35 → MEDTELE 17:30
PROVIDERS: ADMIT Internal Medicine; ATTEND Internal Medicine
DX: R07.9 Chest pain, unspecified (principal); I16.0 Hypertensive urgency; M54.9 Dorsalgia, unspecified; G89.29 Other chronic pain; E78.5 Hyperlipidemia, unspecified; J44.9 Chronic obstructive pulmonary disease, unspecified; K21.9 Gastro-esophageal reflux disease without esophagitis; E03.9 Hypothyroidism, unspecified; M19.90 Unspecified osteoarthritis, unspecified site; Z79.82 Long term (current) use of aspirin; Z79.899 Other long term (current) drug therapy; Z87.891 Personal history of nicotine dependence; E11.9 Type 2 diabetes mellitus without complications; Z79.4 Long term (current) use of insulin; Z88.2 Allergy status to sulfonamides; Z23 Encounter for immunization
CPT/HCPCS: 36415; 71275; 72131; 74174; 78452; 80053; 80061; 83036; 84439; 84443; 84484; 85025; 85652; 86140; 90471; 90732; 93005; 93017; 93306; 93880; 96372; 96374; 96375; 99284; A9270-GY; A9502; G0009; G0378; J0280; J0360; J1644; J2270; J2785; Q9967

== ENCOUNTER 2019-04-30 17:59 | Emergency (ER) | payer MEDICARE, MEDICAID ==
[2019-04-30] MEDS ORDERED: Ibuprofen TAB* 600 MG PO ONE (19:00)
--- NOTE | 2019-04-30 19:03 | ED ---
Back Pain - HPI Summary HPI Summary: 74-year-old female presents to the emergency Department today with chief complaint of 6/10 back pain which radiates up her spine to her head and gives her headaches which she has been experiencing for 2 years. Patient believes her symptoms are due to CT which she had in the 60s. Patient also believes it could be from an epidural she had at that time as well with her oldest child. Patient denies recent trauma such as falls or car accidents. Patient states she has no radiculopathy or weakness. Patient has full range motion of the neck area and patient is able to ambulate with a cane. Patient denies any recent fevers. Patient otherwise feels well and denies fever, chest pain, abdominal pain, pain with urination, headache, changes in vision, nausea, vomiting, diarrhea. - History of Current Complaint Chief Complaint: EDBackInjuryPain Stated Complaint: BACK PAIN Time Seen by Provider: 04/30/19 18:42 Hx Obtained From: Patient Onset/Duration: Gradual Onset Timing: Intermittent Severity Initially: Mild Severity Currently: Mild Pain Intensity: 3 Pain Scale Used: 0-10 Numeric Character: Aching Aggravating Symptom(s): Movement, Lifting, Bending Alleviating Symptom(s): Rest Associated Signs And Symptoms: Negative: Redness, Bruising, Fever, Weakness, Bladder Incontinence, Bowel Incontinence - Allergies/Home Medications Allergies/Adverse Reactions: Allergies Allergy/AdvReac Type Severity Reaction Status Date / Time Adhesive Tape Allergy Rash Verified 01/12/19 15:20 codeine Allergy Hives Verified 01/12/19 15:20 latex Allergy Hives Verified 01/12/19 15:20 Sulfa (Sulfonamide Allergy Hives Verified 01/12/19 15:20 Antibiotics) Home Medications: Home Medications Atenolol TAB* [Tenormin TAB* 25 MG] 50 mg PO DAILY 03/15/14 [History Confirmed 01/12/19] Levothyroxine TAB* [Synthroid TAB*] 200 mcg PO DAILY 06/25/15 [History Confirmed 01/12/19] Aspirin 81 mg CHEW TAB* 81 mg PO DAILY 02/01/18 [History Confirmed 01/12/19] Insulin Glargine,Hum.rec.anlog [Lantus Solostar 100 units/ml 3 ml x 5 PENS] 25 units SUBCUT DAILY #1 box 02/03/18 [Rx Confirmed 01/12/19] Loperamide CAP* [Imodium CAP*] 2 mg PO BID PRN 01/12/19 [History Confirmed 01/12] Nabumetone TAB* [Relafen TAB*] 750 mg PO BID 01/12/19 [History Confirmed ] Rosuvastatin (NF) [Crestor (NF)] 20 mg PO DAILY 01/12/19 [History Confirmed ] Vit B Comp/C/FA/Iron Sulf/Neil [Stress Formula with Iron Tab] 1 each PO DAILY [History Confirmed 01/12/19] traZODone TAB* [Desyrel TAB*] 50 mg PO BEDTIME 01/12/19 [History Confirmed 01/12] Levothyroxine TAB* [Synthroid 25 MCG TAB*] 25 mcg PO QAM #30 tab 01/14/19 [Rx] Lisinopril TAB* [Prinivil TAB 10 MG*] 10 mg PO DAILY #30 tab 01/14/19 [Rx] Nystatin TOP POWDER* 1 applic TOPICAL TID #1 btl 01/14/19 [Rx] Cephalexin CAP* [Keflex CAP*] 500 mg PO BID #5 cap 03/03/19 [Rx] PMH/Surg Hx/FS Hx/Imm Hx Endocrine/Hematology History: Reports: Hx Diabetes, Hx Thyroid Disease Denies: Hx Anticoagulant Therapy Cardiovascular History: Reports: Hx Angina, Hx Hypercholesterolemia, Hx Hypertension, Other Cardiovascular Problems/Disorders - Hx "swollen feet", hx "mini strokes", hx of "balance issues" Denies: Hx Congestive Heart Failure, Hx Coronary Artery Disease, Hx Myocardial Infarction, Hx Pacemaker/ICD, Hx Valvular Heart Disease Respiratory History: Reports: Hx Asthma, Hx Chronic Obstructive Pulmonary Disease (COPD), Hx Sleep Apnea - NC 1.5 L at night, Other Respiratory Problems/ Disorders GI History: Reports: Hx Gastroesophageal Reflux Disease, Other GI Disorders - ESOPHAGUS "WEAK"-DIFF SWALLOWING PILLS AT TIMES History: Reports: Hx Kidney Infection, Other Problems/Disorders - KIDNEY INFECTIONS Denies: Hx Renal Disease Musculoskeletal History: Reports: Hx Arthritis, Hx Rheumatoid Arthritis, Hx Gout , Other Musculoskeletal History - ARTHRITIS, gout Sensory History: Reports: Hx Contacts or Glasses - At home Denies: Hx Legally Blind, Hx Deafness, Hx Hearing Aid Opthamlomology History: Reports: Hx Contacts or Glasses - At home Denies: Hx Legally Blind Neurological History: Reports: Hx Headaches - ONCE IN A WHILE, Hx Seizures - A CHILD, Hx Transient Ischemic Attacks (TIA) Denies: Hx Dementia Psychiatric History: Reports: Hx Depression, Hx Suicide Attempt - in the past- 1980, Hx Substance Abuse - in the past - Surgical History Surgery Procedure, Year, and Place: TONSILECTOMY. ADENOIDECTOMY. TUBAL LIGATION-[facility]. HYSTERECTOMY-[facility]. CHOLECYSTECTOMY-[facility]. PARTIAL THYROIDECTOMY LEFT- [facility] Hx Anesthesia Reactions: No - Immunization History Date of Tetanus Vaccine: UNKNOWN Date of Influenza Vaccine: 11/2017 Infectious Disease History: No Infectious Disease History: Denies: Hx Hepatitis, Hx Human Immunodeficiency Virus (HIV), Traveled Outside the [place] in Last 30 Days - Family History Known Family History: Positive: None - reviewed & noncontributory, Cardiac Disease - AAA - Social History Alcohol Use: None Alcohol Amount: former ETOH user Hx Substance Use: No Substance Use Type: Reports: None Hx Tobacco Use: Yes - quit 1985 Smoking Status (MU): Former Smoker Type: Cigarettes Amount Used/How Often: 2 PPD X 23 YEARS Have You Smoked in the Last Year: No Review of Systems Constitutional: Negative Eyes: Negative ENT: Negative Cardiovascular: Negative Respiratory: Negative Gastrointestinal: Negative Genitourinary: Negative Positive: Arthralgia, Myalgia Skin: Negative Neurological/Mental Status: Negative Psychological: Normal All Other Systems Reviewed And Are Negative: Yes Physical Exam - Summary Physical Exam Summary: Patient is in no acute distress. Patient has no pain with palpation of the cervical, thoracic, lumbar spine. Patient has pain with palpation of the paraspinal muscles of the lumbar spine. There is no ecchymosis, deformity, erythema. Negative straight leg raise. Triage Information Reviewed: Yes Vital Signs On Initial Exam: Initial Vitals Temp Pulse Resp BP Pulse Ox 98.4 F 76 20 229/78 96 04/30/19 18:18 04/30/19 18:18 04/30/19 18:18 04/30/19 18:18 04/30/19 18:18 Vital Signs Reviewed: Yes Appearance: Positive: Well-Appearing, No Pain Distress, Well-Nourished Skin: Positive: Warm, Skin Color Reflects Adequate Perfusion Eyes: Positive: EOMI, RENAN ENT: Positive: Hearing grossly normal Respiratory/Lung Sounds: Positive: Clear to Auscultation, Breath Sounds Present Cardiovascular: Positive: RRR, S1, S2 Abdomen Description: Positive: Nontender, Soft Bowel Sounds: Positive: Present Musculoskeletal: Positive: Strength/ROM Intact Neurological: Positive: Sensory/Motor Intact, Alert, Oriented to Person Place, Time, Normal Gait, Facial Symmetry, Speech Normal Psychiatric: Positive: Normal, Affect/Mood Appropriate AVPU Assessment: Alert Procedures - Sedation Patient Received Moderate/Deep Sedation with Procedure: No Diagnostics - Vital Signs Vital Signs Temp Pulse Resp BP Pulse Ox 04/30/19 18:18 98.4 F 76 20 229/78 96 - Laboratory Lab Statement: Any lab studies that have been ordered have been reviewed, and results considered in the medical decision making process. Back Pain Course/Dx - Course Course Of Treatment: Patient was evaluated in the emergency department today for back pain. Vitals noted and stable. Patient's physical exam and history is consistent with mechanical back pain. No evidence of cauda equina or epidural abscess. Patient discharged to outpatient follow-up. Patient is ambulatory. - Diagnoses Differential Diagnosis/HQI/PQRI: Positive: Cauda Equina Syndrome, Compressive Cord Syndrome, Epidural Abscess, Fracture, Herniated Disc, Strain, Sprain Provider Diagnoses: Strain of lumbar paraspinal muscle Discharge ED - Sign-Out/Discharge Documenting (check all that apply): Patient Departure - Discharge Plan Condition: Stable Disposition: HOME Patient Education Materials: Back Pain (ED) Referrals: Neno Busch MD [Primary Care Provider] - 3 Days Additional Instructions: You were seen in the emergency department today for back pain. Please follow up with your primary care physician in 5 days for further evaluation and management of your injury. Please take for your symptoms: * Ibuprofen 600mg three times daily with meals for pain. (Anti Inflammatory) * Flexeril 10mg every 6 hours as needed for pain. (Muscle relaxant) Most people with an episode of low back pain do not have a serious medical problem, and can try simple treatments such as: ?Staying active The best thing you can do is to stay as active as possible. People with low back pain recover faster if they stay active. If your pain is severe, you might need to rest for a day or 2. But it's important to get back to walking and moving as soon as possible. While you should avoid heavy lifting and sports while your back hurts, try to keep doing your normal daily activities. ?Heat Some people find that it helps to use a heating pad or heated wrap. Be careful to avoid high heat settings to prevent skin fuentes. Spinal manipulation This is when a chiropractor, physical therapist, or other professional moves or "adjusts" the joints of your back. If you want to try this, talk to your doctor or nurse first. Acupuncture This is when someone who knows traditional [place] medicine inserts tiny needles into your body to block pain signals. Massage While back pain usually goes away within a few weeks, some people do continue to have pain for longer. In this case, additional treatments might include: ?Self care This involves being aware of your pain. While you should rest when you need to, it's important to stay active as much as you can. Things like applying heat and doing gentle stretches can help you feel better, too. ?Physical therapy A physical therapist is an exercise expert who can teach you stretches and movements to help strengthen your muscles. The goal is to relieve pain but also help you get back to your normal activities. Exercises you can try include walking, swimming, or using an exercise bike. Some people also find that Juan Chi or yoga can help with their back pain. Finding activities you enjoy can help you stay active. ?Reducing stress Some people find that it helps to try something called "mindfulness-based stress reduction." This involves going to a group program to practice relaxation and meditation. If your back pain is making you feel anxious or depressed, talk to your doctor or nurse. There are other treatments that can help with these problems. Only a small number of people end up needing surgery to treat back pain. - Billing Disposition and Condition Condition: STABLE Disposition: Home
--- OUTSIDE RECORDS SUMMARY | 2019-04-30 19:21 | XMS REPORT ---
:1945 Author Organization [facility] Care Team Providers Name Role Phone Unavailable Unavailable Unavailable Problems Condition Condition Condition Status Onset Resolution Last Treating Comments Name Details Category Date Date Treatment Clinician Date Hypertensiv Hypertensiv Diagnosis Active 2018-02 Zakia e heart e heart 03-14 Beatrice disease disease [id number] without without heart heart failure failure Type 2 Type 2 Diagnosis Active 2018-02 Zakia diabetes diabetes 03-14 Beatrice mellitus mellitus [id number] without without complicatio complicatio ns ns Postprocedu Postprocedu Diagnosis Active 2018-02 Zakia ral ral 03-14 Beatrice hypothyroid hypothyroid [id number] ism ism Other Other Diagnosis Active 2018-02 Zakia interverteb interverteb 03-14 Beatrice ral disc ral disc [id number] degeneratio degeneratio n, lumbar n, lumbar region region 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 03-14 Beatrice pulmonary pulmonary [id number] disease, disease, unspecified unspecified Candidiasis Candidiasis Diagnosis Active 2018-02 Zakia , , 03-14 Beatrice unspecified unspecified [id number] Hyperlipide Hyperlipide Diagnosis Active Zakia abdullahi, abdullahi, Beatrice unspecified unspecified [id number] 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, terolemia, [id number] unspecified unspecified Gastro-esop Gastro-esop Diagnosis Active Zakia hageal hageal Beatrice reflux reflux [id number] disease disease without without esophagitis esophagitis Unspecified Unspecified Diagnosis Active Zakia osteoarthri osteoarthri Beatrice tis, tis, [id number] unspecified unspecified site site Anemia, Anemia, Diagnosis Active Zakia unspecified unspecified Beatrice [id number] Dysphagia, Dysphagia, Diagnosis Active Zakia unspecified unspecified Beatrice [id number] Morbid Morbid Diagnosis Active Zakia (severe) (severe) Beatrice obesity due obesity due [id number] 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 Zakia (current) (current) Beatrice use of use of [id number] insulin insulin Body mass Body mass Diagnosis Active Zakia index (BMI) index (BMI) Beatrice 45.0-49.9, 45.0-49.9, [id number] adult adult FPC 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 Zakia (current) (current) Beatrice use of use of [id number] aspirin aspirin Personal Personal Diagnosis Active Zakia history of history of Beatrice nicotine nicotine [id number] dependence dependence Pain frequent Pain Mgmt Resolve 2018-022019-03-08 Ping pain d 03-20 10:44:00 [place] 09:30: [id number] 00 Cardio hypertensio Cardiovasc Active 2018-02 Ping n ular 03-20 [place] 09:30: [id number] 00 Respiratory dyspnea Respirator Active 2018-02 Ping present y 03-20 [place] 09:30: [id number] 00 Respiratory oxygen Respirator Active 2018-02 Ping treatments y 03-20 [place] in home 09:30: [id number] 00 Endo/Trae anti-coagul Endo/Trae Active 2018-02 Ping ation 03-20 [place] therapy 09:30: [id number] 00 Nutrition knowledge/s Nutrition Resolve 2018-022019-03-08 Ping kill d 03-20 10:44:00 [place] deficit: pt 09:30: [id number] 00 Nutrition nutritional Nutrition Resolve 2018-022019-03-08 Ping restriction d 03-20 10:44:00 [place] s 09:30: [id number] 00 Neuro confusion Neuro/Emot Active 2018-02 Ping present ion 03-20 [place] 09:30: [id number] 00 Neuro impaired Neuro/Emot Active 2018-02 Ping decision-ma ion 03-20 [place] promise 09:30: [id number] 00 Activity ADL Activity Active 2018-02 Ping assistance 03-20 [place] required 09:30: [id number] 00 Activity self-care Activity Active 2018-02 Ping deficit 03-20 [place] 09:30: [id number] 00 Safety structural Safety Resolve 2018-022019-03-08 Ping barriers d 03-20 10:44:00 [place] present 09:30: [id number] 00 Safety sanitation Safety Resolve 2018-022019-03-08 Ping hazards d 03-20 10:44:00 [place] present 09:30: [id number] 00 Safety fall risk Safety Resolve 2018-022019-03-08 Ping factor d 03-20 10:44:00 [place] present 09:30: [id number] 00 Safety risk for Safety Resolve 2018-022019-03-08 Ping hospitaliza d 03-20 10:44:00 [place] tion 09:30: [id number] 00 Medication oral med Meds Active 2018-02 Ping assistance 03-20 Mallika required 09:30: [id number] 00 Medication injectable Meds Active 2018-02 Ping med 03-20 [place] assistance 09:30: [id number] required 00 Musculoskel transfer Musculoske Resolve 2018-022019-03-08 Ping etal assistance letal d 03-20 10:44:00 [place] required 09:30: [id number] 00 Musculoskel requires Musculoske Resolve 2018-022019-03-08 Ping etal human letal d 03-20 10:44:00 [place] assist to 09:30: [id number] leave home 00 24 Hr Diet nutrition NT: 24Hr Resolve 2018-022019-03-07 Randee intake Diet d 2- 15:10:00 Calvin deficit 10:20: [id number] 00 24 Hr Diet knowledge/s NT: 24Hr Resolve 2018-022019-02-11 Randee kill Diet d 2-20 10:20:00 Calvin deficit - 10:20: [id number] pt 00 Nutritional food NT: Resolve 2018-022019-02-11 Randee Barrier storage/pre Barriers d 2-20 10:20:00 Calvin p deficit 10:20: [id number] Nutritional eating NT: Resolve 2018-022019-02-11 Randee Barrier difficultie Barriers d 2-20 10:20:00 Calvin s present 10:20: [id number] 00 24 Hr Diet knowledge/s NT: 24Hr Resolve 2019-03-07 Zakia kill Diet d 03-03 15:10:00 Beatrice deficit - 12:57: [id number] pt 00 Nutritional eating NT: Resolve 2019-03-07 Randee Barrier difficultie Barriers d 03-07 15:10:00 Calvin s present 15:10: [id number] Nutritional food NT: Resolve 2019-03-07 Randee Barrier storage/pre Barriers d 03-07 15:10:00 Calvin p deficit 15:10: [id number] 00 Allergies, Adverse Reactions, Alerts Allergy Allergy Type Status Severity Reaction(s) Onset Inactive Treating Comments Name Date Date Clinician Adhesive Unknown Active Unknown Reaction 2018-02 Interface Tape Unknown 03-15 codeine Base Active Unknown Reaction 2018-02 Unknown Ingredient Unknown 03-15 latex Base Active Unknown Reaction 2018-02 Interface Ingredient Unknown 03-15 Sulfa Unknown Active Unknown Reaction 2018-02 Interface (Sulfonami Unknown 03-15 de Antibiotic s) Medications Ordered Filled Start Stop Current Ordering Indication Dosage Frequency Signature Comments Components Medication Medication Date Date Medication? Clinician (SIG) Name Name atenolol 25 atenolol 25 2018-02 Yes Midura Unknown Unknown mg tablet mg tablet 03-20 Neno CENTENO aspirin 81 aspirin 81 2018-02 Yes Midura Unknown Unknown mg chewable mg chewable 03-20 Neno CENTENO tablet tablet rosuvastati rosuvastati 2018-02 Yes Midura Unknown Unknown n 20 mg n 20 mg 03-20 Neno CETNENO tablet tablet loperamide loperamide 2018-02 Yes Midura Unknown Unknown 2 mg 2 mg 03-20 Neno CENTENO capsule capsule Vit B Vit B 2018-02 Yes Midura Unknown Unknown Comp/C/Fa/I Comp/C/Fa/I 03-20 Neno CENTENO Sulf/Neil Sulf/Neil levothyroxi levothyroxi 2018-02 Yes Midura Unknown Unknown ne 200 mcg ne 200 mcg 03-20 Neno CENTENO tablet tablet levothyroxi levothyroxi 2018-02 Yes Midura Unknown Unknown ne 25 mcg ne 25 mcg 03-20 Neno CENTENO tablet tablet lisinopril lisinopril 2018-02 Yes Midura Unknown Unknown 10 mg 10 mg 03-20 Neno CENTENO tablet tablet nystatin nystatin 2018-02 Yes Midura Unknown Unknown (bulk) 50 (bulk) 50 03-20 Neno CENTENO million million unit powder unit powder Lantus Lantus 2018-02 Yes Midura Unknown Unknown Solostar Solostar 03-20 Neno CENTENO U-100 U-100 Insulin 100 Insulin 100 unit/mL (3 unit/mL (3 mL) mL) subcutaneou subcutaneou s pen s pen traZODone traZODone 2018-02 Yes Midura Unknown Unknown 50 mg 50 mg 03-20 Neno CENTENO tablet tablet nabumetone nabumetone 2018-02 Yes Midura Unknown Unknown 750 mg 750 mg 03-20 Neno CENTENO tablet tablet Oxygen Oxygen 2018-02 Yes Midura Unknown Unknown 03-20 Neno CENTENO Vital Signs Vital Name Observation Time Observation Value Comments SYSTOLIC mm[Hg] 2019-03-08 18:09:52 140 mm[Hg] mm[Hg] Method: Sit SYSTOLIC mm[Hg] 2019-01-18 18:09:03 150 mm[Hg] mm[Hg] Method: Stand DIASTOLIC mm[Hg] 2019-03-08 18:09:52 80 mm[Hg] mm[Hg] Method: Sit DIASTOLIC mm[Hg] 2019-01-18 18:09:03 80 mm[Hg] mm[Hg] Method: Stand PULSE 2019-03-08 18:09:52 65 /min /min RESP RATE 2019-03-08 18:09:52 18 /min /min TEMP 2019-03-08 18:09:52 98.1 [degF] Procedures This patient has no known procedures. Results Test Description Test Time Test Comments Text Results Atomic Results Result Comments Whole blood glucose 2019-01-13 11:09:00 Identifier 2339-0 Result Unknown measurement (mass/volume) Time 2019-01-13 11:09:00 Test Item Value Reference Range Comments Whole blood glucose measurement (mass/volume) (test code 246 mg/dL Unknown Unknown F = 2339-0) Ordering Physician UnknownSerum or plasma high density lipoprotein (HDL) cholesterol [id number] 06:10:00Identifier 5-9 Result Time 06:10:00Unknown Test Item Value Reference Range Comments Serum or plasma high density lipoprotein 28.5 mg/dL Unknown Unknown F (HDL) cholesterol measurement (test code = 2085-9) Ordering Physician UnknownSerum or plasma low density lipoprotein (LDL) cholesterol measurement (mass/volume)2019-01-13 06:10:00Identifier 2089-1 Result Time 2019-01-13 06:10:00Unknown Test Item Value Reference Range Comments Serum or plasma low density lipoprotein 91 mg/dL Unknown Unknown F (LDL) cholesterol measurement (mass/volume) (test code = 2089-1) Ordering Physician UnknownSerum or plasma cholesterol measurement (mass/volume) 2019-01-13 06:10:00Identifier 2093-3 Result Time 2019-01-13 06:10:00Unknown Test Item Value Reference Range Comments Serum or plasma cholesterol measurement 182 mg/dL Unknown Unknown F (mass/volume) (test code = 2093-3) Ordering Physician UnknownSerum or plasma triglyceride measurement (mass/volume) 2019-01-13 06:10:00Identifier 2571-8 Result Time 2019-01-13 06:10:00Unknown Test Item Value Reference Range Comments Serum or plasma triglyceride measurement 315 mg/dL Unknown Unknown F (mass/volume) (test code = 2571-8) Ordering Physician UnknownSerum or plasma troponin i.cardiac measurement (mass/ volume)2019-01-12 21:54:00Identifier 55939-1 Result Time 2019-01-12 21:54: 00Unknown Test Item Value Reference Range Comments Serum or plasma troponin i.cardiac 0.01 ng/mL Unknown Unknown F measurement (mass/volume) (test code = 51883-5) Ordering Physician UnknownSerum or plasma alanine aminotransferase measurement ( enzymatic activity/volume)2019-01-12 13:20:00Identifier 1742-6 Result Time 01-12 13:20:00Unknown Test Item Value Reference Range Comments Serum or plasma alanine aminotransferase 11 U/L Unknown Unknown F measurement (enzymatic activity/volume) (test code = 1742-6) Ordering Physician UnknownSerum or plasma albumin/globulin mass [id number] 13:20:00Identifier 1759-0 Result Time 2019-01-12 13:20:00Unknown Test Item Value Reference Range Comments Serum or plasma albumin/globulin mass ratio 1.2 Unknown Unknown F (test code = 1759-0) Ordering Physician UnknownBlood hemoglobin A1C/total hemoglobin By [id number]- 20 13:20:00Identifier 09713-6 Result Time 2019-01-12 13:20:00Unknown Test Item Value Reference Range Comments Blood hemoglobin A1C/total hemoglobin By HPLC 7.5 % Unknown Unknown F (test code = 98116-6) Ordering Physician UnknownSerum or plasma calcium measurement (mass/volume)01-12 13:20:00Identifier 18655-8 Result Time 2019-01-12 13:20:00Unknown Test Item Value Reference Range Comments Serum or plasma calcium measurement 10.8 mg/dL Unknown Unknown F (mass/volume) (test code = 87540-2) Ordering Physician UnknownSerum or plasma aspartate aminotransferase measurement (enzymatic activity/volume)2019-01-12 13:20:00Identifier 1919-09 Result Time 2019-01-12 13:20:00Unknown Test Item Value Reference Range Comments Serum or plasma aspartate aminotransferase 12 U/L Unknown Unknown F measurement (enzymatic activity/volume) (test code = 1920-8) Ordering Physician UnknownSerum or plasma total bilirubin measurement (mass/ volume)2019-01-12 13:20:00Identifier 1974- Result Time 2019-01-12 13:20: 00Unknown Test Item Value Reference Range Comments Serum or plasma total bilirubin 0.30 mg/dL Unknown Unknown F measurement (mass/volume) (test code = 1974-03) Ordering Physician UnknownSerum or plasma C reactive protein measurement (mass/ volume)2019-01-12 13:20:00Identifier 1987-06 Result Time 2019-01-12 13:20: 00Unknown Test Item Value Reference Range Comments Serum or plasma C reactive protein 13.89 mg/L Unknown Unknown F measurement (mass/volume) (test code = 1987-06) Ordering Physician UnknownSerum or plasma carbon dioxide, total measurement ( moles/volume)2019-01-12 13:20:00Identifier 2027-10 Result Time 2019-01-12 13:20: 00Unknown Test Item Value Reference Range Comments Serum or plasma carbon dioxide, total 29 mmol/L Unknown Unknown F measurement (moles/volume) (test code = 2027-10) Ordering Physician UnknownSerum or plasma chloride measurement (moles/volume) 2019-01-12 13:20:00Identifier Result Time 2019-01-12 13:20:00Unknown Test Item Value Reference Range Comments Serum or plasma chloride measurement 106 mmol/L Unknown Unknown F (moles/volume) (test code = 2075-0) Ordering Physician UnknownSerum or plasma creatinine measurement (mass/volume) 2019-01-12 13:20:00Identifier 2160-0 Result Time 2019-01-12 13:20:00Unknown Test Item Value Reference Range Comments Serum or plasma creatinine measurement 0.72 mg/dL Unknown Unknown F (mass/volume) (test code = 2160-0) Ordering Physician UnknownSerum glucose measurement (mass/volume)2019-01-12 13: 20:00Identifier 2345-7 Result Time 2019-01-12 13:20:00Unknown Test Item Value Reference Range Comments Serum glucose measurement (mass/volume) 158 mg/dL Unknown Unknown F (test code = 2345-7) Ordering Physician UnknownSerum or plasma potassium measurement (moles/volume) 2019-01-12 13:20:00Identifier 2823-3 Result Time 2019-01-12 13:20:00Unknown Test Item Value Reference Range Comments Serum or plasma potassium measurement 4.4 mmol/L Unknown Unknown F (moles/volume) (test code = 2823-3) Ordering Physician UnknownSerum total protein measurement (mass/volume) 13:20:00Identifier 2885-2 Result Time 2019-01-12 13:20:00Unknown Test Item Value Reference Range Comments Serum total protein measurement 6.6 g/dL Unknown Unknown F (mass/volume) (test code = 2885-2) Ordering Physician UnknownSerum or plasma sodium measurement (moles/volume)01-12 13:20:00Identifier 2951-2 Result Time 2019-01-12 13:20:00Unknown Test Item Value Reference Range Comments Serum or plasma sodium measurement 137 mmol/L Unknown Unknown F (moles/volume) (test code = 2951-2) Ordering Physician UnknownSerum or plasma thyroid stimulating hormone (TSH) measurement (units/volume)2019-01-12 13:20:00Identifier 3016-3 Result Time 01-12 13:20:00Unknown Test Item Value Reference Range Comments Serum or plasma thyroid stimulating 5.87 mcIU/mL Unknown Unknown F hormone (TSH) measurement (units/volume) (test code = 3016-3) Ordering Physician UnknownSerum or plasma thyroxine (T4) free measurement (mass/ volume)2019-01-12 13:20:00Identifier 3024-7 Result Time 2019-01-12 13:20: 00Unknown Test Item Value Reference Range Comments Serum or plasma thyroxine (T4) free 0.75 ng/dL Unknown Unknown F measurement (mass/volume) (test code = 3024-7) Ordering Physician UnknownSerum or plasma urea nitrogen measurement (mass/volume )2019-01-12 13:20:00Identifier 3094-0 Result Time 2019-01-12 13:20:00Unknown Test Item Value Reference Range Comments Serum or plasma urea nitrogen measurement 22 mg/dL Unknown Unknown F (mass/volume) (test code = 3094-0) Ordering Physician UnknownSerum or plasma urea nitrogen/creatinine suhgx0485-13- 20 13:20:00Identifier 3097-3 Result Time 2019-01-12 13:20:00Unknown Test Item Value Reference Range Comments Serum or plasma urea nitrogen/creatinine 30.6 Unknown Unknown F ratio (test code = 3097-3) Ordering Physician UnknownAutomated blood platelet mean volume ktjrgfwdloz2135- 11-20 13:20:00Identifier 29145-5 Result Time 2019-01-12 13:20:00Unknown Test Item Value Reference Range Comments Automated blood platelet mean volume 7.9 fL Unknown Unknown F measurement (test code = 23702-0) Ordering Physician UnknownSerum or plasma anion urc0810-31-27 13:20: 00Identifier 21626-8 Result Time 2019-01-12 13:20:00Unknown Test Item Value Reference Range Comments Serum or plasma anion gap (test code = 2 mmol/L Unknown Unknown F 79729-5) Ordering Physician UnknownAutomated blood leukocytes count corrected for nucleated erythrocytes (number/volume)2019-01-12 13:20:00Identifier 91428-4 Result Time 2019-01-12 13:20:00Unknown Test Item Value Reference Range Comments Automated blood leukocytes count 7.6 10^3/uL Unknown Unknown F corrected for nucleated erythrocytes (number/volume) (test code = 00232-5) Ordering Physician UnknownAutomated blood nucleated erythrocytes ouazttdkw3933- 11-20 13:20:00Identifier 58104-1 Result Time 2019-01-12 13:20:00Unknown Test Item Value Reference Range Comments Automated blood nucleated erythrocytes 0.0 Unknown Unknown F detection (test code = 86401-1) Ordering Physician UnknownErythrocyte sedimentation rate by Westergren [id number] 13:20:00Identifier 4537-7 Result Time 2019-01-12 13:20: 00Unknown Test Item Value Reference Range Comments Erythrocyte sedimentation rate by 34 mm/Hr Unknown Unknown F Westergren method (test code = 4537-7) Ordering Physician UnknownAutomated blood hematocrit (percentage)2019-01-12 13: 20:00Identifier 4544-3 Result Time 2019-01-12 13:20:00Unknown Test Item Value Reference Range Comments Automated blood hematocrit (percentage) (test 38 % Unknown Unknown F code = 4544-3) Ordering Physician UnknownEstimated glomerular filtration rate (GFR) non- Riybjaml8050-97-10 13:20:00Identifier 86417-0 Result Time 2019-01-12 13: 20:00Unknown Test Item Value Reference Range Comments Estimated glomerular filtration rate (GFR) 79.2 Unknown Unknown F non- (test code = 58500-0) Ordering Physician UnknownAutomated blood monocytes/100 eqduznlqjz0254-52-67 13: 20:00Identifier 5905-5 Result Time 2019-01-12 13:20:00Unknown Test Item Value Reference Range Comments Automated blood monocytes/100 leukocytes 6.2 % Unknown Unknown F (test code = 5905-5) Ordering Physician UnknownSerum or plasma albumin measurement by bromocresol green (BCG) dye binding method ([id number] 13:20:00Identifier 84701-6 Result Time 2019-01-12 13:20:00Unknown Test Item Value Reference Range Comments Serum or plasma albumin measurement by 3.6 g/dL Unknown Unknown F bromocresol green (BCG) dye binding method (ma (test code = 82815-7) Ordering Physician UnknownSerum or plasma alkaline phosphatase measurement ( enzymatic activity/volume)2019-01-12 13:20:00Identifier 6768-6 Result Time 01-12 13:20:00Unknown Test Item Value Reference Range Comments Serum or plasma alkaline phosphatase 100 U/L Unknown Unknown F measurement (enzymatic activity/volume) (test code = 6768-6) Ordering Physician UnknownAutomated blood basophil count (number/volume) 13:20:00Identifier 704-7 Result Time 2019-01-12 13:20:00Unknown Test Item Value Reference Range Comments Automated blood basophil count 0.0 10^3/ul Unknown Unknown F (number/volume) (test code = 704-7) Ordering Physician UnknownAutomated blood basophils/100 [id number] 13: 20:00Identifier 706-2 Result Time 2019-01-12 13:20:00Unknown Test Item Value Reference Range Comments Automated blood basophils/100 leukocytes 0.6 % Unknown Unknown F (test code = 706-2) Ordering Physician UnknownAutomated blood eosinophil count (number/volume)01-12 13:20:00Identifier 711-2 Result Time 2019-01-12 13:20:00Unknown Test Item Value Reference Range Comments Automated blood eosinophil count 0.2 10^3/ul Unknown Unknown F (number/volume) (test code = 711-2) Ordering Physician UnknownAutomated blood eosinophils/100 [id number] 13:20:00Identifier 713-8 Result Time 2019-01-12 13:20:00Unknown Test Item Value Reference Range Comments Automated blood eosinophils/100 leukocytes 2.1 % Unknown Unknown F (test code = 713-8) Ordering Physician UnknownBlood hemoglobin measurement (mass/volume)2019-01-12 13:20:00Identifier 718-7 Result Time 2019-01-12 13:20:00Unknown Test Item Value Reference Range Comments Blood hemoglobin measurement 12.3 g/dL Unknown Unknown F (mass/volume) (test code = 718-7) Ordering Physician UnknownBlood lymphocytes automated count (number/volume)01-12 13:20:00Identifier 731-0 Result Time 2019-01-12 13:20:00Unknown Test Item Value Reference Range Comments Blood lymphocytes automated count 1.7 10^3/ul Unknown Unknown F (number/volume) (test code = 731-0) Ordering Physician UnknownAutomated blood lymphocytes/100 [id number] 13:20:00Identifier 736-9 Result Time 2019-01-12 13:20:00Unknown Test Item Value Reference Range Comments Automated blood lymphocytes/100 leukocytes 22.1 % Unknown Unknown F (test code = 736-9) Ordering Physician UnknownBlood monocytes automated count (number/volume)2018-12 13:20:00Identifier 742-7 Result Time 2019-01-12 13:20:00Unknown Test Item Value Reference Range Comments Blood monocytes automated count 0.5 10^3/ul Unknown Unknown F (number/volume) (test code = 742-7) Ordering Physician UnknownAutomated blood neutrophils/100 [id number] 13:20:00Identifier 770-8 Result Time 2019-01-12 13:20:00Unknown Test Item Value Reference Range Comments Automated blood neutrophils/100 leukocytes 69.0 % Unknown Unknown F (test code = 770-8) Ordering Physician UnknownBlood nucleated erythrocytes automated count (number/ volume)2019-01-12 13:20:00Identifier 771-6 Result Time 2019-01-12 13:20: 00Unknown Test Item Value Reference Range Comments Blood nucleated erythrocytes automated 0.0 10^3/ul Unknown Unknown F count (number/volume) (test code = 771-6) Ordering Physician UnknownAutomated blood platelet count (number/volume) 13:20:00Identifier 777-3 Result Time 2019-01-12 13:20:00Unknown Test Item Value Reference Range Comments Automated blood platelet count 187 10^3/uL Unknown Unknown F (number/volume) (test code = 777-3) Ordering Physician UnknownAutomated erythrocyte mean corpuscular hemoglobin ( mass per erythrocyte)2019-01-12 13:20:00Identifier 785-6 Result Time 2019-01-12 13:20:00Unknown Test Item Value Reference Range Comments Automated erythrocyte mean corpuscular 27 pg Unknown Unknown F hemoglobin (mass per erythrocyte) (test code = 785-6) Ordering Physician UnknownAutomated erythrocyte mean corpuscular hemoglobin concentration measurement (mass/[id number] 13:20:00Identifier 786-4 Result Time 2019-01-12 13:20:00Unknown Test Item Value Reference Range Comments Automated erythrocyte mean corpuscular 33 g/dL Unknown Unknown F hemoglobin concentration measurement (mass/vol (test code = 786-4) Ordering Physician UnknownAutomated erythrocyte mean corpuscular gbjehd9047-55- 20 13:20:00Identifier 787-2 Result Time 2019-01-12 13:20:00Unknown Test Item Value Reference Range Comments Automated erythrocyte mean corpuscular volume 82 fL Unknown Unknown F (test code = 787-2) Ordering Physician UnknownAutomated erythrocyte distribution width ixlle3124-59- 20 13:20:00Identifier 788-0 Result Time 2019-01-12 13:20:00Unknown Test Item Value Reference Range Comments Automated erythrocyte distribution width ratio 18 % Unknown Unknown F (test code = 788-0) Ordering Physician UnknownAutomated blood erythrocyte count (number/volume)01-12 13:20:00Identifier 789-8 Result Time 2019-01-12 13:20:00Unknown Test Item Value Reference Range Comments Automated blood erythrocyte count 4.61 10^6 /uL Unknown Unknown F (number/volume) (test code = 789-8) Ordering Physician UnknownCT biopsy [id number] 13:20:00Identifier [id number] Result Time 2019-01-12 13:20:00Unknown Test Item Value Reference Range Comments CT biopsy liver (test code = BAD3715) 5.3 10^3/ul Unknown Unknown F Ordering Physician Unknown
--- OUTSIDE RECORDS SUMMARY | 2019-04-30 19:21 | XMS REPORT ---
:1945 Author Organization [facility] Team Providers Name Role Phone Unavailable Unavailable Unavailable Problems Condition Condition Condition Status Onset Resolution Last Treating Comments Name Details Category Date Date Treatment Clinician Date Hypertensiv Hypertensiv Diagnosis Active 2018-02 Zakia e heart e heart 03-14 [place] disease disease [id number] without without heart heart failure failure Type 2 Type 2 Diagnosis Active 2018-02 Zakia diabetes diabetes 03-14 [place] mellitus mellitus [id number] without without complicatio complicatio ns ns Postprocedu Postprocedu Diagnosis Active 2018-02 Zakia ral ral 03-14 [place] hypothyroid hypothyroid [id number] ism ism Other Other Diagnosis Active 2018-02 Zakia interverteb interverteb 03-14 [place] ral disc ral disc [id number] degeneratio degeneratio n, lumbar n, lumbar region region 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 03-14 [place] pulmonary pulmonary [id number] disease, disease, unspecified unspecified Candidiasis Candidiasis Diagnosis Active 2018-02 Zakia , , 03-14 [place] unspecified unspecified [id number] Hyperlipide Hyperlipide Diagnosis Active Zakia abdullahi, abdullahi, [place] unspecified unspecified [id number] 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, terolemia, [id number] unspecified unspecified Gastro-esop Gastro-esop Diagnosis Active Zakia hageal hageal [place] reflux reflux [id number] disease disease without without esophagitis esophagitis Unspecified Unspecified Diagnosis Active Zakia osteoarthri osteoarthri [place] tis, tis, [id number] unspecified unspecified site site Anemia, Anemia, Diagnosis Active Zakia unspecified unspecified Beatrice [id number] Dysphagia, Dysphagia, Diagnosis Active Zakia unspecified unspecified [place] [id number] Morbid Morbid Diagnosis Active Zakia (severe) (severe) [place] obesity due obesity due [id number] to excess 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 Diagnosis Active Zakia (current) (current) [place] use of use of [id number] insulin insulin Body mass Body mass Diagnosis Active Zakia index (BMI) index (BMI) Beatrice 45.0-49.9, 45.0-49.9, [id number] adult adult USP USP Diagnosis Active Zakia (current) (current) [place] use of use of [id number] aspirin aspirin Personal Personal Diagnosis Active Zakia history of history of [place] nicotine nicotine [id number] dependence dependence Pain frequent Pain Mgmt Resolve 2018-022019-03-08 Ping pain d 03-20 10:44:00 [place] 09:30: [id number] 00 Cardio hypertensio Cardiovasc Active 2018-02 Ping n ular 03-20 [place] 09:30: [id number] 00 Respiratory dyspnea Respirator Active 2018-02 Ping present y 03-20 [place] 09:30: [id number] 00 Respiratory oxygen Respirator Active 2018-02 Ping treatments y 03-20 [place] in home 09:30: [id number] 00 Endo/Rtae anti-coagul Endo/Trae Active 2018-02 Ping ation 03-20 [place] therapy 09:30: [id number] 00 Nutrition knowledge/s Nutrition Resolve 2018-022019-03-08 Ping kill d 03-20 10:44:00 [place] deficit: pt 09:30: [id number] 00 Nutrition nutritional Nutrition Resolve 2018-022019-03-08 Ping restriction d 03-20 10:44:00 [place] s 09:30: [id number] 00 Neuro confusion Neuro/Emot Active 2018-02 Ping present ion 03-20 [place] 09:30: [id number] 00 Neuro impaired Neuro/Emot Active 2018-02 Ping decision-ma ion 03-20 [place] promise 09:30: [id number] 00 Activity ADL Activity Active 2018-02 Ping assistance 03-20 [place] required 09:30: [id number] 00 Activity self-care Activity Active 2018-02 Ping deficit 03-20 [place] 09:30: [id number] 00 Safety structural Safety Resolve 2018-022019-03-08 Ping barriers d 03-20 10:44:00 [place] present 09:30: [id number] 00 Safety sanitation Safety Resolve 2018-022019-03-08 Ping hazards d 03-20 10:44:00 [place] present 09:30: [id number] 00 Safety fall risk Safety Resolve 2018-022019-03-08 Ping factor d 03-20 10:44:00 [place] present 09:30: [id number] 00 Safety risk for Safety Resolve 2018-022019-03-08 Ping hospitaliza d 03-20 10:44:00 [place] tion 09:30: [id number] 00 Medication oral med Meds Active 2018-02 Ping assistance 03-20 [place] required 09:30: [id number] 00 Medication injectable Meds Active 2018-02 Ping med 03-20 [place] assistance 09:30: [id number] required 00 Musculoskel transfer Musculoske Resolve 2018-022019-03-08 Ping etal assistance letal d 03-20 10:44:00 [place] required 09:30: [id number] 00 Musculoskel requires Musculoske Resolve 2018-022019-03-08 Ping etal human letal d 03-20 10:44:00 [place] assist to 09:30: [id number] leave home 00 24 Hr Diet nutrition NT: 24Hr Resolve 2018-022019-03-07 [place] intake Diet d 2- 15:10:00 [place] deficit 10:20: [id number] 00 24 Hr Diet knowledge/s NT: 24Hr Resolve 2018-022019-02-11 [place] kill Diet d 2-20 10:20:00 [place] deficit - 10:20: [id number] pt 00 Nutritional food NT: Resolve 2018-022019-02-11 [place] Barrier storage/pre Barriers d 2-20 10:20:00 [place] p deficit 10:20: [id number] Nutritional eating NT: Resolve 2018-022019-02-11 [place] Barrier difficultie Barriers d 2-20 10:20:00 [place] s present 10:20: [id number] 00 24 Hr Diet knowledge/s NT: 24Hr Resolve 2019-03-07 [place] kill Diet d 03-03 15:10:00 [place] deficit - 12:57: [id number] pt 00 Nutritional eating NT: Resolve 2019-03-07 [place] Barrier difficultie Barriers d 03-07 15:10:00 [place] s present 15:10: [id number] Nutritional food NT: Resolve 2019-03-07 [place] Barrier storage/pre Barriers d 03-07 15:10:00 [place] p deficit 15:10: [id number] Allergies, Adverse Reactions, Alerts Allergy Allergy [...] 20 mg n 20 mg 03-20 [place] CENTENO tablet tablet loperamide loperamide 2018-02 Yes Midura [...] Unknown Unknown (bulk) 50 (bulk) 50 03-20 Nneo CENTENO million million unit powder unit powder [...] or plasma high density lipoprotein (HDL) cholesterol [id number] 06:10:00Identifier 5-9 Result Time 06:10:00Unknown Test Item [...] plasma troponin i.cardiac measurement (mass/ volume)2019-01-12 21:54:00Identifier 76726-4 Result Time 2019-01-12 21:54: 00Unknown Test Item Value Reference Range Comments Serum or plasma troponin i.cardiac 0.01 ng/mL Unknown Unknown F measurement (mass/volume) (test code = 30868-8) Ordering Physician UnknownSerum or plasma alanine aminotransferase measurement ( enzymatic activity/volume)2019-01-12 13:20:00Identifier 1742-6 Result Time 01-12 13:20:00Unknown Test Item Value Reference Range Comments Serum or plasma alanine aminotransferase 11 U/L Unknown Unknown F measurement (enzymatic activity/volume) (test code = 1742-6) Ordering Physician UnknownSerum or plasma albumin/globulin mass [id number] 13:20:00Identifier 1759-0 Result Time 2019-01-12 13:20:00Unknown Test Item Value Reference Range Comments Serum or plasma albumin/globulin mass ratio 1.2 Unknown Unknown F (test code = 1759-0) Ordering Physician UnknownBlood hemoglobin A1C/total hemoglobin By [id number]- 20 13:20:00Identifier 64718-5 Result Time 2019-01-12 13:20:00Unknown Test Item Value Reference Range Comments Blood hemoglobin A1C/total hemoglobin By HPLC 7.5 % Unknown Unknown F (test code = 50359-0) Ordering Physician UnknownSerum or plasma calcium measurement (mass/volume)01-12 13:20:00Identifier 76067-0 Result Time 2019-01-12 13:20:00Unknown Test Item Value Reference Range Comments Serum or plasma calcium measurement 10.8 mg/dL Unknown Unknown F (mass/volume) (test code = 96909-8) Ordering Physician UnknownSerum or plasma aspartate aminotransferase [...] Ordering Physician UnknownSerum or plasma urea nitrogen/creatinine [id number]- 20 13:20:00Identifier 3097-3 Result Time 2019-01-12 13:20:00Unknown Test Item Value Reference Range Comments Serum or plasma urea nitrogen/creatinine 30.6 Unknown Unknown F ratio (test code = 3097-3) Ordering Physician UnknownAutomated blood platelet mean volume [id number]- 11-20 13:20:00Identifier 81101-6 Result Time 2019-01-12 13:20:00Unknown Test Item Value Reference Range Comments Automated blood platelet mean volume 7.9 fL Unknown Unknown F measurement (test code = 63299-8) Ordering Physician UnknownSerum or plasma anion [id number] 13:20: 00Identifier 44864-5 Result Time 2019-01-12 13:20:00Unknown Test Item Value Reference Range Comments Serum or plasma anion gap (test code = 2 mmol/L Unknown Unknown F 70694-6) Ordering Physician UnknownAutomated blood leukocytes count corrected for nucleated erythrocytes (number/volume)2019-01-12 13:20:00Identifier 14719-1 Result Time 2019-01-12 13:20:00Unknown Test Item Value Reference Range Comments Automated blood leukocytes count 7.6 10^3/uL Unknown Unknown F corrected for nucleated erythrocytes (number/volume) (test code = 04733-7) Ordering Physician UnknownAutomated blood nucleated erythrocytes [id number]- 11-20 13:20:00Identifier 01024-0 Result Time 2019-01-12 13:20:00Unknown Test Item Value Reference Range Comments Automated blood nucleated erythrocytes 0.0 Unknown Unknown F detection (test code = 72567-1) Ordering Physician UnknownErythrocyte sedimentation rate by Westergren [id number] 13:20:00Identifier 4537-7 Result Time 2019-01-12 13:20: 00Unknown [...] Physician UnknownEstimated glomerular filtration rate (GFR) non- Kbesphaa4611-54-27 13:20:00Identifier 65640-2 Result Time 2019-01-12 13: 20:00Unknown Test Item Value Reference Range Comments Estimated glomerular filtration rate (GFR) 79.2 Unknown Unknown F non- (test code = 99782-7) Ordering Physician UnknownAutomated blood monocytes/100 [id number] 13: 20:00Identifier 5905-5 Result Time 2019-01-12 13:20:00Unknown Test Item Value Reference Range Comments Automated blood monocytes/100 leukocytes 6.2 % Unknown Unknown F (test code = 5905-5) Ordering Physician UnknownSerum or plasma albumin measurement by bromocresol green (BCG) dye binding method ([id number] 13:20:00Identifier 82148-6 Result Time 2019-01-12 13:20:00Unknown Test Item Value Reference Range Comments Serum or plasma albumin measurement by 3.6 g/dL Unknown Unknown F bromocresol green (BCG) dye binding method (ma (test code = 92759-1) Ordering Physician UnknownSerum or plasma alkaline phosphatase [...] = 704-7) Ordering Physician UnknownAutomated blood basophils/100 oxwxvgvlqf1806-30-72 13: 20:00Identifier 706-2 Result Time 2019-01-12 13:20:00Unknown [...] = 711-2) Ordering Physician UnknownAutomated blood eosinophils/100 [id number] 13:20:00Identifier 713-8 Result Time 2019-01-12 13:20:00Unknown Test [...] = 731-0) Ordering Physician UnknownAutomated blood lymphocytes/100 cijxexruxz2815-89-71 13:20:00Identifier 736-9 Result Time 2019-01-12 13:20:00Unknown Test Item Value Reference Range Comments Automated blood lymphocytes/100 leukocytes 22.1 % Unknown Unknown F (test code = 736-9) Ordering Physician UnknownBlood monocytes automated count (number/volume)2018-12 13:20:00Identifier 742-7 Result Time 2019-01-12 13:20:00Unknown Test Item Value Reference Range Comments Blood monocytes automated count 0.5 10^3/ul Unknown Unknown F (number/volume) (test code = 742-7) Ordering Physician UnknownAutomated blood neutrophils/100 wrtbixanka1464-13-47 13:20:00Identifier 770-8 Result Time 2019-01-12 13:20:00Unknown Test [...] UnknownAutomated erythrocyte mean corpuscular hemoglobin concentration measurement (mass/jxd1379-04-93 13:20:00Identifier 786-4 Result Time 2019-01-12 13:20:00Unknown Test Item Value Reference Range Comments Automated erythrocyte mean corpuscular 33 g/dL Unknown Unknown F hemoglobin concentration measurement (mass/vol (test code = 786-4) Ordering Physician UnknownAutomated erythrocyte mean corpuscular jptrih6299-19- 20 13:20:00Identifier 787-2 Result Time 2019-01-12 13:20:00Unknown Test Item Value Reference Range Comments Automated erythrocyte mean corpuscular volume 82 fL Unknown Unknown F (test code = 787-2) Ordering Physician UnknownAutomated erythrocyte distribution width rmmgk9817-23- 20 13:20:00Identifier 788-0 Result Time 2019-01-12 13:20:00Unknown [...] code = 789-8) Ordering Physician UnknownCT biopsy [id number] 13:20:00Identifier [id number] Result Time 2019-01-12 13:20:00Unknown Test Item Value Reference Range Comments CT biopsy liver (test code = MSJ5709) 5.3 10^3/ul Unknown Unknown F Ordering Physician Unknown
--- OUTSIDE RECORDS SUMMARY | 2019-04-30 19:21 | XMS REPORT ---
:1945 Author Organization [facility] Care Team Providers Name Role Phone Unavailable Unavailable Unavailable Problems Condition Condition Condition Status Onset Resolution Last Treating Comments Name Details Category Date Date Treatment Clinician Date Hypertensiv Hypertensiv Diagnosis Active 2018-02 Zakia e heart e heart 03-14 [place] disease disease [id number] without without heart heart failure failure Type 2 Type 2 Diagnosis Active 2018-02 Zakia diabetes diabetes 03-14 [place] mellitus mellitus [id number] without without complicatio complicatio ns ns Postprocedu Postprocedu Diagnosis Active 2018-02 Zakia ral ral 03-14 [place] hypothyroid hypothyroid [id number] ism ism Other Other Diagnosis Active 2018-02 Zakia interverteb interverteb 03-14 Beatrice ral disc ral disc [id number] degeneratio degeneratio n, lumbar n, lumbar region region 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 03-14 [place] pulmonary pulmonary [id number] disease, disease, unspecified unspecified Candidiasis Candidiasis Diagnosis Active 2018-02 Zakia , , 03-14 Beatrice unspecified unspecified [id number] Hyperlipide Hyperlipide Diagnosis Active Zakia abdullahi, abdullahi, Beatrice unspecified unspecified [id number] 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, terolemia, [id number] unspecified unspecified Gastro-esop Gastro-esop Diagnosis Active Zakia hageal hageal [place] reflux reflux [id number] disease disease without without esophagitis esophagitis Unspecified Unspecified Diagnosis Active Zakia osteoarthri osteoarthri Beat[place] tis, tis, [id number] unspecified unspecified site site Anemia, Anemia, Diagnosis Active Zakia unspecified unspecified Beatrice [id number] Dysphagia, Dysphagia, Diagnosis Active Zakia unspecified unspecified Beatrice [id number] Morbid Morbid Diagnosis Active Zakia (severe) (severe) Beat[place] obesity due obesity due [id number] to excess to excess calories calories [facility] Diagnosis Active Zakia (current) (current) Beatrice use of use of [id number] insulin insulin Body mass Body mass Diagnosis Active Zakia index (BMI) index (BMI) Beatrice 45.0-49.9, 45.0-49.9, [id number] adult adult [facility] Diagnosis Active Zakia (current) (current) [place] use of use of [id number] aspirin aspirin Personal Personal Diagnosis Active Zakia history of history of [place] nicotine nicotine [id number] dependence dependence Pain frequent Pain Mgmt Active 2018-02 Ping pain 03-20 [place] 09:30: [id number] 00 Cardio hypertensio Cardiovasc Active 2018-02 Ping n ular 03-20 [place] 09:30: [id number] 00 Respiratory dyspnea Respirator Active 2018-02 Ping present y 03-20 [place] 09:30: [id number] 00 Respiratory oxygen Respirator Active 2018-02 Ping treatments y 03-20 [place] in home 09:30: [id number] 00 Endo/Trae anti-coagul Endo/Trae Active 2018-02 Ping ation 03-20 [place] therapy 09:30: [id number] 00 Nutrition knowledge/s Nutrition Active 2018-02 Ping kill 03-20 [place] deficit: pt 09:30: [id number] 00 Nutrition nutritional Nutrition Active 2018-02 Ping restriction 03-20 [place] s 09:30: [id number] 00 Neuro confusion Neuro/Emot Active 2018-02 Ping present ion 03-20 [place] 09:30: [id number] 00 Neuro impaired Neuro/Emot Active 2018-02 Ping decision-ma ion 03-20 [place] promise 09:30: [id number] 00 Activity ADL Activity Active 2018-02 Ping assistance 03-20 [place] required 09:30: [id number] 00 Activity self-care Activity Active 2018-02 Ping deficit 03-20 [place] 09:30: [id number] 00 Safety structural Safety Active 2018-02 Ping barriers 03-20 [facility] 09:30: [id number] 00 Safety sanitation Safety Active 2018-02 Ping hazards 03-20 [place] present 09:30: [id number] 00 Safety fall risk Safety Active 2018-02 Ping factor 03-20 [place] present 09:30: [id number] 00 Safety risk for Safety Active 2018-02 Ping hospitaliza 03-20 [place] tion 09:30: [id number] 00 Medication oral med Meds Active 2018-02 [facility] assistance 03-20 [place] required 09:30: [id number] 00 Medication injectable Meds Active 2018-02 Ping med 03-20 [place] assistance 09:30: [id number] required 00 Musculoskel transfer Musculoske Active 2018-02 Ping etal assistance letal 03-20 [place] required 09:30: [id number] 00 Musculoskel requires Musculoske Active 2018-02 Ping etal human letal 03-20 [place] assist to 09:30: [id number] leave home 00 24 Hr Diet nutrition NT: 24Hr Active 2018-02 [place] intake Diet 2- [place] deficit 10:20: [id number] 00 24 Hr Diet knowledge/s NT: 24Hr Resolve 2018-022019-02-11 [place] kill Diet d 2-20 10:20:00 [place] deficit - 10:20: [id number] pt 00 Nutritional food NT: Resolve 2018-022019-02-11 [place] Barrier storage/pre Barriers d 2-20 10:20:00 [place] p deficit 10:20: [id number] Nutritional eating NT: Resolve 2018-022019-02-11 [place] Barrier difficultie Barriers d 2-20 10:20:00 [place] s present 10:20: [id number] 00 24 Hr Diet knowledge/s NT: 24Hr Active Zakia kill Diet 03-03 [place] deficit - 12:57: [id number] pt 00 Allergies, Adverse Reactions, Alerts Allergy Allergy [...] Unknown Unknown Comp/C/Fa/I Comp/C/Fa/I 03-20 [facility] Sulf/Neil Sulf/Neil levothyroxi levothyroxi 2018-02 Yes Midura [...] Observation Time Observation Value Comments SYSTOLIC mm[Hg] 2019-03-03 18:09:47 142 mm[Hg] mm[Hg] Method: Sit SYSTOLIC mm[Hg] 2019-01-18 18:09:03 150 mm[Hg] mm[Hg] Method: Stand DIASTOLIC mm[Hg] 2019-03-03 18:09:47 78 mm[Hg] mm[Hg] Method: Sit DIASTOLIC mm[Hg] 2019-01-18 18:09:03 80 mm[Hg] mm[Hg] Method: Stand PULSE 2019-03-03 18:09:47 68 /min /min RESP RATE 2019-03-03 18:09:47 18 /min /min TEMP 2019-03-03 18:09:47 97.4 [degF] Procedures This patient has no known [...] or plasma high density lipoprotein (HDL) cholesterol [id number] 06:10:00Identifier 5-9 Result Time 06:10:00Unknown Test Item Value Reference Range Comments Serum or plasma high density lipoprotein 28.5 mg/dL Unknown Unknown F (HDL) cholesterol measurement (test code = 2085-9) Ordering Physician UnknownSerum or plasma low density lipoprotein (LDL) cholesterol measurement (mass/volume)2019-01-13 06:10:00Identifier 9-1 Result Time 2019-01-13 06:10:00Unknown Test Item Value [...] plasma troponin i.cardiac measurement (mass/ volume)2019-01-12 21:54:00Identifier 82980-6 Result Time 2019-01-12 21:54: 00Unknown Test Item Value Reference Range Comments Serum or plasma troponin i.cardiac 0.01 ng/mL Unknown Unknown F measurement (mass/volume) (test code = 25092-0) Ordering Physician UnknownSerum or plasma alanine aminotransferase measurement ( enzymatic activity/volume)2019-01-12 13:20:00Identifier 1742-6 Result Time 01-12 13:20:00Unknown Test Item Value Reference Range Comments Serum or plasma alanine aminotransferase 11 U/L Unknown Unknown F measurement (enzymatic activity/volume) (test code = 1742-6) Ordering Physician UnknownSerum or plasma albumin/globulin mass arzhr7106-04-18 13:20:00Identifier 1759-0 Result Time 2019-01-12 13:20:00Unknown Test Item Value Reference Range Comments Serum or plasma albumin/globulin mass ratio 1.2 Unknown Unknown F (test code = 1759-0) Ordering Physician UnknownBlood hemoglobin A1C/total hemoglobin By [id number]- 20 13:20:00Identifier 88211-5 Result Time 2019-01-12 13:20:00Unknown Test Item Value Reference Range Comments Blood hemoglobin A1C/total hemoglobin By HPLC 7.5 % Unknown Unknown F (test code = 05709-9) Ordering Physician UnknownSerum or plasma calcium measurement (mass/volume)01-12 13:20:00Identifier 50362-7 Result Time 2019-01-12 13:20:00Unknown Test Item Value Reference Range Comments Serum or plasma calcium measurement 10.8 mg/dL Unknown Unknown F (mass/volume) (test code = 09426-0) Ordering Physician UnknownSerum or plasma aspartate aminotransferase measurement (enzymatic activity/volume)2019-01-12 13:20:00Identifier 1920-8 Result Time 2019-01-12 13:20:00Unknown Test Item Value Reference Range Comments Serum or plasma aspartate aminotransferase 12 U/L Unknown Unknown F measurement (enzymatic activity/volume) (test code = 1920-8) Ordering Physician UnknownSerum or plasma total bilirubin measurement (mass/ volume)2019-01-12 13:20:00Identifier 1974-2 Result Time 2019-01-12 13:20: 00Unknown Test Item [...] Unknown F measurement (moles/volume) (test code = 2027-) Ordering Physician UnknownSerum or plasma chloride measurement (moles/volume) 2019-01-12 13:20:00Identifier 5-0 Result Time 2019-01-12 13:20:00Unknown Test Item Value Reference Range Comments Serum or plasma chloride measurement 106 mmol/L Unknown Unknown F (moles/volume) (test code = 5-0) Ordering Physician UnknownSerum or plasma creatinine measurement (mass/volume) 2019-01-12 13:20:00Identifier 0-0 Result Time 2019-01-12 13:20:00Unknown Test Item Value [...] Ordering Physician UnknownSerum or plasma urea nitrogen/creatinine rwseo3619-26- 20 13:20:00Identifier 3097-3 Result Time 2019-01-12 13:20:00Unknown Test Item Value Reference Range Comments Serum or plasma urea nitrogen/creatinine 30.6 Unknown Unknown F ratio (test code = 3097-3) Ordering Physician UnknownAutomated blood platelet mean volume vzcwqtjpjcd5956- 11-20 13:20:00Identifier 24454-9 Result Time 2019-01-12 13:20:00Unknown Test Item Value Reference Range Comments Automated blood platelet mean volume 7.9 fL Unknown Unknown F measurement (test code = 82425-1) Ordering Physician UnknownSerum or plasma anion [id number] 13:20: 00Identifier 07460-5 Result Time 2019-01-12 13:20:00Unknown Test Item Value Reference Range Comments Serum or plasma anion gap (test code = 2 mmol/L Unknown Unknown F 66787-4) Ordering Physician UnknownAutomated blood leukocytes count corrected for nucleated erythrocytes (number/volume)2019-01-12 13:20:00Identifier 75276-0 Result Time 2019-01-12 13:20:00Unknown Test Item Value Reference Range Comments Automated blood leukocytes count 7.6 10^3/uL Unknown Unknown F corrected for nucleated erythrocytes (number/volume) (test code = 63248-0) Ordering Physician UnknownAutomated blood nucleated erythrocytes lczqxmxgs2385- 11-20 13:20:00Identifier 57604-2 Result Time 2019-01-12 13:20:00Unknown Test Item Value Reference Range Comments Automated blood nucleated erythrocytes 0.0 Unknown Unknown F detection (test code = 04662-8) Ordering Physician UnknownErythrocyte sedimentation rate by Westergren lzhwkh0819-58-87 13:20:00Identifier 4537-7 Result Time 2019-01-12 13:20: 00Unknown [...] Physician UnknownEstimated glomerular filtration rate (GFR) non- Miaiewrn8205-99-97 13:20:00Identifier 65562-6 Result Time 2019-01-12 13: 20:00Unknown Test Item Value Reference Range Comments Estimated glomerular filtration rate (GFR) 79.2 Unknown Unknown F non- (test code = 41483-9) Ordering Physician UnknownAutomated blood monocytes/100 eyexditgae8997-61-04 13: 20:00Identifier 5905-5 Result Time 2019-01-12 13:20:00Unknown Test Item Value Reference Range Comments Automated blood monocytes/100 leukocytes 6.2 % Unknown Unknown F (test code = 5905-5) Ordering Physician UnknownSerum or plasma albumin measurement by bromocresol green (BCG) dye binding method ([id number] 13:20:00Identifier 15388-6 Result Time 2019-01-12 13:20:00Unknown Test Item Value Reference Range Comments Serum or plasma albumin measurement by 3.6 g/dL Unknown Unknown F bromocresol green (BCG) dye binding method (ma (test code = 30254-5) Ordering Physician UnknownSerum or plasma alkaline phosphatase [...] = 704-7) Ordering Physician UnknownAutomated blood basophils/100 njhcribfjb5933-64-18 13: 20:00Identifier 706-2 Result Time 2019-01-12 13:20:00Unknown [...] = 711-2) Ordering Physician UnknownAutomated blood eosinophils/100 fcxuhuocvd5092-10-31 13:20:00Identifier 713-8 Result Time 2019-01-12 13:20:00Unknown Test [...] = 731-0) Ordering Physician UnknownAutomated blood lymphocytes/100 ybiipnyequ4765-96-29 13:20:00Identifier 736-9 Result Time 2019-01-12 13:20:00Unknown Test Item Value Reference Range Comments Automated blood lymphocytes/100 leukocytes 22.1 % Unknown Unknown F (test code = 736-9) Ordering Physician UnknownBlood monocytes automated count (number/volume)2018-12 13:20:00Identifier 742-7 Result Time 2019-01-12 13:20:00Unknown Test Item Value Reference Range Comments Blood monocytes automated count 0.5 10^3/ul Unknown Unknown F (number/volume) (test code = 742-7) Ordering Physician UnknownAutomated blood neutrophils/100 mzmlhcohkv0467-06-72 13:20:00Identifier 770-8 Result Time 2019-01-12 13:20:00Unknown Test [...] UnknownAutomated erythrocyte mean corpuscular hemoglobin concentration measurement (mass/xha9476-02-00 13:20:00Identifier 786-4 Result Time 2019-01-12 13:20:00Unknown Test Item Value Reference Range Comments Automated erythrocyte mean corpuscular 33 g/dL Unknown Unknown F hemoglobin concentration measurement (mass/vol (test code = 786-4) Ordering Physician UnknownAutomated erythrocyte mean corpuscular mferla9178-26- 20 13:20:00Identifier 787-2 Result Time 2019-01-12 13:20:00Unknown Test Item Value Reference Range Comments Automated erythrocyte mean corpuscular volume 82 fL Unknown Unknown F (test code = 787-2) Ordering Physician UnknownAutomated erythrocyte distribution width ytyxx5454-03- 20 13:20:00Identifier 788-0 Result Time 2019-01-12 13:20:00Unknown [...] code = 789-8) Ordering Physician UnknownCT biopsy xxjur2193-97-79 13:20:00Identifier [id number] Result Time 2019-01-12 13:20:00Unknown Test Item Value Reference Range Comments CT biopsy liver (test code = ZHI2357) 5.3 10^3/ul Unknown Unknown F Ordering Physician Unknown
--- OUTSIDE RECORDS SUMMARY | 2019-04-30 19:21 | XMS REPORT ---
:1945 Author Organization [facility] Care Team Providers Name Role Phone Unavailable Unavailable Unavailable Problems Condition Condition Condition Status Onset Resolution Last Treating Comments Name Details Category Date Date Treatment Clinician Date Hypertensiv Hypertensiv Diagnosis Active 2018-02 Zakia e heart e heart 03-14 [place] disease disease [id number] without without heart heart failure failure Type 2 Type 2 Diagnosis Active 2018-02 Zakia diabetes diabetes 03-14 Beatrice mellitus mellitus [id number] without without complicatio complicatio ns ns Postprocedu Postprocedu Diagnosis Active 2018-02 Zakia ral ral 03-14 [place] hypothyroid hypothyroid [id number] ism ism Other Other Diagnosis Active 2018-02 Zakia interverteb interverteb 03-14 Beatrice ral disc ral disc [id number] degeneratio degeneratio n, lumbar n, lumbar region region 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 03-14 Beat[place] pulmonary pulmonary [id number] disease, disease, unspecified unspecified Candidiasis Candidiasis Diagnosis Active 2018-02 Zakia , , 03-14 Beatrice unspecified unspecified [id number] Hyperlipide Hyperlipide Diagnosis Active Zakia abdullahi, abdullahi, Beat[place] unspecified unspecified [id number] 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, terolemia, [id number] unspecified unspecified Gastro-esop Gastro-esop Diagnosis Active Zakia hageal hageal [place] reflux reflux [id number] disease disease without without esophagitis esophagitis Unspecified Unspecified Diagnosis Active Zakia osteoarthri osteoarthri Beat[place] tis, tis, [id number] unspecified unspecified site site Anemia, Anemia, Diagnosis Active Zakia unspecified unspecified Beatrice [id number] Dysphagia, Dysphagia, Diagnosis Active Zakia unspecified unspecified Beatrice [id number] Morbid Morbid Diagnosis Active Zakia (severe) (severe) Beatrice obesity due obesity due [id number] to excess to excess calories calories 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 USP Diagnosis Active Zakia (current) (current) Beatrice use of use of [id number] insulin insulin Body mass Body mass Diagnosis Active Zakia index (BMI) index (BMI) Beatrice 45.0-49.9, 45.0-49.9, [id number] adult adult 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 USP Diagnosis Active Zakia (current) (current) [place] use of use of [id number] aspirin aspirin Personal Personal Diagnosis Active Zakia history of history of [place] nicotine 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 dependence dependence Pain frequent Pain Mgmt Active 2018-02 Ping pain 03-20 Russell 09:30: [id number] 00 Cardio hypertensio Cardiovasc Active 2018-02 Ping n ular 03-20 Russell 09:30: [id number] 00 Respiratory dyspnea Respirator Active 2018-02 Ping present y 03-20 Russell 09:30: [id number] 00 Respiratory oxygen Respirator Active 2018-02 Ping treatments y 03-20 Russell in home 09:30: [id number] 00 Endo/Trae anti-coagul Endo/Trae Active 2018-02 Ping ation 03-20 Russell therapy 09:30: [id number] 00 Nutrition knowledge/s Nutrition Active 2018-02 Ping kill 03-20 Russell deficit: pt 09:30: [id number] 00 Nutrition nutritional Nutrition Active 2018-02 Ping restriction 03-20 Russell s 09:30: [id number] 00 Neuro confusion Neuro/Emot Active 2018-02 Ping present ion 03-20 [facility] 09:30: [id number] 00 Neuro impaired Neuro/Emot Active 2018-02 Ping decision-ma ion 03-20 Russell promise 09:30: [id number] 00 Activity ADL Activity Active 2018-02 Ping assistance 03-20 Russell required 09:30: [id number] 00 Activity self-care Activity Active 2018-02 Ping deficit 03-20 [place] 09:30: [id number] 00 Safety structural Safety Active 2018-02 Ping barriers 03-20 [facility] 09:30: [id number] 00 Safety sanitation Safety Active 2018-02 Ping hazards 03-20 Russell present 09:30: [id number] 00 Safety fall risk Safety Active 2018-02 Ping factor 03-20 Russell present 09:30: [id number] 00 Safety risk for Safety Active 2018-02 Ping hospitaliza 03-20 Russell tion 09:30: [id number] 00 Medication oral med Meds Active 2018-02 [facility] assistance 03-20 Russell required 09:30: [id number] 00 Medication injectable Meds Active 2018-02 Ping med 03-20 [place] assistance 09:30: [id number] required 00 Musculoskel transfer Musculoske Active 2018-02 Ping etal assistance letal 03-20 Russell required 09:30: [id number] 00 Musculoskel requires Musculoske Active 2018-02 Ping etal human letal 03-20 Russell assist to 09:30: [id number] leave home 00 24 Hr Diet nutrition NT: 24Hr Active 2018-02 [place] intake Diet 2- [place] deficit 10:20: [id number] 00 24 Hr Diet knowledge/s NT: 24Hr Resolve 2018-022019-02-11 [place] kill Diet d 2-20 10:20:00 [place] deficit - 10:20: [id number] pt 00 Nutritional food NT: Resolve 2018-022019-02-11 [place] Barrier storage/pre Barriers d 2-20 10:20:00 [place] p deficit 10:20: [id number] 00 Nutritional eating NT: Resolve 2018-022019-02-11 [place] Barrier difficultie Barriers d 2-20 10:20:00 [place] s present 10:20: [id number] 00 24 Hr Diet knowledge/s NT: 24Hr Active Zakia kill Diet 03-03 Beatrice deficit - 12:57: [id number] pt 00 Allergies, Adverse Reactions, Alerts Allergy [...] or plasma high density lipoprotein (HDL) cholesterol [id number] 06:10:00Identifier 5-9 Result Time 06:10:00Unknown Test Item [...] plasma troponin i.cardiac measurement (mass/ volume)2019-01-12 21:54:00Identifier 70992-9 Result Time 2019-01-12 21:54: 00Unknown Test Item Value Reference Range Comments Serum or plasma troponin i.cardiac 0.01 ng/mL Unknown Unknown F measurement (mass/volume) (test code = 17529-4) Ordering Physician UnknownSerum or plasma alanine aminotransferase measurement ( enzymatic activity/volume)2019-01-12 13:20:00Identifier 1742-6 Result Time 01-12 13:20:00Unknown Test Item Value Reference Range Comments Serum or plasma alanine aminotransferase 11 U/L Unknown Unknown F measurement (enzymatic activity/volume) (test code = 1742-6) Ordering Physician UnknownSerum or plasma albumin/globulin mass [id number] 13:20:00Identifier 1759-0 Result Time 2019-01-12 13:20:00Unknown Test Item Value Reference Range Comments Serum or plasma albumin/globulin mass ratio 1.2 Unknown Unknown F (test code = 1759-0) Ordering Physician UnknownBlood hemoglobin A1C/total hemoglobin By [id number]- 20 13:20:00Identifier 62498-8 Result Time 2019-01-12 13:20:00Unknown Test Item Value Reference Range Comments Blood hemoglobin A1C/total hemoglobin By HPLC 7.5 % Unknown Unknown F (test code = 40257-6) Ordering Physician UnknownSerum or plasma calcium measurement (mass/volume)01-12 13:20:00Identifier 68646-1 Result Time 2019-01-12 13:20:00Unknown Test Item Value Reference Range Comments Serum or plasma calcium measurement 10.8 mg/dL Unknown Unknown F (mass/volume) (test code = 74485-9) Ordering Physician UnknownSerum or plasma aspartate aminotransferase [...] Ordering Physician UnknownSerum or plasma urea nitrogen/creatinine [id number]- 20 13:20:00Identifier 3097-3 Result Time 2019-01-12 13:20:00Unknown Test Item Value Reference Range Comments Serum or plasma urea nitrogen/creatinine 30.6 Unknown Unknown F ratio (test code = 3097-3) Ordering Physician UnknownAutomated blood platelet mean volume zhsytfshopc0536- 11-20 13:20:00Identifier 96167-5 Result Time 2019-01-12 13:20:00Unknown Test Item Value Reference Range Comments Automated blood platelet mean volume 7.9 fL Unknown Unknown F measurement (test code = 46414-7) Ordering Physician UnknownSerum or plasma anion [id number] 13:20: 00Identifier 73989-2 Result Time 2019-01-12 13:20:00Unknown Test Item Value Reference Range Comments Serum or plasma anion gap (test code = 2 mmol/L Unknown Unknown F 87587-2) Ordering Physician UnknownAutomated blood leukocytes count corrected for nucleated erythrocytes (number/volume)2019-01-12 13:20:00Identifier 69788-6 Result Time 2019-01-12 13:20:00Unknown Test Item Value Reference Range Comments Automated blood leukocytes count 7.6 10^3/uL Unknown Unknown F corrected for nucleated erythrocytes (number/volume) (test code = 42568-4) Ordering Physician UnknownAutomated blood nucleated erythrocytes ansfujaxs3868- 11-20 13:20:00Identifier 41715-7 Result Time 2019-01-12 13:20:00Unknown Test Item Value Reference Range Comments Automated blood nucleated erythrocytes 0.0 Unknown Unknown F detection (test code = 21827-8) Ordering Physician UnknownErythrocyte sedimentation rate by Westergren [id number] 13:20:00Identifier 4537-7 Result Time 2019-01-12 13:20: 00Unknown [...] Physician UnknownEstimated glomerular filtration rate (GFR) non- Csndozhj9342-59-07 13:20:00Identifier 00695-8 Result Time 2019-01-12 13: 20:00Unknown Test Item Value Reference Range Comments Estimated glomerular filtration rate (GFR) 79.2 Unknown Unknown F non- (test code = 74570-1) Ordering Physician UnknownAutomated blood monocytes/100 bymbdrxvbw6628-94-75 13: 20:00Identifier 5905-5 Result Time 2019-01-12 13:20:00Unknown Test Item Value Reference Range Comments Automated blood monocytes/100 leukocytes 6.2 % Unknown Unknown F (test code = 5905-5) Ordering Physician UnknownSerum or plasma albumin measurement by bromocresol green (BCG) dye binding method ([id number] 13:20:00Identifier 09736-7 Result Time 2019-01-12 13:20:00Unknown Test Item Value Reference Range Comments Serum or plasma albumin measurement by 3.6 g/dL Unknown Unknown F bromocresol green (BCG) dye binding method (ma (test code = 23885-8) Ordering Physician UnknownSerum or plasma alkaline phosphatase [...] = 704-7) Ordering Physician UnknownAutomated blood basophils/100 meonqzgiax9746-89-49 13: 20:00Identifier 706-2 Result Time 2019-01-12 13:20:00Unknown [...] = 711-2) Ordering Physician UnknownAutomated blood eosinophils/100 budhvwwawa3977-96-24 13:20:00Identifier 713-8 Result Time 2019-01-12 13:20:00Unknown Test [...] = 731-0) Ordering Physician UnknownAutomated blood lymphocytes/100 [id number] 13:20:00Identifier 736-9 Result Time 2019-01-12 13:20:00Unknown Test Item Value Reference Range Comments Automated blood lymphocytes/100 leukocytes 22.1 % Unknown Unknown F (test code = 736-9) Ordering Physician UnknownBlood monocytes automated count (number/volume)2018-12 13:20:00Identifier 742-7 Result Time 2019-01-12 13:20:00Unknown Test Item Value Reference Range Comments Blood monocytes automated count 0.5 10^3/ul Unknown Unknown F (number/volume) (test code = 742-7) Ordering Physician UnknownAutomated blood neutrophils/100 [id number] 13:20:00Identifier 770-8 Result Time 2019-01-12 13:20:00Unknown Test [...] UnknownAutomated erythrocyte mean corpuscular hemoglobin concentration measurement (mass/ywk3408-71-28 13:20:00Identifier 786-4 Result Time 2019-01-12 13:20:00Unknown Test Item Value Reference Range Comments Automated erythrocyte mean corpuscular 33 g/dL Unknown Unknown F hemoglobin concentration measurement (mass/vol (test code = 786-4) Ordering Physician UnknownAutomated erythrocyte mean corpuscular gqdvqk2744-85- 20 13:20:00Identifier 787-2 Result Time 2019-01-12 13:20:00Unknown Test Item Value Reference Range Comments Automated erythrocyte mean corpuscular volume 82 fL Unknown Unknown F (test code = 787-2) Ordering Physician UnknownAutomated erythrocyte distribution width [id number]- 20 13:20:00Identifier 788-0 Result Time 2019-01-12 13:20:00Unknown [...] code = 789-8) Ordering Physician UnknownCT biopsy [id number] 13:20:00Identifier [id number] Result Time 2019-01-12 13:20:00Unknown Test Item Value Reference Range Comments CT biopsy liver (test code = RCR1033) 5.3 10^3/ul Unknown Unknown F Ordering Physician Unknown
--- OUTSIDE RECORDS SUMMARY | 2019-04-30 19:21 | XMS REPORT ---
:1945 Author Organization [facility] Care Team Providers Name Role Phone Unavailable Unavailable Unavailable Problems Condition Condition Condition Status Onset Resolution Last Treating Comments Name Details Category Date Date Treatment Clinician Date Hypertensiv Hypertensiv Diagnosis Active 2018-02 Zakia e heart e heart 03-14 Beatrice disease disease [id number] without without heart heart failure failure Type 2 Type 2 Diagnosis Active 2018-02 Zakia diabetes diabetes 03-14 Beatrice mellitus mellitus [id number] without without complicatio complicatio ns ns Postprocedu Postprocedu Diagnosis Active 2018-02 Zakia ral ral 03-14 Beatrice hypothyroid hypothyroid [id number] ism ism Other Other Diagnosis Active 2018-02 Zakia interverteb interverteb 03-14 Beatrice ral disc ral disc [id number] degeneratio degeneratio n, lumbar n, lumbar region region 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 03-14 Beatrice pulmonary pulmonary [id number] disease, disease, unspecified unspecified Candidiasis Candidiasis Diagnosis Active 2018-02 Zakia , , 03-14 Beatrice unspecified unspecified [id number] Hyperlipide Hyperlipide Diagnosis Active Zakia abdullahi, abdullahi, Beatrice unspecified unspecified [id number] 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, terolemia, [id number] unspecified unspecified Gastro-esop Gastro-esop Diagnosis Active Zakia hageal hageal Beatrice reflux reflux [id number] disease disease without without esophagitis esophagitis Unspecified Unspecified Diagnosis Active Zakia osteoarthri osteoarthri Beatrice tis, tis, [id number] unspecified unspecified site site Anemia, Anemia, Diagnosis Active Zakia unspecified unspecified Baetrice [id number] Dysphagia, Dysphagia, Diagnosis Active Zakia unspecified unspecified Beatrice [id number] Morbid Morbid Diagnosis Active Zakia (severe) (severe) Beatrice obesity due obesity due [id number] 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 Zakia (current) (current) Beatrice use of use of [id number] insulin insulin Body mass Body mass Diagnosis Active Zakia index (BMI) index (BMI) Beatrice 45.0-49.9, 45.0-49.9, [id number] adult adult intermediate intermediate Diagnosis Active Zakia (current) (current) Beatrice use of use of [id number] aspirin aspirin Personal Personal Diagnosis Active Zakia history of history of Beatrice nicotine nicotine [id number] dependence dependence Pain frequent Pain Mgmt Resolve 2018-022019-03-08 Ping pain d 03-20 10:44:00 Belle Rose 09:30: [id number] Cardio hypertensio Cardiovasc Resolve 2018-022019-03-17 Ping n ular d 03-20 12:30:00 Belle Rose 09:30: [id number] Respiratory dyspnea Respirator Resolve 2018-022019-03-17 Ping present y d 03-20 12:30:00 Belle Rose 09:30: [id number] Respiratory oxygen Respirator Resolve 2018-022019-03-17 Ping treatments y d 03-20 12:30:00 Mallika in home 09:30: [id number] 00 Endo/Trae anti-coagul Endo/Trae Resolve 2018-022019-03-17 Ping ation d 03-20 12:30:00 Belle Rose therapy 09:30: [id number] Nutrition knowledge/s Nutrition Resolve 2018-022019-03-08 Ping kill d 03-20 10:44:00 Belle Rose deficit: pt 09:30: [id number] 00 Nutrition nutritional Nutrition Resolve 2018-022019-03-08 Ping restriction d 03-20 10:44:00 Mallika s 09:30: [id number] 00 Neuro confusion Neuro/Emot Resolve 2018-022019-03-17 Ping present ion d 03-20 12:30:00 Belle Rose 09:30: [id number] 00 Neuro impaired Neuro/Emot Resolve 2018-022019-03-17 Ping decision-ma ion d 03-20 12:30:00 Belle Rose promise 09:30: [id number] 00 Activity ADL Activity Resolve 2018-022019-03-17 Ping assistance d 03-20 12:30:00 Belle Rose required 09:30: [id number] 00 Activity self-care Activity Resolve 2018-022019-03-17 Ping deficit d 03-20 12:30:00 Mallika 09:30: [id number] 00 Safety structural Safety Resolve 2018-022019-03-08 Ping barriers d 03-20 10:44:00 Mallika present 09:30: [id number] Safety sanitation Safety Resolve 2018-022019-03-08 Ping hazards d 03-20 10:44:00 Belle Rose present 09:30: [id number] 00 Safety fall risk Safety Resolve 2018-022019-03-08 Ping factor d 03-20 10:44:00 Belle Rose present 09:30: [id number] 00 Safety risk for Safety Resolve 2018-022019-03-08 Ping hospitaliza d 03-20 10:44:00 Belle Rose tion 09:30: [id number] 00 Medication oral med Meds Resolve 2018-022019-03-17 Ping assistance d 03-20 12:30:00 Mallika required 09:30: [id number] 00 Medication injectable Meds Resolve 2018-022019-03-17 Ping med d 03-20 12:30:00 Belle Rose assistance 09:30: [id number] required 00 Musculoskel transfer Musculoske Resolve 2018-022019-03-08 Ping etal assistance letal d 03-20 10:44:00 Belle Rose required 09:30: [id number] 00 Musculoskel requires Musculoske Resolve 2018-022019-03-08 Ping etal human letal d 03-20 10:44:00 Belle Rose assist to 09:30: [id number] leave home 00 24 Hr Diet nutrition NT: 24Hr Resolve 2018-022019-03-07 Randee intake Diet d 2-20 15:10:00 Armour deficit 10:20: [id number] 00 24 Hr Diet knowledge/s NT: 24Hr Resolve 2018-022019-02-11 Randee kill Diet d 2-20 10:20:00 Armour deficit - 10:20: [id number] pt 00 Nutritional food NT: Resolve 2018-022019-02-11 Randee Barrier storage/pre Barriers d - 10:20:00 Armour p deficit 10:20: [id number] Nutritional eating NT: Resolve 2018-022019-02-11 Randee Barrier difficultie Barriers d - 10:20:00 Armour s present 10:20: [id number] 00 24 Hr Diet knowledge/s NT: 24Hr Resolve 2019-03-07 Zakia lezama Diet d 03-03 15:10:00 Beatrice deficit - 12:57: [id number] pt 00 Nutritional eating NT: Resolve 2019-03-07 Randee Barrier difficultie Barriers d 03-07 15:10:00 Armour s present 15:10: [id number] Nutritional food NT: Resolve 2019-03-07 Randee Barrier storage/pre Barriers d 03-07 15:10:00 Armour p deficit 15:10: [id number] Allergies, Adverse Reactions, Alerts Allergy Allergy [...] (SIG) Name Name atenolol 25 atenolol 25 2018-02- Yes Midura Unknown Unknown mg tablet mg tablet 03-20 Neno CENTENO aspirin 81 aspirin 81 2018-02- Yes Midura Unknown Unknown mg chewable mg chewable 03-20 Neno CENTENO tablet tablet rosuvastati rosuvastati 2018-02- Yes Midura Unknown Unknown n 20 mg n 20 mg 03-20 Neno CENTENO tablet tablet loperamide loperamide 2018-02- Yes Midura Unknown Unknown 2 mg 2 mg 03-20 Neno CENTENO capsule capsule Vit B Vit B 2018-02- Yes Midura Unknown Unknown Comp/C/Fa/I Comp/C/Fa/I 03-20 MD,Neno marina marina Sulf/Neil Sulf/Neil levothyroxi levothyroxi 2018-02- Yes Midura Unknown Unknown ne 200 mcg ne 200 mcg 03-20 Neno CENTENO tablet tablet levothyroxi levothyroxi 2018-02- Yes Midura Unknown Unknown ne 25 mcg ne 25 mcg 03-20 Neno CENTENO tablet tablet lisinopril lisinopril 2018-02- Yes Midura Unknown Unknown 10 mg 10 mg 03-20 Neno CENTENO tablet tablet nystatin nystatin 2018-02- Yes Midura Unknown Unknown (bulk) 50 (bulk) 50 03-20 Neno CENTENO million million unit powder unit powder Lantus Lantus 2018-02- Yes Midura Unknown Unknown Solostar Solostar 03-20 Neno CENTENO U-100 U-100 Insulin 100 Insulin 100 unit/mL (3 unit/mL (3 mL) mL) subcutaneou subcutaneou s pen s pen traZODone traZODone 2018-02- Yes Midura Unknown Unknown 50 mg 50 mg 03-20 Neno CENTENO tablet tablet nabumetone nabumetone 2018-02- Yes Midura Unknown Unknown 750 mg 750 mg 03-20 Neno CENTENO tablet tablet Oxygen Oxygen 2018-02- Yes Midura Unknown Unknown 03-20 Neno CENTENO Vital Signs Vital Name Observation Time Observation Value Comments SYSTOLIC mm[Hg] 2019-01-18 18:09:03 150 mm[Hg] mm[Hg] Method: Stand DIASTOLIC mm[Hg] 2019-01-18 18:09:03 80 mm[Hg] mm[Hg] Method: Stand RESP RATE 2019-03-17 18:10:01 18 /min /min Procedures This patient has no known procedures. [...] or plasma high density lipoprotein (HDL) cholesterol [id number] 06:10:00Identifier 2085-9 Result Time 06:10:00Unknown Test Item Value Reference [...] plasma troponin i.cardiac measurement (mass/ volume)2019-01-12 21:54:00Identifier 76444-9 Result Time 2019-01-12 21:54: 00Unknown Test Item Value Reference Range Comments Serum or plasma troponin i.cardiac 0.01 ng/mL Unknown Unknown F measurement (mass/volume) (test code = 64311-7) Ordering Physician UnknownSerum or plasma alanine aminotransferase measurement ( enzymatic activity/volume)2019-01-12 13:20:00Identifier 1742-6 Result Time 01-12 13:20:00Unknown Test Item Value Reference Range Comments Serum or plasma alanine aminotransferase 11 U/L Unknown Unknown F measurement (enzymatic activity/volume) (test code = 1742-6) Ordering Physician UnknownSerum or plasma albumin/globulin mass [id number] 13:20:00Identifier 1759-0 Result Time 2019-01-12 13:20:00Unknown Test Item Value Reference Range Comments Serum or plasma albumin/globulin mass ratio 1.2 Unknown Unknown F (test code = 1759-0) Ordering Physician UnknownBlood hemoglobin A1C/total hemoglobin By [id number]- 20 13:20:00Identifier 86053-5 Result Time 2019-01-12 13:20:00Unknown Test Item Value Reference Range Comments Blood hemoglobin A1C/total hemoglobin By HPLC 7.5 % Unknown Unknown F (test code = 26908-8) Ordering Physician UnknownSerum or plasma calcium measurement (mass/volume)01-12 13:20:00Identifier 52702-5 Result Time 2019-01-12 13:20:00Unknown Test Item Value Reference Range Comments Serum or plasma calcium measurement 10.8 mg/dL Unknown Unknown F (mass/volume) (test code = 89684-1) Ordering Physician UnknownSerum or plasma aspartate aminotransferase measurement (enzymatic activity/volume)2019-01-12 13:20:00Identifier 1919-8 Result Time 2019-01-12 13:20:00Unknown Test Item Value Reference Range Comments Serum or plasma aspartate aminotransferase 12 U/L Unknown Unknown F measurement (enzymatic activity/volume) (test code = 1919-8) Ordering Physician UnknownSerum or plasma total bilirubin measurement (mass/ volume)2019-01-12 13:20:00Identifier 1974-03 Result Time 2019-01-12 13:20: 00Unknown Test Item [...] Unknown F measurement (moles/volume) (test code = 2028-9) Ordering Physician UnknownSerum or plasma chloride measurement [...] Ordering Physician UnknownSerum or plasma urea nitrogen/creatinine ysnkq2740-02- 20 13:20:00Identifier 3097-3 Result Time 2019-01-12 13:20:00Unknown Test Item Value Reference Range Comments Serum or plasma urea nitrogen/creatinine 30.6 Unknown Unknown F ratio (test code = 3097-3) Ordering Physician UnknownAutomated blood platelet mean volume vlsizcyuphf1797- 11-20 13:20:00Identifier 79181-2 Result Time 2019-01-12 13:20:00Unknown Test Item Value Reference Range Comments Automated blood platelet mean volume 7.9 fL Unknown Unknown F measurement (test code = 03204-0) Ordering Physician UnknownSerum or plasma anion moa0947-53-30 13:20: 00Identifier 03646-4 Result Time 2019-01-12 13:20:00Unknown Test Item Value Reference Range Comments Serum or plasma anion gap (test code = 2 mmol/L Unknown Unknown F 37250-3) Ordering Physician UnknownAutomated blood leukocytes count corrected for nucleated erythrocytes (number/volume)2019-01-12 13:20:00Identifier 85918-6 Result Time 2019-01-12 13:20:00Unknown Test Item Value Reference Range Comments Automated blood leukocytes count 7.6 10^3/uL Unknown Unknown F corrected for nucleated erythrocytes (number/volume) (test code = 38075-8) Ordering Physician UnknownAutomated blood nucleated erythrocytes [id number]- 11-20 13:20:00Identifier 89182-6 Result Time 2019-01-12 13:20:00Unknown Test Item Value Reference Range Comments Automated blood nucleated erythrocytes 0.0 Unknown Unknown F detection (test code = 28495-8) Ordering Physician UnknownErythrocyte sedimentation rate by Westergren [id number] 13:20:00Identifier 4537-7 Result Time 2019-01-12 13:20: 00Unknown [...] Physician UnknownEstimated glomerular filtration rate (GFR) non- Yusmgjar7064-80-85 13:20:00Identifier 72943-0 Result Time 2019-01-12 13: 20:00Unknown Test Item Value Reference Range Comments Estimated glomerular filtration rate (GFR) 79.2 Unknown Unknown F non- (test code = 88779-0) Ordering Physician UnknownAutomated blood monocytes/100 ktdrbeccia0836-24-76 13: 20:00Identifier 5905-5 Result Time 2019-01-12 13:20:00Unknown Test Item Value Reference Range Comments Automated blood monocytes/100 leukocytes 6.2 % Unknown Unknown F (test code = 5905-5) Ordering Physician UnknownSerum or plasma albumin measurement by bromocresol green (BCG) dye binding method ([id number] 13:20:00Identifier 07369-4 Result Time 2019-01-12 13:20:00Unknown Test Item Value Reference Range Comments Serum or plasma albumin measurement by 3.6 g/dL Unknown Unknown F bromocresol green (BCG) dye binding method (ma (test code = 34158-0) Ordering Physician UnknownSerum or plasma alkaline phosphatase [...] = 704-7) Ordering Physician UnknownAutomated blood basophils/100 [id number] 13: 20:00Identifier 706-2 Result Time 2019-01-12 13:20:00Unknown [...] = 711-2) Ordering Physician UnknownAutomated blood eosinophils/100 tmvngmuczx7936-42-19 13:20:00Identifier 713-8 Result Time 2019-01-12 13:20:00Unknown Test [...] = 731-0) Ordering Physician UnknownAutomated blood lymphocytes/100 [id number] 13:20:00Identifier 736-9 Result Time 2019-01-12 13:20:00Unknown Test Item Value Reference Range Comments Automated blood lymphocytes/100 leukocytes 22.1 % Unknown Unknown F (test code = 736-9) Ordering Physician UnknownBlood monocytes automated count (number/volume)2018-12 13:20:00Identifier 742-7 Result Time 2019-01-12 13:20:00Unknown Test Item Value Reference Range Comments Blood monocytes automated count 0.5 10^3/ul Unknown Unknown F (number/volume) (test code = 742-7) Ordering Physician UnknownAutomated blood neutrophils/100 vfokkaoxxz6674-53-21 13:20:00Identifier 770-8 Result Time 2019-01-12 13:20:00Unknown Test [...] UnknownAutomated erythrocyte mean corpuscular hemoglobin concentration measurement (mass/row5808-56-26 13:20:00Identifier 786-4 Result Time 2019-01-12 13:20:00Unknown Test Item Value Reference Range Comments Automated erythrocyte mean corpuscular 33 g/dL Unknown Unknown F hemoglobin concentration measurement (mass/vol (test code = 786-4) Ordering Physician UnknownAutomated erythrocyte mean corpuscular vxhdsz6529-99- 20 13:20:00Identifier 787-2 Result Time 2019-01-12 13:20:00Unknown Test Item Value Reference Range Comments Automated erythrocyte mean corpuscular volume 82 fL Unknown Unknown F (test code = 787-2) Ordering Physician UnknownAutomated erythrocyte distribution width vnnrg6938-22- 20 13:20:00Identifier 788-0 Result Time 2019-01-12 13:20:00Unknown [...] code = 789-8) Ordering Physician UnknownCT biopsy tfziu3213-36-24 13:20:00Identifier [id number] Result Time 2019-01-12 13:20:00Unknown Test Item Value Reference Range Comments CT biopsy liver (test code = ESY5752) 5.3 10^3/ul Unknown Unknown F Ordering Physician Unknown
--- OUTSIDE RECORDS SUMMARY | 2019-04-30 19:21 | XMS REPORT ---
:1945 Author Organization [facility] Care Team Providers Name Role Phone Unavailable Unavailable Unavailable Problems Condition Condition Condition Status Onset Resolution Last Treating Comments Name Details Category Date Date Treatment Clinician Date Hypertensiv Hypertensiv Diagnosis Active 2018-02 Zakia e heart e heart 03-14 Beatrice disease disease [id number] without without heart heart failure failure Type 2 Type 2 Diagnosis Active 2018-02 Zakia diabetes diabetes 03-14 Beatrice mellitus mellitus [id number] without without complicatio complicatio ns ns Postprocedu Postprocedu Diagnosis Active 2018-02 Zakia ral ral 03-14 Beatrice hypothyroid hypothyroid [id number] ism ism Other Other Diagnosis Active 2018-02 Zakia interverteb interverteb 03-14 Beatrice ral disc ral disc [id number] degeneratio degeneratio n, lumbar n, lumbar region region 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 03-14 Beatrice pulmonary pulmonary [id number] disease, disease, unspecified unspecified Candidiasis Candidiasis Diagnosis Active 2018-02 Zakia , , 03-14 Beatrice unspecified unspecified [id number] Hyperlipide Hyperlipide Diagnosis Active Zakia abdullahi, abdullahi, Beatrice unspecified unspecified [id number] 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, terolemia, [id number] unspecified unspecified Gastro-esop Gastro-esop Diagnosis Active Zakia hageal hageal Beatrice reflux reflux [id number] disease disease without without esophagitis esophagitis Unspecified Unspecified Diagnosis Active Zakia osteoarthri osteoarthri Beatrice tis, tis, [id number] unspecified unspecified site site Anemia, Anemia, Diagnosis Active Zakia unspecified unspecified Beatrice [id number] Dysphagia, Dysphagia, Diagnosis Active Zakia unspecified unspecified Beatrice [id number] Morbid Morbid Diagnosis Active Zakia (severe) (severe) Beatrice obesity due obesity due [id number] to excess to excess calories 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) (current) Beatrice use of use of [id number] insulin insulin Body mass Body mass Diagnosis Active Zakia index (BMI) index (BMI) Beatrice 45.0-49.9, 45.0-49.9, [id number] adult adult MCC MCC Diagnosis Active Zakia (current) (current) Beatrice use of use of [id number] aspirin aspirin Personal Personal Diagnosis Active Zakia history of history of Beatrice nicotine nicotine 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 dependence dependence Pain frequent Pain Mgmt Resolve 2018-022019-03-08 Ping pain d 03-20 10:44:00 Kerman 09:30: [id number] 00 Cardio hypertensio Cardiovasc Resolve 2018-022019-03-17 Ping n ular d 03-20 12:30:00 Kerman 09:30: [id number] 00 Respiratory dyspnea Respirator Resolve 2018-022019-03-17 Ping present y d 03-20 12:30:00 Kerman 09:30: [id number] 00 Respiratory oxygen Respirator Resolve 2018-022019-03-17 Ping treatments y d 03-20 12:30:00 Mallika in home 09:30: [id number] 00 Endo/Trae anti-coagul Endo/Trae Resolve 2018-022019-03-17 Ping ation d 03-20 12:30:00 Kerman therapy 09:30: [id number] 00 Nutrition knowledge/s Nutrition Resolve 2018-022019-03-08 Ping kill d 03-20 10:44:00 Kerman deficit: pt 09:30: [id number] 00 Nutrition nutritional Nutrition Resolve 2018-022019-03-08 Ping restriction d 03-20 10:44:00 Mallika s 09:30: [id number] 00 Neuro confusion Neuro/Emot Resolve 2018-022019-03-17 Ping present ion d 03-20 12:30:00 Kerman 09:30: [id number] 00 Neuro impaired Neuro/Emot Resolve 2018-022019-03-17 Ping decision-ma ion d 03-20 12:30:00 Kerman promise 09:30: [id number] 00 Activity ADL Activity Resolve 2018-022019-03-17 Ping assistance d 03-20 12:30:00 Kerman required 09:30: [id number] 00 Activity self-care Activity Resolve 2018-022019-03-17 Ping deficit d 03-20 12:30:00 Mallika 09:30: [id number] 00 Safety structural Safety Resolve 2018-022019-03-08 Ping barriers d 03-20 10:44:00 Mallika present 09:30: [id number] 00 Safety sanitation Safety Resolve 2018-022019-03-08 Ping hazards d 03-20 10:44:00 Kerman present 09:30: [id number] 00 Safety fall risk Safety Resolve 2018-022019-03-08 Ping factor d 03-20 10:44:00 Kerman present 09:30: [id number] 00 Safety risk for Safety Resolve 2018-022019-03-08 Ping hospitaliza d 03-20 10:44:00 Kerman tion 09:30: [id number] 00 Medication oral med Meds Resolve 2018-022019-03-17 Ping assistance d 03-20 12:30:00 Mallika required 09:30: [id number] 00 Medication injectable Meds Resolve 2018-022019-03-17 Ping med d 03-20 12:30:00 Kerman assistance 09:30: [id number] required 00 Musculoskel transfer Musculoske Resolve 2018-022019-03-08 Ping etal assistance letal d 03-20 10:44:00 Kerman required 09:30: [id number] 00 Musculoskel requires Musculoske Resolve 2018-022019-03-08 Ping etal human letal d 03-20 10:44:00 Kerman assist to 09:30: [id number] leave home 00 24 Hr Diet nutrition NT: 24Hr Resolve 2018-022019-03-07 Randee intake Diet d 2-20 15:10:00 Humphrey deficit 10:20: [id number] 00 24 Hr Diet knowledge/s NT: 24Hr Resolve 2018-022019-02-11 Randee kill Diet d 2-20 10:20:00 Humphrey deficit - 10:20: [id number] pt 00 Nutritional food NT: Resolve 2018-022019-02-11 Randee Barrier storage/pre Barriers d - 10:20:00 Humphrey p deficit 10:20: [id number] 00 Nutritional eating NT: Resolve 2018-022019-02-11 Randee Barrier difficultie Barriers d - 10:20:00 Humphrey s present 10:20: [id number] 00 24 Hr Diet knowledge/s NT: 24Hr Resolve 2019-03-07 Zakia lezama Diet d 03-03 15:10:00 Beatrice deficit - 12:57: [id number] pt 00 Nutritional eating NT: Resolve 2019-03-07 Randee Barrier difficultie Barriers d 03-07 15:10:00 Humphrey s present 15:10: [id number] Nutritional food NT: Resolve 2019-03-07 Randee Barrier storage/pre Barriers d 03-07 15:10:00 Humphrey p deficit 15:10: [id number] Allergies, Adverse Reactions, Alerts Allergy Allergy [...] or plasma high density lipoprotein (HDL) cholesterol [id number] 06:10:00Identifier 2085-9 Result Time 06:10:00Unknown Test Item [...] plasma troponin i.cardiac measurement (mass/ volume)2019-01-12 21:54:00Identifier 91043-1 Result Time 2019-01-12 21:54: 00Unknown Test Item Value Reference Range Comments Serum or plasma troponin i.cardiac 0.01 ng/mL Unknown Unknown F measurement (mass/volume) (test code = 89227-5) Ordering Physician UnknownSerum or plasma alanine aminotransferase measurement ( enzymatic activity/volume)2019-01-12 13:20:00Identifier 1742-6 Result Time 01-12 13:20:00Unknown Test Item Value Reference Range Comments Serum or plasma alanine aminotransferase 11 U/L Unknown Unknown F measurement (enzymatic activity/volume) (test code = 1742-6) Ordering Physician UnknownSerum or plasma albumin/globulin mass [id number] 13:20:00Identifier 1759-0 Result Time 2019-01-12 13:20:00Unknown Test Item Value Reference Range Comments Serum or plasma albumin/globulin mass ratio 1.2 Unknown Unknown F (test code = 1759-0) Ordering Physician UnknownBlood hemoglobin A1C/total hemoglobin By [id number]- 20 13:20:00Identifier 11807-1 Result Time 2019-01-12 13:20:00Unknown Test Item Value Reference Range Comments Blood hemoglobin A1C/total hemoglobin By HPLC 7.5 % Unknown Unknown F (test code = 53326-6) Ordering Physician UnknownSerum or plasma calcium measurement (mass/volume)01-12 13:20:00Identifier 11855-0 Result Time 2019-01-12 13:20:00Unknown Test Item Value Reference Range Comments Serum or plasma calcium measurement 10.8 mg/dL Unknown Unknown F (mass/volume) (test code = 67733-3) Ordering Physician UnknownSerum or plasma aspartate aminotransferase [...] Ordering Physician UnknownSerum or plasma urea nitrogen/creatinine [id number]- 20 13:20:00Identifier 3097-3 Result Time 2019-01-12 13:20:00Unknown Test Item Value Reference Range Comments Serum or plasma urea nitrogen/creatinine 30.6 Unknown Unknown F ratio (test code = 3097-3) Ordering Physician UnknownAutomated blood platelet mean volume jsellzjyyuf0070- 11-20 13:20:00Identifier 29337-1 Result Time 2019-01-12 13:20:00Unknown Test Item Value Reference Range Comments Automated blood platelet mean volume 7.9 fL Unknown Unknown F measurement (test code = 14153-8) Ordering Physician UnknownSerum or plasma anion [id number] 13:20: 00Identifier 88882-5 Result Time 2019-01-12 13:20:00Unknown Test Item Value Reference Range Comments Serum or plasma anion gap (test code = 2 mmol/L Unknown Unknown F 48893-8) Ordering Physician UnknownAutomated blood leukocytes count corrected for nucleated erythrocytes (number/volume)2019-01-12 13:20:00Identifier 68844-3 Result Time 2019-01-12 13:20:00Unknown Test Item Value Reference Range Comments Automated blood leukocytes count 7.6 10^3/uL Unknown Unknown F corrected for nucleated erythrocytes (number/volume) (test code = 38672-7) Ordering Physician UnknownAutomated blood nucleated erythrocytes [id number]- 11-20 13:20:00Identifier 96409-6 Result Time 2019-01-12 13:20:00Unknown Test Item Value Reference Range Comments Automated blood nucleated erythrocytes 0.0 Unknown Unknown F detection (test code = 31286-6) Ordering Physician UnknownErythrocyte sedimentation rate by Westergren [id number] 13:20:00Identifier 4537-7 Result Time 2019-01-12 13:20: 00Unknown [...] Physician UnknownEstimated glomerular filtration rate (GFR) non- Cbyocffu7613-82-99 13:20:00Identifier 32095-9 Result Time 2019-01-12 13: 20:00Unknown Test Item Value Reference Range Comments Estimated glomerular filtration rate (GFR) 79.2 Unknown Unknown F non- (test code = 15110-0) Ordering Physician UnknownAutomated blood monocytes/100 [id number] 13: 20:00Identifier 5905-5 Result Time 2019-01-12 13:20:00Unknown Test Item Value Reference Range Comments Automated blood monocytes/100 leukocytes 6.2 % Unknown Unknown F (test code = 5905-5) Ordering Physician UnknownSerum or plasma albumin measurement by bromocresol green (BCG) dye binding method ([id number] 13:20:00Identifier 88748-1 Result Time 2019-01-12 13:20:00Unknown Test Item Value Reference Range Comments Serum or plasma albumin measurement by 3.6 g/dL Unknown Unknown F bromocresol green (BCG) dye binding method (ma (test code = 36279-6) Ordering Physician UnknownSerum or plasma alkaline phosphatase [...] = 704-7) Ordering Physician UnknownAutomated blood basophils/100 [id number] 13: 20:00Identifier 706-2 Result Time 2019-01-12 13:20:00Unknown [...] = 711-2) Ordering Physician UnknownAutomated blood eosinophils/100 [id number] 13:20:00Identifier 713-8 Result Time 2019-01-12 13:20:00Unknown Test [...] = 731-0) Ordering Physician UnknownAutomated blood lymphocytes/100 [id number] 13:20:00Identifier 736-9 Result Time 2019-01-12 13:20:00Unknown Test Item Value Reference Range Comments Automated blood lymphocytes/100 leukocytes 22.1 % Unknown Unknown F (test code = 736-9) Ordering Physician UnknownBlood monocytes automated count (number/volume)2018-12 13:20:00Identifier 742-7 Result Time 2019-01-12 13:20:00Unknown Test Item Value Reference Range Comments Blood monocytes automated count 0.5 10^3/ul Unknown Unknown F (number/volume) (test code = 742-7) Ordering Physician UnknownAutomated blood neutrophils/100 [id number] 13:20:00Identifier 770-8 Result Time 2019-01-12 13:20:00Unknown Test [...] UnknownAutomated erythrocyte mean corpuscular hemoglobin concentration measurement (mass/nut5288-25-33 13:20:00Identifier 786-4 Result Time 2019-01-12 13:20:00Unknown Test Item Value Reference Range Comments Automated erythrocyte mean corpuscular 33 g/dL Unknown Unknown F hemoglobin concentration measurement (mass/vol (test code = 786-4) Ordering Physician UnknownAutomated erythrocyte mean corpuscular ezylxp4803-72- 20 13:20:00Identifier 787-2 Result Time 2019-01-12 13:20:00Unknown Test Item Value Reference Range Comments Automated erythrocyte mean corpuscular volume 82 fL Unknown Unknown F (test code = 787-2) Ordering Physician UnknownAutomated erythrocyte distribution width [id number]- 20 13:20:00Identifier 788-0 Result Time 2019-01-12 13:20:00Unknown [...] code = 789-8) Ordering Physician UnknownCT biopsy [id number] 13:20:00Identifier [id number] Result Time 2019-01-12 13:20:00Unknown Test Item Value Reference Range Comments CT biopsy liver (test code = JXJ1563) 5.3 10^3/ul Unknown Unknown F Ordering Physician Unknown
--- OUTSIDE RECORDS SUMMARY | 2019-04-30 19:21 | XMS REPORT ---
:1945 Author Organization [facility] Care Team Providers Name Role Phone Unavailable Unavailable Unavailable Problems Condition Condition Condition Status Onset Resolution Last Treating Comments Name Details Category Date Date Treatment Clinician Date Hypertensiv Hypertensiv Diagnosis Active 2018-02 Zakia e heart e heart 03-14 [place] disease disease [id number] without without heart heart failure failure Type 2 Type 2 Diagnosis Active 2018-02 Zakia diabetes diabetes 03-14 [place] mellitus mellitus [id number] without without complicatio complicatio ns ns Postprocedu Postprocedu Diagnosis Active 2018-02 Zakia ral ral 03-14 [place] hypothyroid hypothyroid [id number] ism ism Other Other Diagnosis Active 2018-02 Zakia interverteb interverteb 03-14 [place]rice ral disc ral disc [id number] degeneratio degeneratio n, lumbar n, lumbar region region 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 03-14 [place] pulmonary pulmonary [id number] disease, disease, unspecified unspecified Candidiasis Candidiasis Diagnosis Active 2018-02 Zakia , , 03-14 [place] unspecified unspecified [id number] Hyperlipide Hyperlipide Diagnosis Active Zakia abdullahi, abdullahi, [place] unspecified unspecified [id number] 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, terolemia, [id number] unspecified unspecified Gastro-esop Gastro-esop Diagnosis Active Zakia hageal hageal [place] reflux reflux [id number] disease disease without without esophagitis esophagitis Unspecified Unspecified Diagnosis Active Zakia osteoarthri osteoarthri [place] tis, tis, [id number] unspecified unspecified site site Anemia, Anemia, Diagnosis Active Zakia unspecified unspecified [place] [id number] Dysphagia, Dysphagia, Diagnosis Active Zakia unspecified unspecified [place] [id number] Morbid Morbid Diagnosis Active Zakia (severe) (severe) [place] obesity due obesity due [id number] to excess to excess calories calories 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 Zakia (current) (current) [place] use of use of [id number] insulin insulin Body mass Body mass Diagnosis Active Zakia index (BMI) index (BMI) Beatrice 45.0-49.9, 45.0-49.9, [id number] adult adult prison prison Diagnosis Active Zakia (current) (current) [place] use of use of [id number] aspirin aspirin Personal Personal Diagnosis Active Zakia history of history of [place] nicotine nicotine [id number] dependence dependence Pain frequent Pain Mgmt Resolve 2018-022019-03-08 Ping pain d 03-20 10:44:00 [place] 09:30: [id number] 00 Cardio hypertensio Cardiovasc Active 2018-02 Ping n ular 03-20 [place] 09:30: [id number] 00 Respiratory dyspnea Respirator Active 2018-02 Ping present y 03-20 [place] 09:30: [id number] 00 Respiratory oxygen Respirator Active 2018-02 Ping treatments y 03-20 [place] in home 09:30: [id number] 00 Endo/Trae anti-coagul Endo/Trae Active 2018-02 Ping ation 03-20 [place] therapy 09:30: [id number] 00 Nutrition knowledge/s Nutrition Resolve 2018-022019-03-08 Ping kill d 03-20 10:44:00 [place] deficit: pt 09:30: [id number] 00 Nutrition nutritional Nutrition Resolve 2018-022019-03-08 Ping restriction d 03-20 10:44:00 [place] s 09:30: [id number] 00 Neuro confusion Neuro/Emot Active 2018-02 Ping present ion 03-20 [place] 09:30: [id number] 00 Neuro impaired Neuro/Emot Active 2018-02 Ping decision-ma ion 03-20 [place] promise 09:30: [id number] 00 Activity ADL Activity Active 2018-02 Ping assistance 03-20 [place] required 09:30: [id number] 00 Activity self-care Activity Active 2018-02 Ping deficit 03-20 [place] 09:30: [id number] 00 Safety structural Safety Resolve 2018-022019-03-08 Ping barriers d 03-20 10:44:00 [place] present 09:30: [id number] 00 Safety sanitation Safety Resolve 2018-022019-03-08 Ping hazards d 03-20 10:44:00 [place] present 09:30: [id number] 00 Safety fall risk Safety Resolve 2018-022019-03-08 Ping factor d 03-20 10:44:00 [place] present 09:30: [id number] 00 Safety risk for Safety Resolve 2018-022019-03-08 Ping hospitaliza d 03-20 10:44:00 [place] tion 09:30: [id number] 00 Medication oral med Meds Active 2018-02 Ping assistance 03-20 [place] required 09:30: [id number] 00 Medication injectable Meds Active 2018-02 Ping med 03-20 [place] assistance 09:30: [id number] required 00 Musculoskel transfer Musculoske Resolve 2018-022019-03-08 Ping etal assistance letal d 03-20 10:44:00 [place] required 09:30: [id number] 00 Musculoskel requires Musculoske Resolve 2018-022019-03-08 Ping etal human letal d 03-20 10:44:00 [place] assist to 09:30: [id number] leave home 00 24 Hr Diet nutrition NT: 24Hr Resolve 2018-022019-03-07 [place] intake Diet d 2- 15:10:00 [place] deficit 10:20: [id number] 00 24 Hr Diet knowledge/s NT: 24Hr Resolve 2018-022019-02-11 [place] kill Diet d 2-20 10:20:00 [place] deficit - 10:20: [id number] pt 00 Nutritional food NT: Resolve 2018-022019-02-11 [place] Barrier storage/pre Barriers d 2-20 10:20:00 [place] p deficit 10:20: [id number] 00 Nutritional eating NT: Resolve 2018-022019-02-11 [place] Barrier difficultie Barriers d 2-20 10:20:00 [place] s present 10:20: [id number] 00 24 Hr Diet knowledge/s NT: 24Hr Resolve 2019-03-07 [place] kill Diet d 03-03 15:10:00 [place] deficit - 12:57: [id number] pt 00 Nutritional eating NT: Resolve 2019-03-07 [place] Barrier difficultie Barriers d 03-07 15:10:00 [place] s present 15:10: [id number] 00 Nutritional food NT: Resolve 2019-03-07 [place] Barrier storage/pre Barriers d 03-07 15:10:00 [place] p deficit 15:10: [id number] 00 Allergies, Adverse Reactions, Alerts Allergy Allergy [...] Midura Unknown Unknown Solostar Solostar 03-20 [place] CENETNO U-100 U-100 Insulin 100 Insulin 100 unit/mL [...] or plasma high density lipoprotein (HDL) cholesterol [id number] 06:10:00Identifier 5-9 Result Time 06:10:00Unknown Test Item [...] plasma troponin i.cardiac measurement (mass/ volume)2019-01-12 21:54:00Identifier 31703-5 Result Time 2019-01-12 21:54: 00Unknown Test Item Value Reference Range Comments Serum or plasma troponin i.cardiac 0.01 ng/mL Unknown Unknown F measurement (mass/volume) (test code = 44652-4) Ordering Physician UnknownSerum or plasma alanine aminotransferase measurement ( enzymatic activity/volume)2019-01-12 13:20:00Identifier 1742-6 Result Time 01-12 13:20:00Unknown Test Item Value Reference Range Comments Serum or plasma alanine aminotransferase 11 U/L Unknown Unknown F measurement (enzymatic activity/volume) (test code = 1742-6) Ordering Physician UnknownSerum or plasma albumin/globulin mass [id number] 13:20:00Identifier 1759-0 Result Time 2019-01-12 13:20:00Unknown Test Item Value Reference Range Comments Serum or plasma albumin/globulin mass ratio 1.2 Unknown Unknown F (test code = 1759-0) Ordering Physician UnknownBlood hemoglobin A1C/total hemoglobin By [id number]- 20 13:20:00Identifier 51046-9 Result Time 2019-01-12 13:20:00Unknown Test Item Value Reference Range Comments Blood hemoglobin A1C/total hemoglobin By HPLC 7.5 % Unknown Unknown F (test code = 31700-7) Ordering Physician UnknownSerum or plasma calcium measurement (mass/volume)01-12 13:20:00Identifier 65987-5 Result Time 2019-01-12 13:20:00Unknown Test Item Value Reference Range Comments Serum or plasma calcium measurement 10.8 mg/dL Unknown Unknown F (mass/volume) (test code = 00958-2) Ordering Physician UnknownSerum or plasma aspartate aminotransferase [...] Ordering Physician UnknownSerum or plasma urea nitrogen/creatinine bdtki4722-41- 20 13:20:00Identifier 3097-3 Result Time 2019-01-12 13:20:00Unknown Test Item Value Reference Range Comments Serum or plasma urea nitrogen/creatinine 30.6 Unknown Unknown F ratio (test code = 3097-3) Ordering Physician UnknownAutomated blood platelet mean volume smyyucjfafk3431- 11-20 13:20:00Identifier 37003-4 Result Time 2019-01-12 13:20:00Unknown Test Item Value Reference Range Comments Automated blood platelet mean volume 7.9 fL Unknown Unknown F measurement (test code = 54088-8) Ordering Physician UnknownSerum or plasma anion [id number] 13:20: 00Identifier 11578-7 Result Time 2019-01-12 13:20:00Unknown Test Item Value Reference Range Comments Serum or plasma anion gap (test code = 2 mmol/L Unknown Unknown F 94737-0) Ordering Physician UnknownAutomated blood leukocytes count corrected for nucleated erythrocytes (number/volume)2019-01-12 13:20:00Identifier 69909-1 Result Time 2019-01-12 13:20:00Unknown Test Item Value Reference Range Comments Automated blood leukocytes count 7.6 10^3/uL Unknown Unknown F corrected for nucleated erythrocytes (number/volume) (test code = 25537-4) Ordering Physician UnknownAutomated blood nucleated erythrocytes kkakjehti4412- 11-20 13:20:00Identifier 23844-1 Result Time 2019-01-12 13:20:00Unknown Test Item Value Reference Range Comments Automated blood nucleated erythrocytes 0.0 Unknown Unknown F detection (test code = 06346-7) Ordering Physician UnknownErythrocyte sedimentation rate by Westergren [id number] 13:20:00Identifier 4537-7 Result Time 2019-01-12 13:20: 00Unknown [...] Physician UnknownEstimated glomerular filtration rate (GFR) non- Gueilkla9390-56-23 13:20:00Identifier 71127-6 Result Time 2019-01-12 13: 20:00Unknown Test Item Value Reference Range Comments Estimated glomerular filtration rate (GFR) 79.2 Unknown Unknown F non- (test code = 63353-4) Ordering Physician UnknownAutomated blood monocytes/100 [id number] 13: 20:00Identifier 5905-5 Result Time 2019-01-12 13:20:00Unknown Test Item Value Reference Range Comments Automated blood monocytes/100 leukocytes 6.2 % Unknown Unknown F (test code = 5905-5) Ordering Physician UnknownSerum or plasma albumin measurement by bromocresol green (BCG) dye binding method ([id number] 13:20:00Identifier 81852-4 Result Time 2019-01-12 13:20:00Unknown Test Item Value Reference Range Comments Serum or plasma albumin measurement by 3.6 g/dL Unknown Unknown F bromocresol green (BCG) dye binding method (ma (test code = 50011-3) Ordering Physician UnknownSerum or plasma alkaline phosphatase [...] = 704-7) Ordering Physician UnknownAutomated blood basophils/100 kegylrtrco7110-18-57 13: 20:00Identifier 706-2 Result Time 2019-01-12 13:20:00Unknown [...] = 711-2) Ordering Physician UnknownAutomated blood eosinophils/100 [id number] 13:20:00Identifier 713-8 Result Time 2019-01-12 13:20:00Unknown Test [...] = 731-0) Ordering Physician UnknownAutomated blood lymphocytes/100 [id number] 13:20:00Identifier 736-9 Result Time 2019-01-12 13:20:00Unknown Test Item Value Reference Range Comments Automated blood lymphocytes/100 leukocytes 22.1 % Unknown Unknown F (test code = 736-9) Ordering Physician UnknownBlood monocytes automated count (number/volume)2018-12 13:20:00Identifier 742-7 Result Time 2019-01-12 13:20:00Unknown Test Item Value Reference Range Comments Blood monocytes automated count 0.5 10^3/ul Unknown Unknown F (number/volume) (test code = 742-7) Ordering Physician UnknownAutomated blood neutrophils/100 gbbppnrzqy0757-48-96 13:20:00Identifier 770-8 Result Time 2019-01-12 13:20:00Unknown Test [...] UnknownAutomated erythrocyte mean corpuscular hemoglobin concentration measurement (mass/fub4129-93-56 13:20:00Identifier 786-4 Result Time 2019-01-12 13:20:00Unknown Test Item Value Reference Range Comments Automated erythrocyte mean corpuscular 33 g/dL Unknown Unknown F hemoglobin concentration measurement (mass/vol (test code = 786-4) Ordering Physician UnknownAutomated erythrocyte mean corpuscular gjbdim3654-34- 20 13:20:00Identifier 787-2 Result Time 2019-01-12 13:20:00Unknown Test Item Value Reference Range Comments Automated erythrocyte mean corpuscular volume 82 fL Unknown Unknown F (test code = 787-2) Ordering Physician UnknownAutomated erythrocyte distribution width vnilb6732-22- 20 13:20:00Identifier 788-0 Result Time 2019-01-12 13:20:00Unknown [...] code = 789-8) Ordering Physician UnknownCT biopsy [id number] 13:20:00Identifier [id number] Result Time 2019-01-12 13:20:00Unknown Test Item Value Reference Range Comments CT biopsy liver (test code = ISI6234) 5.3 10^3/ul Unknown Unknown F Ordering Physician Unknown
--- OUTSIDE RECORDS SUMMARY | 2019-04-30 19:21 | XMS REPORT ---
:1945 Author Organization [facility] Care Team Providers Name Role Phone Unavailable Unavailable Unavailable Problems Condition Condition Condition Status Onset Resolution Last Treating Comments Name Details Category Date Date Treatment Clinician Date Hypertensiv Hypertensiv Diagnosis Active 2018-02 Zakia e heart e heart 03-14 Beatrice disease disease [id number] without without heart heart failure failure Type 2 Type 2 Diagnosis Active 2018-02 Zakia diabetes diabetes 03-14 Beatrice mellitus mellitus [id number] without without complicatio complicatio ns ns Postprocedu Postprocedu Diagnosis Active 2018-02 Zakia ral ral 03-14 Beatrice hypothyroid hypothyroid [id number] ism ism Other Other Diagnosis Active 2018-02 Zaika interverteb interverteb 03-14 Beatrice ral disc ral disc [id number] degeneratio degeneratio n, lumbar n, lumbar region region 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 03-14 Beatrice pulmonary pulmonary [id number] disease, disease, unspecified unspecified Candidiasis Candidiasis Diagnosis Active 2018-02 Zakia , , 03-14 Beatrice unspecified unspecified [id number] Hyperlipide Hyperlipide Diagnosis Active Zakia abdullahi, abdullahi, Beatrice unspecified unspecified [id number] 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, terolemia, [id number] unspecified unspecified Gastro-esop Gastro-esop Diagnosis Active Zakia hageal hageal Beatrice reflux reflux [id number] disease disease without without esophagitis esophagitis Unspecified Unspecified Diagnosis Active Zakia osteoarthri osteoarthri Beatrice tis, tis, [id number] unspecified unspecified site site Anemia, Anemia, Diagnosis Active Zakia unspecified unspecified Beatrice [id number] Dysphagia, Dysphagia, Diagnosis Active Zakia unspecified unspecified Beatrice [id number] Morbid Morbid Diagnosis Active Zakia (severe) (severe) Beatrice obesity due obesity due [id number] to excess to excess calories 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 Zakia (current) (current) Beatrice use of use of [id number] insulin insulin Body mass Body mass Diagnosis Active Zakia index (BMI) index (BMI) Beatrice 45.0-49.9, 45.0-49.9, [id number] adult adult FCI FCI Diagnosis Active Zakia (current) (current) Beatrice use of use of [id number] aspirin aspirin Personal Personal Diagnosis Active Zakia history of history of Beatrice 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 Pain frequent Pain Mgmt Resolve 2018-022019-03-08 Ping pain d 03-20 10:44:00 Knott 09:30: [id number] 00 Cardio hypertensio Cardiovasc Resolve 2018-022019-03-17 Ping n ular d 03-20 12:30:00 Knott 09:30: [id number] 00 Respiratory dyspnea Respirator Resolve 2018-022019-03-17 Ping present y d 03-20 12:30:00 Knott 09:30: [id number] 00 Respiratory oxygen Respirator Resolve 2018-022019-03-17 Ping treatments y d 03-20 12:30:00 Mallika in home 09:30: [id number] 00 Endo/Trae anti-coagul Endo/Trae Resolve 2018-022019-03-17 Ping ation d 03-20 12:30:00 Knott therapy 09:30: [id number] Nutrition knowledge/s Nutrition Resolve 2018-022019-03-08 Ping kill d 03-20 10:44:00 Knott deficit: pt 09:30: [id number] Nutrition nutritional Nutrition Resolve 2018-022019-03-08 Ping restriction d 03-20 10:44:00 Mallika s 09:30: [id number] 00 Neuro confusion Neuro/Emot Resolve 2018-022019-03-17 Ping present ion d 03-20 12:30:00 Knott 09:30: [id number] 00 Neuro impaired Neuro/Emot Resolve 2018-022019-03-17 Ping decision-ma ion d 03-20 12:30:00 Knott promise 09:30: [id number] 00 Activity ADL Activity Resolve 2018-022019-03-17 Ping assistance d 03-20 12:30:00 Knott required 09:30: [id number] 00 Activity self-care Activity Resolve 2018-022019-03-17 Ping deficit d 03-20 12:30:00 Mallika 09:30: [id number] 00 Safety structural Safety Resolve 2018-022019-03-08 Ping barriers d 03-20 10:44:00 Mallika present 09:30: [id number] 00 Safety sanitation Safety Resolve 2018-022019-03-08 Ping hazards d 03-20 10:44:00 Knott present 09:30: [id number] 00 Safety fall risk Safety Resolve 2018-022019-03-08 Ping factor d 03-20 10:44:00 Knott present 09:30: [id number] 00 Safety risk for Safety Resolve 2018-022019-03-08 Ping hospitaliza d 03-20 10:44:00 Knott tion 09:30: [id number] 00 Medication oral med Meds Resolve 2018-022019-03-17 Ping assistance d 03-20 12:30:00 Mallika required 09:30: [id number] 00 Medication injectable Meds Resolve 2018-022019-03-17 Ping med d 03-20 12:30:00 Knott assistance 09:30: [id number] required 00 Musculoskel transfer Musculoske Resolve 2018-022019-03-08 Ping etal assistance letal d 03-20 10:44:00 Knott required 09:30: [id number] 00 Musculoskel requires Musculoske Resolve 2018-022019-03-08 Ping etal human letal d 03-20 10:44:00 Knott assist to 09:30: [id number] leave home 00 24 Hr Diet nutrition NT: 24Hr Resolve 2018-022019-03-07 Randee intake Diet d 2-20 15:10:00 [employer] deficit 10:20: [id number] 00 24 Hr Diet knowledge/s NT: 24Hr Resolve 2018-022019-02-11 Randee kill Diet d 2-20 10:20:00 [employer] deficit - 10:20: [id number] pt 00 Nutritional food NT: Resolve 2018-022019-02-11 Randee Barrier storage/pre Barriers d - 10:20:00 [employer] p deficit 10:20: [id number] Nutritional eating NT: Resolve 2018-022019-02-11 Randee Barrier difficultie Barriers d - 10:20:00 [employer] s present 10:20: [id number] 00 24 Hr Diet knowledge/s NT: 24Hr Resolve 2019-03-07 Zakia lezama Diet d 03-03 15:10:00 Beatrice deficit - 12:57: [id number] pt 00 Nutritional eating NT: Resolve 2019-03-07 Randee Barrier difficultie Barriers d 03-07 15:10:00 [employer] s present 15:10: [id number] Nutritional food NT: Resolve 2019-03-07 Randee Barrier storage/pre Barriers d 03-07 15:10:00 [employer] p deficit 15:10: [id number] 00 Allergies, Adverse Reactions, Alerts Allergy Allergy [...] Observation Time Observation Value Comments SYSTOLIC mm[Hg] 2019-03-17 18:10:01 138 mm[Hg] mm[Hg] Method: Sit SYSTOLIC mm[Hg] 2019-01-18 18:09:03 150 mm[Hg] mm[Hg] Method: Stand DIASTOLIC mm[Hg] 2019-03-17 18:10:01 82 mm[Hg] mm[Hg] Method: Sit DIASTOLIC mm[Hg] 2019-01-18 18:09:03 80 mm[Hg] mm[Hg] Method: Stand PULSE 2019-03-17 18:10:01 68 /min /min RESP RATE 2019-03-17 18:10:01 18 /min /min TEMP 2019-03-17 18:10:01 98.1 [degF] Procedures This patient has no [...] or plasma high density lipoprotein (HDL) cholesterol [id number] 06:10:00Identifier 5-9 Result Time 06:10:00Unknown Test Item [...] plasma troponin i.cardiac measurement (mass/ volume)2019-01-12 21:54:00Identifier 61088-2 Result Time 2019-01-12 21:54: 00Unknown Test Item Value Reference Range Comments Serum or plasma troponin i.cardiac 0.01 ng/mL Unknown Unknown F measurement (mass/volume) (test code = 51603-4) Ordering Physician UnknownSerum or plasma alanine aminotransferase measurement ( enzymatic activity/volume)2019-01-12 13:20:00Identifier 1742-6 Result Time 01-12 13:20:00Unknown Test Item Value Reference Range Comments Serum or plasma alanine aminotransferase 11 U/L Unknown Unknown F measurement (enzymatic activity/volume) (test code = 1742-6) Ordering Physician UnknownSerum or plasma albumin/globulin mass matce5095-12-84 13:20:00Identifier 1759-0 Result Time 2019-01-12 13:20:00Unknown Test Item Value Reference Range Comments Serum or plasma albumin/globulin mass ratio 1.2 Unknown Unknown F (test code = 1759-0) Ordering Physician UnknownBlood hemoglobin A1C/total hemoglobin By VFRI1044-01- 20 13:20:00Identifier 60257-2 Result Time 2019-01-12 13:20:00Unknown Test Item Value Reference Range Comments Blood hemoglobin A1C/total hemoglobin By HPLC 7.5 % Unknown Unknown F (test code = 94120-9) Ordering Physician UnknownSerum or plasma calcium measurement (mass/volume)01-12 13:20:00Identifier 03505-8 Result Time 2019-01-12 13:20:00Unknown Test Item Value Reference Range Comments Serum or plasma calcium measurement 10.8 mg/dL Unknown Unknown F (mass/volume) (test code = 27696-3) Ordering Physician UnknownSerum or plasma aspartate aminotransferase [...] Unknown F measurement (mass/volume) (test code = 1974-) Ordering Physician UnknownSerum or plasma C reactive protein measurement (mass/ volume)2019-01-12 13:20:00Identifier 1987- Result Time 2019-01-12 13:20: 00Unknown Test Item Value Reference Range Comments Serum or plasma C reactive protein 13.89 mg/L Unknown Unknown F measurement (mass/volume) (test code = 1988-5) Ordering Physician UnknownSerum or plasma carbon dioxide, total measurement ( moles/volume)2019-01-12 13:20:00Identifier 2027- Result Time 2019-01-12 13:20: 00Unknown Test Item Value Reference Range Comments Serum or plasma carbon dioxide, total 29 mmol/L Unknown Unknown F measurement (moles/volume) (test code = 2027-) Ordering Physician UnknownSerum or plasma chloride measurement (moles/volume) 2019-01-12 13:20:00Identifier 2074-0 Result Time 2019-01-12 13:20:00Unknown Test Item Value Reference Range Comments Serum or plasma chloride measurement 106 mmol/L Unknown Unknown F (moles/volume) (test code = 2074-0) Ordering Physician UnknownSerum or plasma creatinine measurement [...] Ordering Physician UnknownSerum or plasma urea nitrogen/creatinine blqru4215-81- 20 13:20:00Identifier 3097-3 Result Time 2019-01-12 13:20:00Unknown Test Item Value Reference Range Comments Serum or plasma urea nitrogen/creatinine 30.6 Unknown Unknown F ratio (test code = 3097-3) Ordering Physician UnknownAutomated blood platelet mean volume oeswpolewqr4669- 11-20 13:20:00Identifier 26087-0 Result Time 2019-01-12 13:20:00Unknown Test Item Value Reference Range Comments Automated blood platelet mean volume 7.9 fL Unknown Unknown F measurement (test code = 06834-9) Ordering Physician UnknownSerum or plasma anion abo0208-30-08 13:20: 00Identifier 58380-5 Result Time 2019-01-12 13:20:00Unknown Test Item Value Reference Range Comments Serum or plasma anion gap (test code = 2 mmol/L Unknown Unknown F 91984-3) Ordering Physician UnknownAutomated blood leukocytes count corrected for nucleated erythrocytes (number/volume)2019-01-12 13:20:00Identifier 04171-8 Result Time 2019-01-12 13:20:00Unknown Test Item Value Reference Range Comments Automated blood leukocytes count 7.6 10^3/uL Unknown Unknown F corrected for nucleated erythrocytes (number/volume) (test code = 86441-2) Ordering Physician UnknownAutomated blood nucleated erythrocytes gwwuysrak2735- 11-20 13:20:00Identifier 52962-3 Result Time 2019-01-12 13:20:00Unknown Test Item Value Reference Range Comments Automated blood nucleated erythrocytes 0.0 Unknown Unknown F detection (test code = 95241-4) Ordering Physician UnknownErythrocyte sedimentation rate by Westergren pvcugm8964-78-27 13:20:00Identifier 4537-7 Result Time 2019-01-12 13:20: 00Unknown [...] Physician UnknownEstimated glomerular filtration rate (GFR) non- Avffnknv3956-29-70 13:20:00Identifier 50625-4 Result Time 2019-01-12 13: 20:00Unknown Test Item Value Reference Range Comments Estimated glomerular filtration rate (GFR) 79.2 Unknown Unknown F non- (test code = 11808-9) Ordering Physician UnknownAutomated blood monocytes/100 pcswvxnekw5216-32-03 13: 20:00Identifier 5905-5 Result Time 2019-01-12 13:20:00Unknown Test Item Value Reference Range Comments Automated blood monocytes/100 leukocytes 6.2 % Unknown Unknown F (test code = 5905-5) Ordering Physician UnknownSerum or plasma albumin measurement by bromocresol green (BCG) dye binding method (xm7506-17-31 13:20:00Identifier 75934-4 Result Time 2019-01-12 13:20:00Unknown Test Item Value Reference Range Comments Serum or plasma albumin measurement by 3.6 g/dL Unknown Unknown F bromocresol green (BCG) dye binding method (ma (test code = 82957-2) Ordering Physician UnknownSerum or plasma alkaline phosphatase [...] = 704-7) Ordering Physician UnknownAutomated blood basophils/100 mispxxfjch9279-47-67 13: 20:00Identifier 706-2 Result Time 2019-01-12 13:20:00Unknown [...] = 711-2) Ordering Physician UnknownAutomated blood eosinophils/100 ukemrikpzo3153-86-44 13:20:00Identifier 713-8 Result Time 2019-01-12 13:20:00Unknown Test [...] = 731-0) Ordering Physician UnknownAutomated blood lymphocytes/100 grrdnceyeo8683-84-50 13:20:00Identifier 736-9 Result Time 2019-01-12 13:20:00Unknown Test Item Value Reference Range Comments Automated blood lymphocytes/100 leukocytes 22.1 % Unknown Unknown F (test code = 736-9) Ordering Physician UnknownBlood monocytes automated count (number/volume)2018-12 13:20:00Identifier 742-7 Result Time 2019-01-12 13:20:00Unknown Test Item Value Reference Range Comments Blood monocytes automated count 0.5 10^3/ul Unknown Unknown F (number/volume) (test code = 742-7) Ordering Physician UnknownAutomated blood neutrophils/100 kaqqhmfnwm5020-69-30 13:20:00Identifier 770-8 Result Time 2019-01-12 13:20:00Unknown Test [...] UnknownAutomated erythrocyte mean corpuscular hemoglobin concentration measurement (mass/yjz3654-37-25 13:20:00Identifier 786-4 Result Time 2019-01-12 13:20:00Unknown Test Item Value Reference Range Comments Automated erythrocyte mean corpuscular 33 g/dL Unknown Unknown F hemoglobin concentration measurement (mass/vol (test code = 786-4) Ordering Physician UnknownAutomated erythrocyte mean corpuscular sijcce6402-35- 20 13:20:00Identifier 787-2 Result Time 2019-01-12 13:20:00Unknown Test Item Value Reference Range Comments Automated erythrocyte mean corpuscular volume 82 fL Unknown Unknown F (test code = 787-2) Ordering Physician UnknownAutomated erythrocyte distribution width uzixe5817-76- 20 13:20:00Identifier 788-0 Result Time 2019-01-12 13:20:00Unknown [...] code = 789-8) Ordering Physician UnknownCT biopsy [id number] 13:20:00Identifier [id number] Result Time 2019-01-12 13:20:00Unknown Test Item Value Reference Range Comments CT biopsy liver (test code = EFT3857) 5.3 10^3/ul Unknown Unknown F Ordering Physician Unknown
--- OUTSIDE RECORDS SUMMARY | 2019-04-30 19:21 | XMS REPORT ---
:1945 Author Organization [facility] Care Team Providers Name Role Phone Unavailable Unavailable Unavailable Problems Condition Condition Condition Status Onset Resolution Last Treating Comments Name Details Category Date Date Treatment Clinician Date Hypertensiv Hypertensiv Diagnosis Active 2018-02 Zakia e heart e heart 03-14 [place] disease disease [id number] without without heart heart failure failure Type 2 Type 2 Diagnosis Active 2018-02 Zakia diabetes diabetes 03-14 [place] mellitus mellitus [id number] without without complicatio complicatio ns ns Postprocedu Postprocedu Diagnosis Active 2018-02 Zakia ral ral 03-14 [place] hypothyroid hypothyroid [id number] ism ism Other Other Diagnosis Active 2018-02 Zakia interverteb interverteb 03-14 [place] ral disc ral disc [id number] degeneratio degeneratio n, lumbar n, lumbar region region 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 03-14 [place] pulmonary pulmonary [id number] disease, disease, unspecified unspecified Candidiasis Candidiasis Diagnosis Active 2018-02 Zakia , , 03-14 [place] unspecified unspecified [id number] Hyperlipide Hyperlipide Diagnosis Active Zakia abdullahi, abdullahi, [place] unspecified unspecified [id number] 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, terolemia, [id number] unspecified unspecified Gastro-esop Gastro-esop Diagnosis Active Zakia hageal hageal [place] reflux reflux [id number] disease disease without without esophagitis esophagitis Unspecified Unspecified Diagnosis Active Zakia osteoarthri osteoarthri [place] tis, tis, [id number] unspecified unspecified site site Anemia, Anemia, Diagnosis Active Zakia unspecified unspecified [place] [id number] Dysphagia, Dysphagia, Diagnosis Active Zakia unspecified unspecified Beatrice [id number] Morbid Morbid Diagnosis Active Zakia (severe) (severe) [place] obesity due obesity due [id number] to excess to excess calories calories 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 Zakia (current) (current) [place] use of use of [id number] insulin insulin Body mass Body mass Diagnosis Active Zakia index (BMI) index (BMI) [place] 45.0-49.9, 45.0-49.9, [id number] adult adult 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 Zakia (current) (current) [place] use of use of [id number] aspirin aspirin Personal Personal Diagnosis Active Zakia history of history of [place] nicotine nicotine [id number] dependence dependence Pain frequent Pain Mgmt Active 2018-02 Ping pain 03-20 [place] 09:30: [id number] 00 Cardio hypertensio Cardiovasc Active 2018-02 Ping n ular 03-20 [place] 09:30: [id number] 00 Respiratory dyspnea Respirator Active 2018-02 Ping present y 03-20 [place] 09:30: [id number] 00 Respiratory oxygen Respirator Active 2018-02 Ping treatments y 03-20 [place] in home 09:30: [id number] 00 Endo/Trae anti-coagul Endo/Trae Active 2018-02 Ping ation 03-20 [place] therapy 09:30: [id number] 00 Nutrition knowledge/s Nutrition Active 2018-02 Ping kill 03-20 [place] deficit: pt 09:30: [id number] 00 Nutrition nutritional Nutrition Active 2018-02 Ping restriction 03-20 [place] s 09:30: [id number] 00 Neuro confusion Neuro/Emot Active 2018-02 Ping present ion 03-20 [place] 09:30: [id number] 00 Neuro impaired Neuro/Emot Active 2018-02 Ping decision-ma ion 03-20 [place] promise 09:30: [id number] 00 Activity ADL Activity Active 2018-02 Ping assistance 03-20 [place] required 09:30: [id number] 00 Activity self-care Activity Active 2018-02 Ping deficit 03-20 [place] 09:30: [id number] 00 Safety structural Safety Active 2018-02 Ping barriers 03-20 [facility] 09:30: [id number] 00 Safety sanitation Safety Active 2018-02 Ping hazards 03-20 [place] present 09:30: [id number] 00 Safety fall risk Safety Active 2018-02 Ping factor 03-20 [place] present 09:30: [id number] 00 Safety risk for Safety Active 2018-02 Pign hospitaliza 03-20 [place] tion 09:30: [id number] 00 Medication oral med Meds Active 2018-02 [facility] assistance 03-20 [place] required 09:30: [id number] 00 Medication injectable Meds Active 2018-02 Ping med 03-20 [place] assistance 09:30: [id number] required 00 Musculoskel transfer Musculoske Active 2018-02 Ping etal assistance letal 03-20 [place] required 09:30: [id number] 00 Musculoskel requires Musculoske Active 2018-02 Ping etal human letal 03-20 [place] assist to 09:30: [id number] leave home 00 24 Hr Diet nutrition NT: 24Hr Active 2018-02 [place] intake Diet 2- [place] deficit 10:20: [id number] 00 24 Hr Diet knowledge/s NT: 24Hr Resolve 2018-022019-02-11 [place] kill Diet d 2-20 10:20:00 [place] deficit - 10:20: [id number] pt 00 Nutritional food NT: Resolve 2018-022019-02-11 [place] Barrier storage/pre Barriers d 2-20 10:20:00 [place] p deficit 10:20: [id number] Nutritional eating NT: Resolve 2018-022019-02-11 [place] Barrier difficultie Barriers d 2-20 10:20:00 [place] present 10:20: [id number] 00 24 Hr Diet knowledge/s NT: 24Hr Active Zakia kill Diet 03-03 [place] deficit - 12:57: [id number] pt 00 Allergies, Adverse Reactions, Alerts Allergy [...] or plasma high density lipoprotein (HDL) cholesterol whmruwvhysp4002-54-05 06:10:00Identifier 5-9 Result Time 06:10:00Unknown Test Item [...] plasma troponin i.cardiac measurement (mass/ volume)2019-01-12 21:54:00Identifier 68845-6 Result Time 2019-01-12 21:54: 00Unknown Test Item Value Reference Range Comments Serum or plasma troponin i.cardiac 0.01 ng/mL Unknown Unknown F measurement (mass/volume) (test code = 10409-4) Ordering Physician UnknownSerum or plasma alanine aminotransferase measurement ( enzymatic activity/volume)2019-01-12 13:20:00Identifier 1742-6 Result Time 01-12 13:20:00Unknown Test Item Value Reference Range Comments Serum or plasma alanine aminotransferase 11 U/L Unknown Unknown F measurement (enzymatic activity/volume) (test code = 1742-6) Ordering Physician UnknownSerum or plasma albumin/globulin mass [id number] 13:20:00Identifier 1759-0 Result Time 2019-01-12 13:20:00Unknown Test Item Value Reference Range Comments Serum or plasma albumin/globulin mass ratio 1.2 Unknown Unknown F (test code = 1759-0) Ordering Physician UnknownBlood hemoglobin A1C/total hemoglobin By [id number]- 20 13:20:00Identifier 89067-0 Result Time 2019-01-12 13:20:00Unknown Test Item Value Reference Range Comments Blood hemoglobin A1C/total hemoglobin By HPLC 7.5 % Unknown Unknown F (test code = 40035-7) Ordering Physician UnknownSerum or plasma calcium measurement (mass/volume)01-12 13:20:00Identifier 45625-6 Result Time 2019-01-12 13:20:00Unknown Test Item Value Reference Range Comments Serum or plasma calcium measurement 10.8 mg/dL Unknown Unknown F (mass/volume) (test code = 69574-5) Ordering Physician UnknownSerum or plasma aspartate aminotransferase [...] Ordering Physician UnknownSerum or plasma urea nitrogen/creatinine ojczk1075-83- 20 13:20:00Identifier 3097-3 Result Time 2019-01-12 13:20:00Unknown Test Item Value Reference Range Comments Serum or plasma urea nitrogen/creatinine 30.6 Unknown Unknown F ratio (test code = 3097-3) Ordering Physician UnknownAutomated blood platelet mean volume hgcxjlpodrn0945- 11-20 13:20:00Identifier 47097-1 Result Time 2019-01-12 13:20:00Unknown Test Item Value Reference Range Comments Automated blood platelet mean volume 7.9 fL Unknown Unknown F measurement (test code = 56821-9) Ordering Physician UnknownSerum or plasma anion [id number] 13:20: 00Identifier 83011-1 Result Time 2019-01-12 13:20:00Unknown Test Item Value Reference Range Comments Serum or plasma anion gap (test code = 2 mmol/L Unknown Unknown F 66046-6) Ordering Physician UnknownAutomated blood leukocytes count corrected for nucleated erythrocytes (number/volume)2019-01-12 13:20:00Identifier 80455-1 Result Time 2019-01-12 13:20:00Unknown Test Item Value Reference Range Comments Automated blood leukocytes count 7.6 10^3/uL Unknown Unknown F corrected for nucleated erythrocytes (number/volume) (test code = 05996-8) Ordering Physician UnknownAutomated blood nucleated erythrocytes vwepyciqk6224- 11-20 13:20:00Identifier 88882-4 Result Time 2019-01-12 13:20:00Unknown Test Item Value Reference Range Comments Automated blood nucleated erythrocytes 0.0 Unknown Unknown F detection (test code = 02188-1) Ordering Physician UnknownErythrocyte sedimentation rate by Westergren pwcwol7070-38-55 13:20:00Identifier 4537-7 Result Time 2019-01-12 13:20: 00Unknown [...] Physician UnknownEstimated glomerular filtration rate (GFR) non- Zorecdgn4080-91-13 13:20:00Identifier 71510-2 Result Time 2019-01-12 13: 20:00Unknown Test Item Value Reference Range Comments Estimated glomerular filtration rate (GFR) 79.2 Unknown Unknown F non- (test code = 81682-5) Ordering Physician UnknownAutomated blood monocytes/100 etwljwkmbw4145-20-24 13: 20:00Identifier 5905-5 Result Time 2019-01-12 13:20:00Unknown Test Item Value Reference Range Comments Automated blood monocytes/100 leukocytes 6.2 % Unknown Unknown F (test code = 5905-5) Ordering Physician UnknownSerum or plasma albumin measurement by bromocresol green (BCG) dye binding method ([id number] 13:20:00Identifier 18280-5 Result Time 2019-01-12 13:20:00Unknown Test Item Value Reference Range Comments Serum or plasma albumin measurement by 3.6 g/dL Unknown Unknown F bromocresol green (BCG) dye binding method (ma (test code = 45139-8) Ordering Physician UnknownSerum or plasma alkaline phosphatase [...] = 704-7) Ordering Physician UnknownAutomated blood basophils/100 zxajsrpapc3315-99-71 13: 20:00Identifier 706-2 Result Time 2019-01-12 13:20:00Unknown [...] = 711-2) Ordering Physician UnknownAutomated blood eosinophils/100 dcwyhmtsld6367-83-73 13:20:00Identifier 713-8 Result Time 2019-01-12 13:20:00Unknown Test [...] = 731-0) Ordering Physician UnknownAutomated blood lymphocytes/100 lozvuftxau2789-34-58 13:20:00Identifier 736-9 Result Time 2019-01-12 13:20:00Unknown Test Item Value Reference Range Comments Automated blood lymphocytes/100 leukocytes 22.1 % Unknown Unknown F (test code = 736-9) Ordering Physician UnknownBlood monocytes automated count (number/volume)2018-12 13:20:00Identifier 742-7 Result Time 2019-01-12 13:20:00Unknown Test Item Value Reference Range Comments Blood monocytes automated count 0.5 10^3/ul Unknown Unknown F (number/volume) (test code = 742-7) Ordering Physician UnknownAutomated blood neutrophils/100 uuxckcxiot0295-98-03 13:20:00Identifier 770-8 Result Time 2019-01-12 13:20:00Unknown Test [...] UnknownAutomated erythrocyte mean corpuscular hemoglobin concentration measurement (mass/vff3364-49-94 13:20:00Identifier 786-4 Result Time 2019-01-12 13:20:00Unknown Test Item Value Reference Range Comments Automated erythrocyte mean corpuscular 33 g/dL Unknown Unknown F hemoglobin concentration measurement (mass/vol (test code = 786-4) Ordering Physician UnknownAutomated erythrocyte mean corpuscular tohyyo8617-88- 20 13:20:00Identifier 787-2 Result Time 2019-01-12 13:20:00Unknown Test Item Value Reference Range Comments Automated erythrocyte mean corpuscular volume 82 fL Unknown Unknown F (test code = 787-2) Ordering Physician UnknownAutomated erythrocyte distribution width ftaza3059-62- 20 13:20:00Identifier 788-0 Result Time 2019-01-12 13:20:00Unknown [...] code = 789-8) Ordering Physician UnknownCT biopsy piztl1754-12-10 13:20:00Identifier [id number] Result Time 2019-01-12 13:20:00Unknown Test Item Value Reference Range Comments CT biopsy liver (test code = ETA2381) 5.3 10^3/ul Unknown Unknown F Ordering Physician Unknown
--- OUTSIDE RECORDS SUMMARY | 2019-04-30 19:21 | XMS REPORT ---
:1945 Author Organization [facility] Care Team Providers Name Role Phone Unavailable Unavailable Unavailable Problems Condition Condition Condition Status Onset Resolution Last Treating Comments Name Details Category Date Date Treatment Clinician Date Hypertensiv Hypertensiv Diagnosis Active 2018-02 Zakia e heart e heart 03-14 [place] disease disease [id number] without without heart heart failure failure Type 2 Type 2 Diagnosis Active 2018-02 Zakia diabetes diabetes 03-14 [place] mellitus mellitus [id number] without without complicatio complicatio ns ns Postprocedu Postprocedu Diagnosis Active 2018-02 Zakia ral ral 03-14 [place] hypothyroid hypothyroid [id number] ism ism Other Other Diagnosis Active 2018-02 Zakia interverteb interverteb 03-14 [place] ral disc ral disc [id number] degeneratio degeneratio n, lumbar n, lumbar region region 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 03-14 [place] pulmonary pulmonary [id number] disease, disease, unspecified unspecified Candidiasis Candidiasis Diagnosis Active 2018-02 Zakia , , 03-14 [place] unspecified unspecified [id number] Hyperlipide Hyperlipide Diagnosis Active Zakia abdullahi, abdullahi, [place] unspecified unspecified [id number] 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, terolemia, [id number] unspecified unspecified Gastro-esop Gastro-esop Diagnosis Active Zakia hageal hageal [place] reflux reflux [id number] disease disease without without esophagitis esophagitis Unspecified Unspecified Diagnosis Active Zakia osteoarthri osteoarthri [place] tis, tis, [id number] unspecified unspecified site site Anemia, Anemia, Diagnosis Active Zakia unspecified unspecified [place] [id number] Dysphagia, Dysphagia, Diagnosis Active Zakia unspecified unspecified Beatrice [id number] Morbid Morbid Diagnosis Active Zakia (severe) (severe) [place] obesity due obesity due [id number] to excess to excess calories 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 Zakia (current) (current) [place] use of use of [id number] insulin insulin Body mass Body mass Diagnosis Active Zakia index (BMI) index (BMI) [place] 45.0-49.9, 45.0-49.9, [id number] adult adult skilled nursing skilled nursing Diagnosis Active Zakia (current) (current) [place] use of use of [id number] aspirin aspirin Personal Personal Diagnosis Active Zakia history of history of [place] nicotine nicotine [id number] dependence dependence Pain frequent Pain Mgmt Resolve 2018-022019-03-08 Ping pain d 03-20 10:44:00 [place] 09:30: [id number] 00 Cardio hypertensio Cardiovasc Active 2018-02 Ping n ular 03-20 [place] 09:30: [id number] 00 Respiratory dyspnea Respirator Active 2018-02 Ping present y 03-20 [place] 09:30: [id number] 00 Respiratory oxygen Respirator Active 2018-02 Ping treatments y 03-20 [place] in home 09:30: [id number] 00 Endo/Trae anti-coagul Endo/Trae Active 2018-02 Ping ation 03-20 [place] therapy 09:30: [id number] 00 Nutrition knowledge/s Nutrition Resolve 2018-022019-03-08 Ping kill d 03-20 10:44:00 [place] deficit: pt 09:30: [id number] 00 Nutrition nutritional Nutrition Resolve 2018-022019-03-08 Ping restriction d 03-20 10:44:00 [place] s 09:30: [id number] 00 Neuro confusion Neuro/Emot Active 2018-02 Ping present ion 03-20 [place] 09:30: [id number] 00 Neuro impaired Neuro/Emot Active 2018-02 Ping decision-ma ion 03-20 [place] promise 09:30: [id number] 00 Activity ADL Activity Active 2018-02 Ping assistance 03-20 [place] required 09:30: [id number] 00 Activity self-care Activity Active 2018-02 Ping deficit 03-20 [place] 09:30: [id number] 00 Safety structural Safety Resolve 2018-022019-03-08 Ping barriers d 03-20 10:44:00 [place] present 09:30: [id number] 00 Safety sanitation Safety Resolve 2018-022019-03-08 Ping hazards d 03-20 10:44:00 [place] present 09:30: [id number] 00 Safety fall risk Safety Resolve 2018-022019-03-08 Ping factor d 03-20 10:44:00 [place] present 09:30: [id number] 00 Safety risk for Safety Resolve 2018-022019-03-08 Ping hospitaliza d 03-20 10:44:00 [place] tion 09:30: [id number] 00 Medication oral med Meds Active 2018-02 Ping assistance 03-20 [place] required 09:30: [id number] 00 Medication injectable Meds Active 2018-02 Ping med 03-20 [place] assistance 09:30: [id number] required 00 Musculoskel transfer Musculoske Resolve 2018-022019-03-08 Ping etal assistance letal d 03-20 10:44:00 [place] required 09:30: [id number] 00 Musculoskel requires Musculoske Resolve 2018-022019-03-08 Ping etal human letal d 03-20 10:44:00 [place] assist to 09:30: [id number] leave home 00 24 Hr Diet nutrition NT: 24Hr Resolve 2018-022019-03-07 [place] intake Diet d 2- 15:10:00 [place] deficit 10:20: [id number] 00 24 Hr Diet knowledge/s NT: 24Hr Resolve 2018-022019-02-11 [place] kill Diet d 2-20 10:20:00 [place] deficit - 10:20: [id number] pt 00 Nutritional food NT: Resolve 2018-022019-02-11 [place] Barrier storage/pre Barriers d 2-20 10:20:00 [place] p deficit 10:20: [id number] 00 Nutritional eating NT: Resolve 2018-022019-02-11 [place] Barrier difficultie Barriers d 2-20 10:20:00 [place] s present 10:20: [id number] 00 24 Hr Diet knowledge/s NT: 24Hr Resolve 2019-03-07 [place] kill Diet d 03-03 15:10:00 [place] deficit - 12:57: [id number] pt 00 Nutritional eating NT: Resolve 2019-03-07 [place] Barrier difficultie Barriers d 03-07 15:10:00 [place] s present 15:10: [id number] 00 Nutritional food NT: Resolve 2019-03-07 [place] Barrier storage/pre Barriers d 03-07 15:10:00 [place] p deficit 15:10: [id number] 00 Allergies, Adverse Reactions, Alerts Allergy Allergy [...] or plasma high density lipoprotein (HDL) cholesterol qncqxmxivgl5783-68-48 06:10:00Identifier 5-9 Result Time 06:10:00Unknown Test Item [...] plasma troponin i.cardiac measurement (mass/ volume)2019-01-12 21:54:00Identifier 39238-6 Result Time 2019-01-12 21:54: 00Unknown Test Item Value Reference Range Comments Serum or plasma troponin i.cardiac 0.01 ng/mL Unknown Unknown F measurement (mass/volume) (test code = 26937-0) Ordering Physician UnknownSerum or plasma alanine aminotransferase measurement ( enzymatic activity/volume)2019-01-12 13:20:00Identifier 1742-6 Result Time 01-12 13:20:00Unknown Test Item Value Reference Range Comments Serum or plasma alanine aminotransferase 11 U/L Unknown Unknown F measurement (enzymatic activity/volume) (test code = 1742-6) Ordering Physician UnknownSerum or plasma albumin/globulin mass [id number] 13:20:00Identifier 1759-0 Result Time 2019-01-12 13:20:00Unknown Test Item Value Reference Range Comments Serum or plasma albumin/globulin mass ratio 1.2 Unknown Unknown F (test code = 1759-0) Ordering Physician UnknownBlood hemoglobin A1C/total hemoglobin By [id number]- 20 13:20:00Identifier 91516-7 Result Time 2019-01-12 13:20:00Unknown Test Item Value Reference Range Comments Blood hemoglobin A1C/total hemoglobin By HPLC 7.5 % Unknown Unknown F (test code = 41649-7) Ordering Physician UnknownSerum or plasma calcium measurement (mass/volume)01-12 13:20:00Identifier 45204-1 Result Time 2019-01-12 13:20:00Unknown Test Item Value Reference Range Comments Serum or plasma calcium measurement 10.8 mg/dL Unknown Unknown F (mass/volume) (test code = 80279-1) Ordering Physician UnknownSerum or plasma aspartate aminotransferase [...] Ordering Physician UnknownSerum or plasma urea nitrogen/creatinine cpdju3348-09- 20 13:20:00Identifier 3097-3 Result Time 2019-01-12 13:20:00Unknown Test Item Value Reference Range Comments Serum or plasma urea nitrogen/creatinine 30.6 Unknown Unknown F ratio (test code = 3097-3) Ordering Physician UnknownAutomated blood platelet mean volume bgegdmsnetd4285- 11-20 13:20:00Identifier 82333-8 Result Time 2019-01-12 13:20:00Unknown Test Item Value Reference Range Comments Automated blood platelet mean volume 7.9 fL Unknown Unknown F measurement (test code = 19933-8) Ordering Physician UnknownSerum or plasma anion [id number] 13:20: 00Identifier 02123-9 Result Time 2019-01-12 13:20:00Unknown Test Item Value Reference Range Comments Serum or plasma anion gap (test code = 2 mmol/L Unknown Unknown F 55060-8) Ordering Physician UnknownAutomated blood leukocytes count corrected for nucleated erythrocytes (number/volume)2019-01-12 13:20:00Identifier 53077-6 Result Time 2019-01-12 13:20:00Unknown Test Item Value Reference Range Comments Automated blood leukocytes count 7.6 10^3/uL Unknown Unknown F corrected for nucleated erythrocytes (number/volume) (test code = 68944-4) Ordering Physician UnknownAutomated blood nucleated erythrocytes dqzaufwyp1877- 11-20 13:20:00Identifier 63061-6 Result Time 2019-01-12 13:20:00Unknown Test Item Value Reference Range Comments Automated blood nucleated erythrocytes 0.0 Unknown Unknown F detection (test code = 62407-3) Ordering Physician UnknownErythrocyte sedimentation rate by Westergren jwpxhj8887-95-26 13:20:00Identifier 4537-7 Result Time 2019-01-12 13:20: 00Unknown [...] Physician UnknownEstimated glomerular filtration rate (GFR) non- Qctlldsn6923-56-78 13:20:00Identifier 63872-7 Result Time 2019-01-12 13: 20:00Unknown Test Item Value Reference Range Comments Estimated glomerular filtration rate (GFR) 79.2 Unknown Unknown F non- (test code = 27030-8) Ordering Physician UnknownAutomated blood monocytes/100 [id number] 13: 20:00Identifier 5905-5 Result Time 2019-01-12 13:20:00Unknown Test Item Value Reference Range Comments Automated blood monocytes/100 leukocytes 6.2 % Unknown Unknown F (test code = 5905-5) Ordering Physician UnknownSerum or plasma albumin measurement by bromocresol green (BCG) dye binding method (np1061-36-51 13:20:00Identifier 45981-8 Result Time 2019-01-12 13:20:00Unknown Test Item Value Reference Range Comments Serum or plasma albumin measurement by 3.6 g/dL Unknown Unknown F bromocresol green (BCG) dye binding method (ma (test code = 97183-0) Ordering Physician UnknownSerum or plasma alkaline phosphatase [...] = 704-7) Ordering Physician UnknownAutomated blood basophils/100 ucsyzrifdq4749-84-21 13: 20:00Identifier 706-2 Result Time 2019-01-12 13:20:00Unknown [...] = 711-2) Ordering Physician UnknownAutomated blood eosinophils/100 abgmcelxmf2925-48-48 13:20:00Identifier 713-8 Result Time 2019-01-12 13:20:00Unknown Test [...] = 731-0) Ordering Physician UnknownAutomated blood lymphocytes/100 acwiwyeuyj4604-41-83 13:20:00Identifier 736-9 Result Time 2019-01-12 13:20:00Unknown Test Item Value Reference Range Comments Automated blood lymphocytes/100 leukocytes 22.1 % Unknown Unknown F (test code = 736-9) Ordering Physician UnknownBlood monocytes automated count (number/volume)2018-12 13:20:00Identifier 742-7 Result Time 2019-01-12 13:20:00Unknown Test Item Value Reference Range Comments Blood monocytes automated count 0.5 10^3/ul Unknown Unknown F (number/volume) (test code = 742-7) Ordering Physician UnknownAutomated blood neutrophils/100 pbltfjqbkh5701-40-91 13:20:00Identifier 770-8 Result Time 2019-01-12 13:20:00Unknown Test [...] UnknownAutomated erythrocyte mean corpuscular hemoglobin concentration measurement (mass/xgv9770-74-47 13:20:00Identifier 786-4 Result Time 2019-01-12 13:20:00Unknown Test Item Value Reference Range Comments Automated erythrocyte mean corpuscular 33 g/dL Unknown Unknown F hemoglobin concentration measurement (mass/vol (test code = 786-4) Ordering Physician UnknownAutomated erythrocyte mean corpuscular itqafr1400-63- 20 13:20:00Identifier 787-2 Result Time 2019-01-12 13:20:00Unknown Test Item Value Reference Range Comments Automated erythrocyte mean corpuscular volume 82 fL Unknown Unknown F (test code = 787-2) Ordering Physician UnknownAutomated erythrocyte distribution width wqliv2963-44- 20 13:20:00Identifier 788-0 Result Time 2019-01-12 13:20:00Unknown [...] code = 789-8) Ordering Physician UnknownCT biopsy [id number] 13:20:00Identifier [id number] Result Time 2019-01-12 13:20:00Unknown Test Item Value Reference Range Comments CT biopsy liver (test code = GQZ0013) 5.3 10^3/ul Unknown Unknown F Ordering Physician Unknown
--- OUTSIDE RECORDS SUMMARY | 2019-04-30 19:21 | XMS REPORT ---
:1945 Author Organization [facility] Care Team Providers Name Role Phone Unavailable Unavailable Unavailable Problems Condition Condition Condition Status Onset Resolution Last Treating Comments Name Details Category Date Date Treatment Clinician Date Hypertensiv Hypertensiv Diagnosis Active 2018-02 Zakia e heart e heart 03-14 [place] disease disease [id number] without without heart heart failure failure Type 2 Type 2 Diagnosis Active 2018-02 Zakia diabetes diabetes 03-14 [place] mellitus mellitus [id number] without without complicatio complicatio ns ns Postprocedu Postprocedu Diagnosis Active 2018-02 Zakia ral ral 03-14 [place] hypothyroid hypothyroid [id number] ism ism Other Other Diagnosis Active 2018-02 Zakia interverteb interverteb 03-14 [place] ral disc ral disc [id number] degeneratio degeneratio n, lumbar n, lumbar region region 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 03-14 [place] pulmonary pulmonary [id number] disease, disease, unspecified unspecified Candidiasis Candidiasis Diagnosis Active 2018-02 Zakia , , 03-14 [place] unspecified unspecified [id number] Hyperlipide Hyperlipide Diagnosis Active Zakia abdullahi, abdullahi, [place] unspecified unspecified [id number] 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, terolemia, [id number] unspecified unspecified Gastro-esop Gastro-esop Diagnosis Active Zakia hageal hageal [place] reflux reflux [id number] disease disease without without esophagitis esophagitis Unspecified Unspecified Diagnosis Active Zakia osteoarthri osteoarthri [place] tis, tis, [id number] unspecified unspecified site site Anemia, Anemia, Diagnosis Active Zakia unspecified unspecified [place] [id number] Dysphagia, Dysphagia, Diagnosis Active Zakia unspecified unspecified [place] [id number] Morbid Morbid Diagnosis Active Zakia (severe) (severe) [place] obesity due obesity due [id number] to excess to excess calories calories 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 Zakia (current) (current) [place] use of use of [id number] insulin insulin Body mass Body mass Diagnosis Active Zakia index (BMI) index (BMI) [place] 45.0-49.9, 45.0-49.9, [id number] adult adult jail jail Diagnosis Active Zakia (current) (current) [place] use of use of [id number] aspirin aspirin Personal Personal Diagnosis Active Zakia history of history of [place] nicotine nicotine [id number] dependence dependence Pain frequent Pain Mgmt Resolve 2018-022019-03-08 Ping pain d 03-20 10:44:00 [place] 09:30: [id number] 00 Cardio hypertensio Cardiovasc Active 2018-02 Ping n ular 03-20 [place] 09:30: [id number] 00 Respiratory dyspnea Respirator Active 2018-02 Ping present y 03-20 [place] 09:30: [id number] 00 Respiratory oxygen Respirator Active 2018-02 Ping treatments y 03-20 [place] in home 09:30: [id number] 00 Endo/Trae anti-coagul Endo/Trae Active 2018-02 Ping ation 03-20 [place] therapy 09:30: [id number] 00 Nutrition knowledge/s Nutrition Resolve 2018-022019-03-08 Ping kill d 03-20 10:44:00 [place] deficit: pt 09:30: [id number] 00 Nutrition nutritional Nutrition Resolve 2018-022019-03-08 Ping restriction d 03-20 10:44:00 [place] s 09:30: [id number] 00 Neuro confusion Neuro/Emot Active 2018-02 Ping present ion 03-20 [place] 09:30: [id number] 00 Neuro impaired Neuro/Emot Active 2018-02 Ping decision-ma ion 03-20 [place] promise 09:30: [id number] 00 Activity ADL Activity Active 2018-02 Ping assistance 03-20 [place] required 09:30: [id number] 00 Activity self-care Activity Active 2018-02 Ping deficit 03-20 [place] 09:30: [id number] 00 Safety structural Safety Resolve 2018-022019-03-08 Ping barriers d 03-20 10:44:00 [place] present 09:30: [id number] 00 Safety sanitation Safety Resolve 2018-022019-03-08 Ping hazards d 03-20 10:44:00 [place] present 09:30: [id number] 00 Safety fall risk Safety Resolve 2018-022019-03-08 Ping factor d 03-20 10:44:00 [place] present 09:30: [id number] 00 Safety risk for Safety Resolve 2018-022019-03-08 Ping hospitaliza d 03-20 10:44:00 [place] tion 09:30: [id number] 00 Medication oral med Meds Active 2018-02 Ping assistance 03-20 [place] required 09:30: [id number] 00 Medication injectable Meds Active 2018-02 Ping med 03-20 [place] assistance 09:30: [id number] required 00 Musculoskel transfer Musculoske Resolve 2018-022019-03-08 Ping etal assistance letal d 03-20 10:44:00 [place] required 09:30: [id number] 00 Musculoskel requires Musculoske Resolve 2018-022019-03-08 Ping etal human letal d 03-20 10:44:00 [place] assist to 09:30: [id number] leave home 00 24 Hr Diet nutrition NT: 24Hr Resolve 2018-022019-03-07 [place] intake Diet d 2- 15:10:00 [place] deficit 10:20: [id number] 00 24 Hr Diet knowledge/s NT: 24Hr Resolve 2018-022019-02-11 [place] kill Diet d 2-20 10:20:00 [place] deficit - 10:20: [id number] pt 00 Nutritional food NT: Resolve 2018-022019-02-11 [place] Barrier storage/pre Barriers d 2-20 10:20:00 [place] p deficit 10:20: [id number] 00 Nutritional eating NT: Resolve 2018-022019-02-11 [place] Barrier difficultie Barriers d 2-20 10:20:00 [place] s present 10:20: [id number] 00 24 Hr Diet knowledge/s NT: 24Hr Resolve 2019-03-07 [place] kill Diet d 03-03 15:10:00 [place] deficit - 12:57: [id number] pt 00 Nutritional eating NT: Resolve 2019-03-07 [place] Barrier difficultie Barriers d 03-07 15:10:00 [place] s present 15:10: [id number] Nutritional food NT: Resolve 2019-03-07 [place] Barrier storage/pre Barriers d 03-07 15:10:00 [place] p deficit 15:10: [id number] 00 Allergies, Adverse Reactions, Alerts Allergy Allergy [...] or plasma high density lipoprotein (HDL) cholesterol [id number] 06:10:00Identifier 5-9 Result Time 06:10:00Unknown Test Item [...] plasma troponin i.cardiac measurement (mass/ volume)2019-01-12 21:54:00Identifier 93835-4 Result Time 2019-01-12 21:54: 00Unknown Test Item Value Reference Range Comments Serum or plasma troponin i.cardiac 0.01 ng/mL Unknown Unknown F measurement (mass/volume) (test code = 34304-0) Ordering Physician UnknownSerum or plasma alanine aminotransferase measurement ( enzymatic activity/volume)2019-01-12 13:20:00Identifier 1742-6 Result Time 01-12 13:20:00Unknown Test Item Value Reference Range Comments Serum or plasma alanine aminotransferase 11 U/L Unknown Unknown F measurement (enzymatic activity/volume) (test code = 1742-6) Ordering Physician UnknownSerum or plasma albumin/globulin mass [id number] 13:20:00Identifier 1759-0 Result Time 2019-01-12 13:20:00Unknown Test Item Value Reference Range Comments Serum or plasma albumin/globulin mass ratio 1.2 Unknown Unknown F (test code = 1759-0) Ordering Physician UnknownBlood hemoglobin A1C/total hemoglobin By [id number]- 20 13:20:00Identifier 10606-9 Result Time 2019-01-12 13:20:00Unknown Test Item Value Reference Range Comments Blood hemoglobin A1C/total hemoglobin By HPLC 7.5 % Unknown Unknown F (test code = 28599-2) Ordering Physician UnknownSerum or plasma calcium measurement (mass/volume)01-12 13:20:00Identifier 82626-8 Result Time 2019-01-12 13:20:00Unknown Test Item Value Reference Range Comments Serum or plasma calcium measurement 10.8 mg/dL Unknown Unknown F (mass/volume) (test code = 02252-6) Ordering Physician UnknownSerum or plasma aspartate aminotransferase [...] Ordering Physician UnknownSerum or plasma urea nitrogen/creatinine aqtil2888-04- 20 13:20:00Identifier 3097-3 Result Time 2019-01-12 13:20:00Unknown Test Item Value Reference Range Comments Serum or plasma urea nitrogen/creatinine 30.6 Unknown Unknown F ratio (test code = 3097-3) Ordering Physician UnknownAutomated blood platelet mean volume [id number]- 11-20 13:20:00Identifier 68326-1 Result Time 2019-01-12 13:20:00Unknown Test Item Value Reference Range Comments Automated blood platelet mean volume 7.9 fL Unknown Unknown F measurement (test code = 17395-7) Ordering Physician UnknownSerum or plasma anion [id number] 13:20: 00Identifier 77266-7 Result Time 2019-01-12 13:20:00Unknown Test Item Value Reference Range Comments Serum or plasma anion gap (test code = 2 mmol/L Unknown Unknown F 10048-4) Ordering Physician UnknownAutomated blood leukocytes count corrected for nucleated erythrocytes (number/volume)2019-01-12 13:20:00Identifier 29066-6 Result Time 2019-01-12 13:20:00Unknown Test Item Value Reference Range Comments Automated blood leukocytes count 7.6 10^3/uL Unknown Unknown F corrected for nucleated erythrocytes (number/volume) (test code = 49776-4) Ordering Physician UnknownAutomated blood nucleated erythrocytes hmntsptws8761- 11-20 13:20:00Identifier 73740-4 Result Time 2019-01-12 13:20:00Unknown Test Item Value Reference Range Comments Automated blood nucleated erythrocytes 0.0 Unknown Unknown F detection (test code = 50965-6) Ordering Physician UnknownErythrocyte sedimentation rate by Westergren [id number] 13:20:00Identifier 4537-7 Result Time 2019-01-12 13:20: 00Unknown [...] Physician UnknownEstimated glomerular filtration rate (GFR) non- Irbysoas7395-89-88 13:20:00Identifier 62150-8 Result Time 2019-01-12 13: 20:00Unknown Test Item Value Reference Range Comments Estimated glomerular filtration rate (GFR) 79.2 Unknown Unknown F non- (test code = 30979-2) Ordering Physician UnknownAutomated blood monocytes/100 [id number] 13: 20:00Identifier 5905-5 Result Time 2019-01-12 13:20:00Unknown Test Item Value Reference Range Comments Automated blood monocytes/100 leukocytes 6.2 % Unknown Unknown F (test code = 5905-5) Ordering Physician UnknownSerum or plasma albumin measurement by bromocresol green (BCG) dye binding method ([id number] 13:20:00Identifier 15391-1 Result Time 2019-01-12 13:20:00Unknown Test Item Value Reference Range Comments Serum or plasma albumin measurement by 3.6 g/dL Unknown Unknown F bromocresol green (BCG) dye binding method (ma (test code = 01184-0) Ordering Physician UnknownSerum or plasma alkaline phosphatase [...] = 704-7) Ordering Physician UnknownAutomated blood basophils/100 [id number] 13: 20:00Identifier 706-2 Result Time 2019-01-12 13:20:00Unknown [...] = 711-2) Ordering Physician UnknownAutomated blood eosinophils/100 [id number] 13:20:00Identifier 713-8 Result Time 2019-01-12 13:20:00Unknown Test [...] = 731-0) Ordering Physician UnknownAutomated blood lymphocytes/100 [id number] 13:20:00Identifier 736-9 Result Time 2019-01-12 13:20:00Unknown Test Item Value Reference Range Comments Automated blood lymphocytes/100 leukocytes 22.1 % Unknown Unknown F (test code = 736-9) Ordering Physician UnknownBlood monocytes automated count (number/volume)2018-12 13:20:00Identifier 742-7 Result Time 2019-01-12 13:20:00Unknown Test Item Value Reference Range Comments Blood monocytes automated count 0.5 10^3/ul Unknown Unknown F (number/volume) (test code = 742-7) Ordering Physician UnknownAutomated blood neutrophils/100 [id number] 13:20:00Identifier 770-8 Result Time 2019-01-12 13:20:00Unknown Test [...] UnknownAutomated erythrocyte mean corpuscular hemoglobin concentration measurement (mass/[id number] 13:20:00Identifier 786-4 Result Time 2019-01-12 13:20:00Unknown Test Item Value Reference Range Comments Automated erythrocyte mean corpuscular 33 g/dL Unknown Unknown F hemoglobin concentration measurement (mass/vol (test code = 786-4) Ordering Physician UnknownAutomated erythrocyte mean corpuscular wnzugm0785-52- 20 13:20:00Identifier 787-2 Result Time 2019-01-12 13:20:00Unknown Test Item Value Reference Range Comments Automated erythrocyte mean corpuscular volume 82 fL Unknown Unknown F (test code = 787-2) Ordering Physician UnknownAutomated erythrocyte distribution width xtpxs6844-74- 20 13:20:00Identifier 788-0 Result Time 2019-01-12 13:20:00Unknown [...] code = 789-8) Ordering Physician UnknownCT biopsy [id number] 13:20:00Identifier [id number] Result Time 2019-01-12 13:20:00Unknown Test Item Value Reference Range Comments CT biopsy liver (test code = VYR4468) 5.3 10^3/ul Unknown Unknown F Ordering Physician Unknown
--- OUTSIDE RECORDS SUMMARY | 2019-04-30 19:21 | XMS REPORT ---
:1945 Author Organization [facility] Care Team Providers Name Role Phone Unavailable Unavailable Unavailable Problems Condition Condition Condition Status Onset Resolution Last Treating Comments Name Details Category Date Date Treatment Clinician Date Hypertensiv Hypertensiv Diagnosis Active 2018-02 Zakia e heart e heart 03-14 [place] disease disease [id number] without without heart heart failure failure Type 2 Type 2 Diagnosis Active 2018-02 Zakia diabetes diabetes 03-14 [place] mellitus mellitus [id number] without without complicatio complicatio ns ns Postprocedu Postprocedu Diagnosis Active 2018-02 Zakia ral ral 03-14 [place] hypothyroid hypothyroid [id number] ism ism Other Other Diagnosis Active 2018-02 Zakia interverteb interverteb 03-14 Beatrice ral disc ral disc [id number] degeneratio degeneratio n, lumbar n, lumbar region region 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 03-14 Beat[place] pulmonary pulmonary [id number] disease, disease, unspecified unspecified Candidiasis Candidiasis Diagnosis Active 2018-02 Zakia , , 03-14 Beatrice unspecified unspecified [id number] Hyperlipide Hyperlipide Diagnosis Active Zakia abdullahi, abdullahi, Beatrice unspecified unspecified [id number] 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, terolemia, [id number] unspecified unspecified Gastro-esop Gastro-esop Diagnosis Active Zakia hageal hageal [place] reflux reflux [id number] disease disease without without esophagitis esophagitis Unspecified Unspecified Diagnosis Active Zakia osteoarthri osteoarthri Beat[place] tis, tis, [id number] unspecified unspecified site site Anemia, Anemia, Diagnosis Active Zakia unspecified unspecified [place] [id number] Dysphagia, Dysphagia, Diagnosis Active Zakia unspecified unspecified [place]rice [id number] Morbid Morbid Diagnosis Active Zakia (severe) (severe) Beatrice obesity due obesity due [id number] to excess to excess calories calories 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 Diagnosis Active Zakia (current) (current) Beatrice use of use of [id number] insulin insulin Body mass Body mass Diagnosis Active Zakia index (BMI) index (BMI) Beatrice 45.0-49.9, 45.0-49.9, [id number] adult adult 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[facility] Diagnosis Active Zakia (current) (current) [place] use of use of [id number] aspirin aspirin Personal Personal Diagnosis Active Zakia history of history of [place] nicotine nicotine 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 dependence dependence Pain frequent Pain Mgmt Active 2018-02 Ping pain 03-20 [place] 09:30: [id number] Cardio hypertensio Cardiovasc Active 2018-02 Ping n ular 03-20 [place] 09:30: [id number] 00 Respiratory dyspnea Respirator Active 2018-02 Ping present y 03-20 [place] 09:30: [id number] 00 Respiratory oxygen Respirator Active 2018-02 Ping treatments y 03-20 [place] in home 09:30: [id number] 00 Endo/Trae anti-coagul Endo/Trae Active 2018-02 Ping ation 03-20 [place] therapy 09:30: [id number] Nutrition knowledge/s Nutrition Active 2018-02 Ping kill 03-20 [place] deficit: pt 09:30: [id number] Nutrition nutritional Nutrition Active 2018-02 Ping restriction 03-20 [place] s 09:30: [id number] 00 Neuro confusion Neuro/Emot Active 2018-02 Ping present ion 03-20 [place] 09:30: [id number] 00 Neuro impaired Neuro/Emot Active 2018-02 Ping decision-ma ion 03-20 [place] promise 09:30: [id number] 00 Activity ADL Activity Active 2018-02 Ping assistance 03-20 [place] required 09:30: [id number] 00 Activity self-care Activity Active 2018-02 Ping deficit 03-20 [place] 09:30: [id number] 00 Safety structural Safety Active 2018-02 Ping barriers 03-20 [facility] 09:30: [id number] 00 Safety sanitation Safety Active 2018-02 Ping hazards 03-20 [place] present 09:30: [id number] 00 Safety fall risk Safety Active 2018-02 Ping factor 03-20 [place] present 09:30: [id number] 00 Safety risk for Safety Active 2018-02 Ping hospitaliza 03-20 [place] tion 09:30: [id number] 00 Medication oral med Meds Active 2018-02 Ping assistance 03-20 [place] required 09:30: [id number] 00 Medication injectable Meds Active 2018-02 Ping med 03-20 [place] assistance 09:30: [id number] required 00 Musculoskel transfer Musculoske Active 2018-02 Ping etal assistance letal 03-20 [place] required 09:30: [id number] 00 Musculoskel requires Musculoske Active 2018-02 Ping etal human letal 03-20 [place] assist to 09:30: [id number] leave home 00 24 Hr Diet nutrition NT: 24Hr Resolve 2018-022019-03-07 [place] intake Diet d - 15:10:00 [place] deficit 10:20: [id number] 00 24 Hr Diet knowledge/s NT: 24Hr Resolve 2018-022019-02-11 [place] kill Diet d -20 10:20:00 [place] deficit - 10:20: [id number] pt 00 Nutritional food NT: Resolve 2018-022019-02-11 [place] Barrier storage/pre Barriers d - 10:20:00 [place] p deficit 10:20: [id number] 00 Nutritional eating NT: Resolve 2018-022019-02-11 [place] Barrier difficultie Barriers d - 10:20:00 Dalton s present 10:20: [id number] 00 24 Hr Diet knowledge/s NT: 24Hr Resolve 2019-03-07 Zakia kill Diet d - 15:10:00 [place] deficit - 12:57: [id number] pt 00 Nutritional eating NT: Resolve 2019-03-07 [place] Barrier difficultie Barriers d - 15:10:00 Dalton s present 15:10: [id number] Nutritional food NT: Resolve 2019-03-07 [place] Barrier storage/pre Barriers d - 15:10:00 [place] p deficit 15:10: [id number] 00 Allergies, Adverse Reactions, Alerts Allergy Allergy [...] or plasma high density lipoprotein (HDL) cholesterol [id number] 06:10:00Identifier 2084-9 Result Time 06:10:00Unknown Test Item Value Reference Range Comments Serum or plasma high density lipoprotein 28.5 mg/dL Unknown Unknown F (HDL) cholesterol measurement (test code = 2085-9) Ordering Physician UnknownSerum or plasma low density lipoprotein (LDL) cholesterol measurement (mass/volume)2019-01-13 06:10:00Identifier 2088-1 Result Time 2019-01-13 06:10:00Unknown Test Item Value Reference Range Comments Serum or plasma low density lipoprotein 91 mg/dL Unknown Unknown F (LDL) cholesterol measurement (mass/volume) (test code = 2089-1) Ordering Physician UnknownSerum or plasma cholesterol measurement (mass/volume) 2019-01-13 06:10:00Identifier 2092-3 Result Time 2019-01-13 06:10:00Unknown Test Item Value [...] plasma troponin i.cardiac measurement (mass/ volume)2019-01-12 21:54:00Identifier 98522-6 Result Time 2019-01-12 21:54: 00Unknown Test Item Value Reference Range Comments Serum or plasma troponin i.cardiac 0.01 ng/mL Unknown Unknown F measurement (mass/volume) (test code = 14956-1) Ordering Physician UnknownSerum or plasma alanine aminotransferase measurement ( enzymatic activity/volume)2019-01-12 13:20:00Identifier 1742-6 Result Time 01-12 13:20:00Unknown Test Item Value Reference Range Comments Serum or plasma alanine aminotransferase 11 U/L Unknown Unknown F measurement (enzymatic activity/volume) (test code = 1742-6) Ordering Physician UnknownSerum or plasma albumin/globulin mass [id number] 13:20:00Identifier 1759-0 Result Time 2019-01-12 13:20:00Unknown Test Item Value Reference Range Comments Serum or plasma albumin/globulin mass ratio 1.2 Unknown Unknown F (test code = 1759-0) Ordering Physician UnknownBlood hemoglobin A1C/total hemoglobin By [id number]- 20 13:20:00Identifier 50335-5 Result Time 2019-01-12 13:20:00Unknown Test Item Value Reference Range Comments Blood hemoglobin A1C/total hemoglobin By HPLC 7.5 % Unknown Unknown F (test code = 12938-5) Ordering Physician UnknownSerum or plasma calcium measurement (mass/volume)01-12 13:20:00Identifier 05881-0 Result Time 2019-01-12 13:20:00Unknown Test Item Value Reference Range Comments Serum or plasma calcium measurement 10.8 mg/dL Unknown Unknown F (mass/volume) (test code = 08642-3) Ordering Physician UnknownSerum or plasma aspartate aminotransferase measurement (enzymatic activity/volume)2019-01-12 13:20:00Identifier 1919-09 Result Time 2019-01-12 13:20:00Unknown Test Item Value Reference Range Comments Serum or plasma aspartate aminotransferase 12 U/L Unknown Unknown F measurement (enzymatic activity/volume) (test code = 1919-09) Ordering Physician UnknownSerum or plasma total bilirubin [...] Unknown Unknown F (moles/volume) (test code = ) Ordering Physician UnknownSerum or plasma creatinine measurement (mass/volume) 2019-01-12 13:20:00Identifier 2159-0 Result Time 2019-01-12 13:20:00Unknown Test Item Value [...] Ordering Physician UnknownSerum or plasma urea nitrogen/creatinine [id number]- 20 13:20:00Identifier 3097-3 Result Time 2019-01-12 13:20:00Unknown Test Item Value Reference Range Comments Serum or plasma urea nitrogen/creatinine 30.6 Unknown Unknown F ratio (test code = 3097-3) Ordering Physician UnknownAutomated blood platelet mean volume [id number]- 11-20 13:20:00Identifier 40019-7 Result Time 2019-01-12 13:20:00Unknown Test Item Value Reference Range Comments Automated blood platelet mean volume 7.9 fL Unknown Unknown F measurement (test code = 20950-3) Ordering Physician UnknownSerum or plasma anion zvy2448-27-11 13:20: 00Identifier 82206-5 Result Time 2019-01-12 13:20:00Unknown Test Item Value Reference Range Comments Serum or plasma anion gap (test code = 2 mmol/L Unknown Unknown F 42869-7) Ordering Physician UnknownAutomated blood leukocytes count corrected for nucleated erythrocytes (number/volume)2019-01-12 13:20:00Identifier 92717-0 Result Time 2019-01-12 13:20:00Unknown Test Item Value Reference Range Comments Automated blood leukocytes count 7.6 10^3/uL Unknown Unknown F corrected for nucleated erythrocytes (number/volume) (test code = 86364-9) Ordering Physician UnknownAutomated blood nucleated erythrocytes jnrmqoyzt7466- 11-20 13:20:00Identifier 67320-6 Result Time 2019-01-12 13:20:00Unknown Test Item Value Reference Range Comments Automated blood nucleated erythrocytes 0.0 Unknown Unknown F detection (test code = 86969-5) Ordering Physician UnknownErythrocyte sedimentation rate by Westergren [id number] 13:20:00Identifier 4537-7 Result Time 2019-01-12 13:20: 00Unknown [...] Physician UnknownEstimated glomerular filtration rate (GFR) non- Umvdyhsd9225-47-93 13:20:00Identifier 68895-4 Result Time 2019-01-12 13: 20:00Unknown Test Item Value Reference Range Comments Estimated glomerular filtration rate (GFR) 79.2 Unknown Unknown F non- (test code = 95566-8) Ordering Physician UnknownAutomated blood monocytes/100 wmystxwujx9470-43-87 13: 20:00Identifier 5905-5 Result Time 2019-01-12 13:20:00Unknown Test Item Value Reference Range Comments Automated blood monocytes/100 leukocytes 6.2 % Unknown Unknown F (test code = 5905-5) Ordering Physician UnknownSerum or plasma albumin measurement by bromocresol green (BCG) dye binding method ([id number] 13:20:00Identifier 45743-9 Result Time 2019-01-12 13:20:00Unknown Test Item Value Reference Range Comments Serum or plasma albumin measurement by 3.6 g/dL Unknown Unknown F bromocresol green (BCG) dye binding method (ma (test code = 54144-4) Ordering Physician UnknownSerum or plasma alkaline phosphatase [...] = 704-7) Ordering Physician UnknownAutomated blood basophils/100 [id number] 13: 20:00Identifier 706-2 Result Time 2019-01-12 13:20:00Unknown [...] = 711-2) Ordering Physician UnknownAutomated blood eosinophils/100 mfoayspjbz9333-63-42 13:20:00Identifier 713-8 Result Time 2019-01-12 13:20:00Unknown Test [...] = 731-0) Ordering Physician UnknownAutomated blood lymphocytes/100 bhhthegaeb1251-88-59 13:20:00Identifier 736-9 Result Time 2019-01-12 13:20:00Unknown Test Item Value Reference Range Comments Automated blood lymphocytes/100 leukocytes 22.1 % Unknown Unknown F (test code = 736-9) Ordering Physician UnknownBlood monocytes automated count (number/volume)2018-12 13:20:00Identifier 742-7 Result Time 2019-01-12 13:20:00Unknown Test Item Value Reference Range Comments Blood monocytes automated count 0.5 10^3/ul Unknown Unknown F (number/volume) (test code = 742-7) Ordering Physician UnknownAutomated blood neutrophils/100 [id number] 13:20:00Identifier 770-8 Result Time 2019-01-12 13:20:00Unknown Test [...] UnknownAutomated erythrocyte mean corpuscular hemoglobin concentration measurement (mass/xvz2128-27-34 13:20:00Identifier 786-4 Result Time 2019-01-12 13:20:00Unknown Test Item Value Reference Range Comments Automated erythrocyte mean corpuscular 33 g/dL Unknown Unknown F hemoglobin concentration measurement (mass/vol (test code = 786-4) Ordering Physician UnknownAutomated erythrocyte mean corpuscular szrjja8713-68- 20 13:20:00Identifier 787-2 Result Time 2019-01-12 13:20:00Unknown Test Item Value Reference Range Comments Automated erythrocyte mean corpuscular volume 82 fL Unknown Unknown F (test code = 787-2) Ordering Physician UnknownAutomated erythrocyte distribution width [id number]- 20 13:20:00Identifier 788-0 Result Time 2019-01-12 13:20:00Unknown [...] code = 789-8) Ordering Physician UnknownCT biopsy [id number] 13:20:00Identifier [id number] Result Time 2019-01-12 13:20:00Unknown Test Item Value Reference Range Comments CT biopsy liver (test code = MKU4813) 5.3 10^3/ul Unknown Unknown F Ordering Physician Unknown
--- OUTSIDE RECORDS SUMMARY | 2019-04-30 19:21 | XMS REPORT ---
:1945 Author Organization [facility] Counts include 234 beds at the [facility] Care Team Providers Name Role Phone Unavailable Unavailable Unavailable Problems Condition Condition Condition Status Onset Resolution Last Treating Comments Name Details Category Date Date Treatment Clinician Date Hypertensiv Hypertensiv Diagnosis Active 2018-02 Zakia e heart e heart 03-14 [place] disease disease [id number] without without heart heart failure failure Type 2 Type 2 Diagnosis Active 2018-02 Zakia diabetes diabetes 03-14 [place] mellitus mellitus [id number] without without complicatio complicatio ns ns Postprocedu Postprocedu Diagnosis Active 2018-02 Zakia ral ral 03-14 [place] hypothyroid hypothyroid [id number] ism ism Other Other Diagnosis Active 2018-02 Zakia interverteb interverteb 03-14 [place]rice ral disc ral disc [id number] degeneratio degeneratio n, lumbar n, lumbar region region 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 03-14 [place] pulmonary pulmonary [id number] disease, disease, unspecified unspecified Candidiasis Candidiasis Diagnosis Active 2018-02 Zakia , , 03-14 [place] unspecified unspecified [id number] Hyperlipide Hyperlipide Diagnosis Active Zakia abdullahi, abdullahi, Beatrice unspecified unspecified [id number] 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, terolemia, [id number] unspecified unspecified Gastro-esop Gastro-esop Diagnosis Active Zakia hageal hageal [place] reflux reflux [id number] disease disease without without esophagitis esophagitis Unspecified Unspecified Diagnosis Active Zakia osteoarthri osteoarthri Beat[place] tis, tis, [id number] unspecified unspecified site site Anemia, Anemia, Diagnosis Active Zakia unspecified unspecified Beatrice [id number] Dysphagia, Dysphagia, Diagnosis Active Zakia unspecified unspecified [place]rice [id number] Morbid Morbid Diagnosis Active Zakia (severe) (severe) [place] obesity due obesity due [id number] to excess to excess calories calories intermediate frame tender half-way Diagnosis Active Zakia (current) (current) [place] use of use of [id number] insulin insulin Body mass Body mass Diagnosis Active Zakia index (BMI) index (BMI) Beatrice 45.0-49.9, 45.0-49.9, [id number] adult adult intermediate frame tender half-way Diagnosis Active Zakia (current) (current) [place] use of use of [id number] aspirin aspirin Personal Personal Diagnosis Active Zakia history of history of [place] nicotine nicotine [id number] dependence dependence Pain frequent Pain Mgmt Active 2018-02 Ping pain 03-20 [place] 09:30: [id number] 00 Cardio hypertensio Cardiovasc Active 2018-02 Ping n ular 03-20 [place] 09:30: [id number] 00 Respiratory dyspnea Respirator Active 2018-02 Ping present y 03-20 [place] 09:30: [id number] 00 Respiratory oxygen Respirator Active 2018-02 Ping treatments y 03-20 [place] in home 09:30: [id number] 00 Endo/Trae anti-coagul Endo/Trae Active 2018-02 Ping ation 03-20 [place] therapy 09:30: [id number] 00 Nutrition knowledge/s Nutrition Active 2018-02 Ping kill 03-20 [place] deficit: pt 09:30: [id number] 00 Nutrition nutritional Nutrition Active 2018-02 Ping restriction 03-20 [place] s 09:30: [id number] 00 Neuro confusion Neuro/Emot Active 2018-02 Ping present ion 03-20 [place] 09:30: [id number] 00 Neuro impaired Neuro/Emot Active 2018-02 Ping decision-ma ion 03-20 [place] promise 09:30: [id number] 00 Activity ADL Activity Active 2018-02 Ping assistance 03-20 [place] required 09:30: [id number] 00 Activity self-care Activity Active 2018-02 Ping deficit 03-20 [place] 09:30: [id number] 00 Safety structural Safety Active 2018-02 Ping barriers 03-20 [facility] 09:30: [id number] 00 Safety sanitation Safety Active 2018-02 Ping hazards 03-20 [place] present 09:30: [id number] 00 Safety fall risk Safety Active 2018-02 Ping factor 03-20 [place] present 09:30: [id number] 00 Safety risk for Safety Active 2018-02 Ping hospitaliza 03-20 [place] tion 09:30: [id number] 00 Medication oral med Meds Active 2018-02 [facility] assistance 03-20 [place] required 09:30: [id number] 00 Medication injectable Meds Active 2018-02 Ping med 03-20 [place] assistance 09:30: [id number] required 00 Musculoskel transfer Musculoske Active 2018-02 Ping etal assistance letal 03-20 [place] required 09:30: [id number] 00 Musculoskel requires Musculoske Active 2018-02 Ping etal human letal 03-20 [place] assist to 09:30: [id number] leave home 00 24 Hr Diet nutrition NT: 24Hr Active 2018-02 [place] intake Diet 2- [place] deficit 10:20: [id number] 00 24 Hr Diet knowledge/s NT: 24Hr Resolve 2018-022019-02-11 [place] kill Diet d 2-20 10:20:00 [place] deficit - 10:20: [id number] pt 00 Nutritional food NT: Resolve 2018-022019-02-11 [place] Barrier storage/pre Barriers d 2-20 10:20:00 [place] p deficit 10:20: [id number] Nutritional eating NT: Resolve 2018-022019-02-11 [place] Barrier difficultie Barriers d 2-20 10:20:00 [place] s present 10:20: [id number] 00 Allergies, Adverse Reactions, Alerts Allergy Allergy [...] Date Medication? Clinician (SIG) Name Name atenolol atenolol 2018-02 Yes Midura Unknown Unknown mg tablet [...] Unknown Comp/C/Fa/I Comp/C/Fa/I 03-20 [facility] [place] Sulf/Neil Sulf/Neil levothyroxi levothyroxi 2018-02 Yes [...] or plasma high density lipoprotein (HDL) cholesterol [id number] 06:10:00Identifier 5-9 Result Time 06:10:00Unknown Test Item [...] plasma troponin i.cardiac measurement (mass/ volume)2019-01-12 21:54:00Identifier 87080-3 Result Time 2019-01-12 21:54: 00Unknown Test Item Value Reference Range Comments Serum or plasma troponin i.cardiac 0.01 ng/mL Unknown Unknown F measurement (mass/volume) (test code = 00349-8) Ordering Physician UnknownSerum or plasma alanine aminotransferase measurement ( enzymatic activity/volume)2019-01-12 13:20:00Identifier 1742-6 Result Time 01-12 13:20:00Unknown Test Item Value Reference Range Comments Serum or plasma alanine aminotransferase 11 U/L Unknown Unknown F measurement (enzymatic activity/volume) (test code = 1742-6) Ordering Physician UnknownSerum or plasma albumin/globulin mass [id number] 13:20:00Identifier 1759-0 Result Time 2019-01-12 13:20:00Unknown Test Item Value Reference Range Comments Serum or plasma albumin/globulin mass ratio 1.2 Unknown Unknown F (test code = 1759-0) Ordering Physician UnknownBlood hemoglobin A1C/total hemoglobin By [id number]- 20 13:20:00Identifier 67147-4 Result Time 2019-01-12 13:20:00Unknown Test Item Value Reference Range Comments Blood hemoglobin A1C/total hemoglobin By HPLC 7.5 % Unknown Unknown F (test code = 42439-6) Ordering Physician UnknownSerum or plasma calcium measurement (mass/volume)01-12 13:20:00Identifier 77986-3 Result Time 2019-01-12 13:20:00Unknown Test Item Value Reference Range Comments Serum or plasma calcium measurement 10.8 mg/dL Unknown Unknown F (mass/volume) (test code = 83127-0) Ordering Physician UnknownSerum or plasma aspartate aminotransferase measurement (enzymatic activity/volume)2019-01-12 13:20:00Identifier 1920-8 Result Time 2019-01-12 13:20:00Unknown Test Item Value Reference Range Comments Serum or plasma aspartate aminotransferase 12 U/L Unknown Unknown F measurement (enzymatic activity/volume) (test code = 1920-8) Ordering Physician UnknownSerum or plasma total bilirubin measurement (mass/ volume)2019-01-12 13:20:00Identifier 1975-2 Result Time 2019-01-12 13:20: 00Unknown Test Item Value Reference Range Comments Serum or plasma total bilirubin 0.30 mg/dL Unknown Unknown F measurement (mass/volume) (test code = 1974-2) Ordering Physician UnknownSerum or plasma C reactive [...] Ordering Physician UnknownSerum or plasma urea nitrogen/creatinine [id number]- 20 13:20:00Identifier 3097-3 Result Time 2019-01-12 13:20:00Unknown Test Item Value Reference Range Comments Serum or plasma urea nitrogen/creatinine 30.6 Unknown Unknown F ratio (test code = 3097-3) Ordering Physician UnknownAutomated blood platelet mean volume mjzbznlnelu1725- 11-20 13:20:00Identifier 45298-1 Result Time 2019-01-12 13:20:00Unknown Test Item Value Reference Range Comments Automated blood platelet mean volume 7.9 fL Unknown Unknown F measurement (test code = 61857-5) Ordering Physician UnknownSerum or plasma anion [id number] 13:20: 00Identifier 29423-1 Result Time 2019-01-12 13:20:00Unknown Test Item Value Reference Range Comments Serum or plasma anion gap (test code = 2 mmol/L Unknown Unknown F 21476-5) Ordering Physician UnknownAutomated blood leukocytes count corrected for nucleated erythrocytes (number/volume)2019-01-12 13:20:00Identifier 67148-7 Result Time 2019-01-12 13:20:00Unknown Test Item Value Reference Range Comments Automated blood leukocytes count 7.6 10^3/uL Unknown Unknown F corrected for nucleated erythrocytes (number/volume) (test code = 05139-6) Ordering Physician UnknownAutomated blood nucleated erythrocytes lsapersjm3931- 11-20 13:20:00Identifier 53509-9 Result Time 2019-01-12 13:20:00Unknown Test Item Value Reference Range Comments Automated blood nucleated erythrocytes 0.0 Unknown Unknown F detection (test code = 71925-5) Ordering Physician UnknownErythrocyte sedimentation rate by Westergren [id number] 13:20:00Identifier 4537-7 Result Time 2019-01-12 13:20: 00Unknown [...] Physician UnknownEstimated glomerular filtration rate (GFR) non- Tveuhlyy0990-30-99 13:20:00Identifier 94321-0 Result Time 2019-01-12 13: 20:00Unknown Test Item Value Reference Range Comments Estimated glomerular filtration rate (GFR) 79.2 Unknown Unknown F non- (test code = 09891-2) Ordering Physician UnknownAutomated blood monocytes/100 [id number] 13: 20:00Identifier 5905-5 Result Time 2019-01-12 13:20:00Unknown Test Item Value Reference Range Comments Automated blood monocytes/100 leukocytes 6.2 % Unknown Unknown F (test code = 5905-5) Ordering Physician UnknownSerum or plasma albumin measurement by bromocresol green (BCG) dye binding method ([id number] 13:20:00Identifier 95807-1 Result Time 2019-01-12 13:20:00Unknown Test Item Value Reference Range Comments Serum or plasma albumin measurement by 3.6 g/dL Unknown Unknown F bromocresol green (BCG) dye binding method (ma (test code = 67643-0) Ordering Physician UnknownSerum or plasma alkaline phosphatase [...] = 704-7) Ordering Physician UnknownAutomated blood basophils/100 sezkjqompv0965-18-64 13: 20:00Identifier 706-2 Result Time 2019-01-12 13:20:00Unknown [...] = 711-2) Ordering Physician UnknownAutomated blood eosinophils/100 ybndkwtdou7685-86-32 13:20:00Identifier 713-8 Result Time 2019-01-12 13:20:00Unknown Test [...] = 731-0) Ordering Physician UnknownAutomated blood lymphocytes/100 lgdymaivzi3457-57-71 13:20:00Identifier 736-9 Result Time 2019-01-12 13:20:00Unknown Test Item Value Reference Range Comments Automated blood lymphocytes/100 leukocytes 22.1 % Unknown Unknown F (test code = 736-9) Ordering Physician UnknownBlood monocytes automated count (number/volume)2018-12 13:20:00Identifier 742-7 Result Time 2019-01-12 13:20:00Unknown Test Item Value Reference Range Comments Blood monocytes automated count 0.5 10^3/ul Unknown Unknown F (number/volume) (test code = 742-7) Ordering Physician UnknownAutomated blood neutrophils/100 [id number] 13:20:00Identifier 770-8 Result Time 2019-01-12 13:20:00Unknown Test [...] UnknownAutomated erythrocyte mean corpuscular hemoglobin concentration measurement (mass/umv9475-62-05 13:20:00Identifier 786-4 Result Time 2019-01-12 13:20:00Unknown Test Item Value Reference Range Comments Automated erythrocyte mean corpuscular 33 g/dL Unknown Unknown F hemoglobin concentration measurement (mass/vol (test code = 786-4) Ordering Physician UnknownAutomated erythrocyte mean corpuscular yjrxvi8981-50- 20 13:20:00Identifier 787-2 Result Time 2019-01-12 13:20:00Unknown Test Item Value Reference Range Comments Automated erythrocyte mean corpuscular volume 82 fL Unknown Unknown F (test code = 787-2) Ordering Physician UnknownAutomated erythrocyte distribution width tgidb0032-09- 20 13:20:00Identifier 788-0 Result Time 2019-01-12 13:20:00Unknown [...] code = 789-8) Ordering Physician UnknownCT biopsy zjzbt1610-10-41 13:20:00Identifier [id number] Result Time 2019-01-12 13:20:00Unknown Test Item Value Reference Range Comments CT biopsy liver (test code = YVO6278) 5.3 10^3/ul Unknown Unknown F Ordering Physician Unknown
[2019-04-30] MEDS ORDERED: Atenolol TAB* 25 MG PO ONE (19:33)
[2019-04-30 20:42] VITALS: BP 214/72
== END 2019-04-30 20:40 | disposition home or self-care (01) ==
LOC: ED 17:59
DX: S39.012A Strain of muscle, fascia and tendon of lower back, initial encounter (principal); X58.XXXA Exposure to other specified factors, initial encounter; Y92.9 Unspecified place or not applicable; E11.9 Type 2 diabetes mellitus without complications; Z79.4 Long term (current) use of insulin; E07.9 Disorder of thyroid, unspecified; E78.00 Pure hypercholesterolemia, unspecified; I10 Essential (primary) hypertension; J44.9 Chronic obstructive pulmonary disease, unspecified; Z99.81 Dependence on supplemental oxygen; M06.9 Rheumatoid arthritis, unspecified; F32.9 Major depressive disorder, single episode, unspecified; Z79.1 Long term (current) use of non-steroidal anti-inflammatories (NSAID); Z79.899 Other long term (current) drug therapy; Z91.040 Latex allergy status; Z88.5 Allergy status to narcotic agent; Z88.2 Allergy status to sulfonamides; Z91.048 Other nonmedicinal substance allergy status; Z87.891 Personal history of nicotine dependence
CPT/HCPCS: 99282; A9270-GY